=== PATIENT | male | born 1955 | race African-American/Black ===

== ENCOUNTER 2020-09-07 07:15 | Inpatient (IN) ==
[2020-09-07] MEDS ORDERED: LORazepam 2 MG/1 ML VIAL ONE (07:32)
[2020-09-07] MEDS ORDERED: LORazepam 2 MG/1 ML VIAL IV STA (08:07)
[2020-09-07 08:17] LABS: Basophils % 0.2 % (0.0-0.8); Eosinophils % 0.2 % (0.00-10.9); Hematocrit 36.9 VOL% (42.0-52.0); Hemoglobin 12.5 GM/DL (14.0-18.0); Immature Granulocytes % 0.4 %; Immature Granulocytes Absolute 0.06 #; Lymphocytes # 0.7 10*3/uL (1.4-4.0); Lymphocytes % 5.1 % (21.2-54.2); Mean Corpuscular HGB Conc 33.9 GM/DL (32-36); Mean Corpuscular Volume 87.4 FL (87-102); Mean Platelet Volume 10.5 FL (9.6-12.0); Monocytes % 2.9 % (1.7-12.7); Neutrophils % 91.2 % (38.7-73.9); Platelet Count 203 T/CUMM (130-400); Red Blood Count 4.22 MC/CUMM (3.8-5.5); Red Cell Distribution Width 12.5 % (9.3-17.3); White Blood Count 14.4 T/CUMM (4-12)
[2020-09-07 08:37] LABS: Alanine Aminotransferase 20 U/L (16-61); Alkaline Phosphatase 103 U/L (45-117); Aspartate Amino Transferase 28 U/L (0-37); Bilirubin,Total < 0.39 MG/DL (0.2-1.0); Blood Urea Nitrogen 30 MG/DL (7-18); Estimated Glom Filtration Rate 78 ML/MIN; Glucose 230 MG/DL (74-106); Osmolality,Calculated 291.4 MOS/KG (273-304); Total Protein 7.9 G/DL (6.4-8.3)
[2020-09-07 08:43] LABS: Band Neutrophils 1 % (0-10); Lymphocytes 8 % (20-55); Segmented Neutrophils 89 % (50-85); Total Cells Counted 100
[2020-09-07 08:44] LABS: Hypochromasia 1+; Microcytosis 1+
[2020-09-07 09:03] LABS: Amorphous Crystals,Urine Occasional /HPF (Few); Bacteria,Urine Occasional /HPF (Few); Bilirubin,Urine Negative (Negative); Blood, Urine Negative (Negative); Glucose,Urine (UA) >=500 mg/dL (Negative); Hyaline Casts,Urine 3 /LPF (0-3); Ketones,Urine Negative (Negative); Mucus,Urine Few /LPF (Occasional); Nitrite,Urine Negative (Negative); Protein,Urine 100 MG/DL; RBC,Urine 6 /HPF (0-4); Squamous Epithelial Cell,Urine Occasional /HPF (0-10); Urine Appearance CLEAR (Clear); Urine Color Yellow (Yellow); Urine Specific Gravity 1.021 (1.001-1.035); Urine Urobilinogen < 2.0 EU/DL (0.2-1.0); WBC,Urine 2 /HPF (0-6)
[2020-09-07] MEDS ORDERED: LORazepam 2 MG/1 ML VIAL IV PRN (10:40)
[2020-09-07] MEDS ORDERED: levETIRAcetam 500 MG/5 ML VIAL IV ONE (10:55)
[2020-09-07] MEDS ORDERED: cefTRIAXone 1,000 MG VIAL ONE (10:56)
[2020-09-07] MEDS ORDERED: hydrALAZINE 20 MG/1 ML VIAL IV PRN (10:57)
[2020-09-07] MEDS ORDERED: DEXTROSE 50% 25 GM/50 ML VIAL IV PRN (10:57)
[2020-09-07] MEDS ORDERED: ONDANSETRON 4 MG/2 ML VIAL IV PRN (10:57)
[2020-09-07] MEDS ORDERED: GLUCAGON 1 MG VIAL IM PRN (10:57)
[2020-09-07] MEDS: cefTRIAXone 2,000 MG in SYRINGE 1 EACH IV SCH (11:30)
[2020-09-07 12:25] LABS: Barbiturates Screen,Urine Negative (Negative); Benzodiazepines Screen,Urine Negative (Negative); Cannabinoid Screen,Urine Negative (Negative); Opiate Screen,Urine Negative (Negative); Phencyclidine Screen,Urine Negative (Negative)
[2020-09-07] MEDS: SODIUM CHLORIDE 0.45% 1,000 ML IV SCH ×2 (13:10→21:51)
[2020-09-07] MEDS: INSULIN LISPRO 100 UNIT/ML SUBCUT SCH ×2 (13:11→18:29)
[2020-09-07 13:28] LABS: Risk Ratio 3.54; Thyroid Stimulating Hormone 1.09 uIU/ml (0.358-3.74); VLDL CHOLESTEROL 10.6 MG/DL
[2020-09-07] MEDS: ENOXAPARIN 40 MG/0.4 ML SYRINGE SUBCUT SCH (21:39)
[2020-09-07] MEDS: INSULIN GLARGINE 100 UNIT/ML SUBCUT SCH (21:39)
[2020-09-08] MEDS: INSULIN LISPRO 100 UNIT/ML SUBCUT SCH ×5 (00:10→23:33)
[2020-09-08] MEDS: SODIUM CHLORIDE 0.45% 1,000 ML IV SCH ×2 (06:23→16:19)
[2020-09-08 06:34] LABS: Basophils % 0.2 % (0.0-0.8); Eosinophils % 0.1 % (0.00-10.9); Hematocrit 36.5 VOL% (42.0-52.0); Immature Granulocytes % 0.3 %; Immature Granulocytes Absolute 0.03 #; Lymphocytes # 1.5 10*3/uL (1.4-4.0); Lymphocytes % 13.7 % (21.2-54.2); Mean Corpuscular HGB Conc 32.9 GM/DL (32-36); Mean Corpuscular Volume 88.2 FL (87-102); Mean Platelet Volume 10.4 FL (9.6-12.0); Monocytes % 4.8 % (1.7-12.7); Neutrophils % 80.9 % (38.7-73.9); Platelet Count 215 T/CUMM (130-400); Red Blood Count 4.14 MC/CUMM (3.8-5.5); Red Cell Distribution Width 12.7 % (9.3-17.3); White Blood Count 10.7 T/CUMM (4-12)
[2020-09-08 07:27] LABS: Calcium 8.9 MG/DL (8.5-10.1); Osmolality,Calculated 284.4 MOS/KG (273-304)
[2020-09-08] MEDS: cefTRIAXone 2,000 MG in SYRINGE 1 EACH IV SCH (16:18)
[2020-09-08] MEDS: levETIRAcetam 500 MG TABLET PO SCH ×2 (16:20→20:34)
[2020-09-08] MEDS: AZITHROMYCIN 250 MG TABLET PO SCH (16:20)
[2020-09-08] MEDS: INSULIN GLARGINE 100 UNIT/ML SUBCUT SCH (20:17)
[2020-09-08] MEDS: ENOXAPARIN 40 MG/0.4 ML SYRINGE SUBCUT SCH (20:34)
[2020-09-08] MEDS: ATORVASTATIN 80 MG TABLET PO SCH (20:34)
[2020-09-08] MEDS ORDERED: ATORVASTATIN 40 MG TABLET PO SCH (21:00)
[2020-09-09] MEDS: SODIUM CHLORIDE 0.45% 1,000 ML IV SCH ×3 (00:48→18:24)
[2020-09-09 05:36] LABS: Basophils % 0.2 % (0.0-0.8); Hematocrit 34.9 VOL% (42.0-52.0); Hemoglobin 11.5 GM/DL (14.0-18.0); Immature Granulocytes % 0.2 %; Immature Granulocytes Absolute 0.02 #; Lymphocytes # 1.2 10*3/uL (1.4-4.0); Lymphocytes % 11.4 % (21.2-54.2); Mean Corpuscular Volume 88.1 FL (87-102); Mean Platelet Volume 10.7 FL (9.6-12.0); Monocytes % 5.9 % (1.7-12.7); Neutrophils % 82.3 % (38.7-73.9); Platelet Count 186 T/CUMM (130-400); Red Blood Count 3.96 MC/CUMM (3.8-5.5); Red Cell Distribution Width 12.7 % (9.3-17.3); White Blood Count 10.4 T/CUMM (4-12)
[2020-09-09 05:52] LABS: Calcium 8.2 MG/DL (8.5-10.1); Osmolality,Calculated 286.7 MOS/KG (273-304)
[2020-09-09] MEDS: INSULIN LISPRO 100 UNIT/ML SUBCUT SCH ×4 (05:57→23:47)
[2020-09-09] MEDS: AZITHROMYCIN 250 MG TABLET PO SCH (10:06)
[2020-09-09] MEDS: DONEPEZIL 10 MG TABLET PO SCH (10:06)
[2020-09-09] MEDS: levETIRAcetam 500 MG TABLET PO SCH ×2 (10:07→20:57)
[2020-09-09] MEDS: PANTOPRAZOLE 40 MG TABLET PO SCH (10:07)
[2020-09-09] MEDS: SERTRALINE 100 MG TABLET PO SCH (10:07)
[2020-09-09] MEDS: amLODIPine 5 MG TABLET PO SCH (10:07)
[2020-09-09] MEDS: ASPIRIN CHEW 81 MG TABLET PO SCH (10:10)
[2020-09-09] MEDS: cefTRIAXone 2,000 MG in SYRINGE 1 EACH IV SCH (10:45)
[2020-09-09] MEDS: ACETAMINOPHEN 325 MG TABLET PO PRN (11:40)
[2020-09-09 18:20] LABS: Bilirubin,Urine Negative (Negative); Blood, Urine Negative (Negative); Glucose,Urine (UA) Negative (Negative); Ketones,Urine 5 mg/dL (Negative); Mucus,Urine Occasional /LPF (Occasional); Nitrite,Urine Negative (Negative); Protein,Urine 100 MG/DL; RBC,Urine 4 /HPF (0-4); Urine Appearance Slightly Hazy (Clear); Urine Color Amber (Yellow); Urine Specific Gravity 1.029 (1.001-1.035); Urine Urobilinogen < 2.0 EU/DL (0.2-1.0); WBC,Urine 2 /HPF (0-6)
[2020-09-09 19:08] LABS: Ferritin 677.4 ng/ml (26-388)
[2020-09-09] MEDS: ENOXAPARIN 40 MG/0.4 ML SYRINGE SUBCUT SCH (20:57)
[2020-09-09] MEDS: ATORVASTATIN 80 MG TABLET PO SCH (20:57)
[2020-09-09] MEDS: INSULIN GLARGINE 100 UNIT/ML SUBCUT SCH (23:45)
[2020-09-10] MEDS: SODIUM CHLORIDE 0.45% 1,000 ML IV SCH ×3 (02:58→10:23)
[2020-09-10] MEDS: INSULIN LISPRO 100 UNIT/ML SUBCUT SCH ×3 (05:12→17:58)
[2020-09-10 06:03] LABS: Basophils % 0.2 % (0.0-0.8); Eosinophils % 0.1 % (0.00-10.9); Hematocrit 32.5 VOL% (42.0-52.0); Hemoglobin 10.9 GM/DL (14.0-18.0); Immature Granulocytes % 0.4 %; Immature Granulocytes Absolute 0.04 #; Lymphocytes # 1.2 10*3/uL (1.4-4.0); Lymphocytes % 12.5 % (21.2-54.2); Mean Corpuscular HGB Conc 33.5 GM/DL (32-36); Mean Corpuscular Volume 87.8 FL (87-102); Mean Platelet Volume 10.8 FL (9.6-12.0); Monocytes % 8.9 % (1.7-12.7); Neutrophils % 77.9 % (38.7-73.9); Platelet Count 166 T/CUMM (130-400); Red Cell Distribution Width 12.6 % (9.3-17.3); White Blood Count 9.3 T/CUMM (4-12)
[2020-09-10 06:30] LABS: Calcium 8.1 MG/DL (8.5-10.1); Osmolality,Calculated 286.7 MOS/KG (273-304)
[2020-09-10] MEDS: SERTRALINE 100 MG TABLET PO SCH (09:49)
[2020-09-10] MEDS: ASPIRIN CHEW 81 MG TABLET PO SCH (09:49)
[2020-09-10] MEDS: DONEPEZIL 10 MG TABLET PO SCH (09:50)
[2020-09-10] MEDS: PANTOPRAZOLE 40 MG TABLET PO SCH (09:50)
[2020-09-10] MEDS: levETIRAcetam 500 MG TABLET PO SCH ×2 (09:50→20:24)
[2020-09-10] MEDS: ACETAMINOPHEN 325 MG TABLET PO PRN (09:50)
[2020-09-10] MEDS: AZITHROMYCIN 250 MG TABLET PO SCH (09:50)
[2020-09-10] MEDS: amLODIPine 5 MG TABLET PO SCH (09:50)
[2020-09-10] MEDS: cefTRIAXone 2,000 MG in SYRINGE 1 EACH IV SCH (10:23)
[2020-09-10] MEDS: POLYETHYLENE GLYCOL POWDER 17 GM PACK PO SCH (16:08)
[2020-09-10 18:00] LABS: Amorphous Crystals,Urine Occasional /HPF (Few); Bacteria,Urine Few /HPF (Few); Bilirubin,Urine Negative (Negative); Blood, Urine Negative (Negative); Glucose,Urine (UA) 50 mg/dL (Negative); Ketones,Urine 20 mg/dL (Negative); Nitrite,Urine Negative (Negative); Protein,Urine 30 MG/DL; Squamous Epithelial Cell,Urine Occasional /HPF (0-10); Urine Appearance Slightly Hazy (Clear); Urine Color Yellow (Yellow); Urine Specific Gravity 1.024 (1.001-1.035); Urine Urobilinogen < 2.0 EU/DL (0.2-1.0)
[2020-09-10] MEDS: ENOXAPARIN 40 MG/0.4 ML SYRINGE SUBCUT SCH (20:24)
[2020-09-10] MEDS: ATORVASTATIN 80 MG TABLET PO SCH (20:24)
[2020-09-10] MEDS: INSULIN GLARGINE 100 UNIT/ML SUBCUT SCH (20:25)
[2020-09-11] MEDS: INSULIN LISPRO 100 UNIT/ML SUBCUT SCH ×4 (00:48→17:38)
[2020-09-11] MEDS: SODIUM CHLORIDE 0.45% 1,000 ML IV SCH ×4 (04:25→22:39)
[2020-09-11 06:06] LABS: Basophils % 0.2 % (0.0-0.8); Eosinophils # 0.1 10*3/uL (0.0-0.87); Eosinophils % 0.7 % (0.00-10.9); Hematocrit 31.9 VOL% (42.0-52.0); Hemoglobin 10.7 GM/DL (14.0-18.0); Immature Granulocytes % 0.5 %; Immature Granulocytes Absolute 0.05 #; Lymphocytes # 0.8 10*3/uL (1.4-4.0); Lymphocytes % 7.9 % (21.2-54.2); Mean Corpuscular HGB Conc 33.5 GM/DL (32-36); Mean Corpuscular Volume 86.7 FL (87-102); Mean Platelet Volume 10.5 FL (9.6-12.0); Monocytes % 8.5 % (1.7-12.7); Neutrophils % 82.2 % (38.7-73.9); Platelet Count 168 T/CUMM (130-400); Red Blood Count 3.68 MC/CUMM (3.8-5.5); Red Cell Distribution Width 12.5 % (9.3-17.3); White Blood Count 10.2 T/CUMM (4-12)
[2020-09-11 06:23] LABS: Calcium 8.5 MG/DL (8.5-10.1); Osmolality,Calculated 284.8 MOS/KG (273-304)
[2020-09-11] MEDS: levETIRAcetam 500 MG TABLET PO SCH ×2 (09:09→20:40)
[2020-09-11] MEDS: POLYETHYLENE GLYCOL POWDER 17 GM PACK PO SCH (09:09)
[2020-09-11] MEDS: PANTOPRAZOLE 40 MG TABLET PO SCH (09:10)
[2020-09-11] MEDS: AZITHROMYCIN 250 MG TABLET PO SCH (09:10)
[2020-09-11] MEDS: SERTRALINE 100 MG TABLET PO SCH (09:10)
[2020-09-11] MEDS: DONEPEZIL 10 MG TABLET PO SCH (09:10)
[2020-09-11] MEDS: amLODIPine 5 MG TABLET PO SCH (09:10)
[2020-09-11] MEDS: ASPIRIN CHEW 81 MG TABLET PO SCH (09:10)
[2020-09-11] MEDS: cefTRIAXone 2,000 MG in SYRINGE 1 EACH IV SCH (11:50)
[2020-09-11 12:35] LABS: Calcium 8.7 MG/DL (8.5-10.1); Osmolality,Calculated 290.5 MOS/KG (273-304)
[2020-09-11 12:41] LABS: ABG Base Excess -2.4 MMOL/L (-2.5-2.5); ABG HCO3 22.4 MMOL/L (20-26); ABG Oxygen Saturation 97.5 % (95-100); ABG PCO2 35.7 MM HG (35-48); ABG PH 7.396 (7.35-7.45); ABG PO2 96.1 MM HG (80-95); ABG TCO2 19.3 MMOL/L (23-27)
[2020-09-11] MEDS: ACETAMINOPHEN 325 MG TABLET PO PRN (15:38)
[2020-09-11] MEDS: ENOXAPARIN 40 MG/0.4 ML SYRINGE SUBCUT SCH (20:40)
[2020-09-11] MEDS: ATORVASTATIN 80 MG TABLET PO SCH (20:40)
[2020-09-11] MEDS: INSULIN GLARGINE 100 UNIT/ML SUBCUT SCH (20:52)
[2020-09-12] MEDS: INSULIN LISPRO 100 UNIT/ML SUBCUT SCH ×4 (00:40→18:02)
[2020-09-12] MEDS: SODIUM CHLORIDE 0.45% 1,000 ML IV SCH ×3 (03:48→17:36)
[2020-09-12 05:53] LABS: Basophils % 0.2 % (0.0-0.8); Eosinophils % 0.3 % (0.00-10.9); Hematocrit 29.6 VOL% (42.0-52.0); Hemoglobin 9.7 GM/DL (14.0-18.0); Immature Granulocytes % 0.4 %; Immature Granulocytes Absolute 0.06 #; Lymphocytes # 0.9 10*3/uL (1.4-4.0); Lymphocytes % 6.3 % (21.2-54.2); Mean Corpuscular HGB Conc 32.8 GM/DL (32-36); Mean Corpuscular Volume 88.1 FL (87-102); Mean Platelet Volume 11.2 FL (9.6-12.0); Monocytes % 6.7 % (1.7-12.7); Neutrophils % 86.1 % (38.7-73.9); Platelet Count 199 T/CUMM (130-400); Red Blood Count 3.36 MC/CUMM (3.8-5.5); Red Cell Distribution Width 12.4 % (9.3-17.3); White Blood Count 14.6 T/CUMM (4-12)
[2020-09-12 06:09] LABS: Calcium 8.6 MG/DL (8.5-10.1); Osmolality,Calculated 283.8 MOS/KG (273-304)
[2020-09-12 06:21] LABS: Band Neutrophils 5 % (0-10); Lymphocytes 3 % (20-55); Nucleated Red Blood Cells 1 (0-5); Platelet Estimate Adequate; Segmented Neutrophils 88 % (50-85); Total Cells Counted 100
[2020-09-12 06:22] LABS: Hypochromasia 1+; Microcytosis 1+
[2020-09-12] MEDS: ASPIRIN CHEW 81 MG TABLET PO SCH (08:51)
[2020-09-12] MEDS: amLODIPine 5 MG TABLET PO SCH (08:51)
[2020-09-12] MEDS: PANTOPRAZOLE 40 MG TABLET PO SCH (08:51)
[2020-09-12] MEDS: DONEPEZIL 10 MG TABLET PO SCH (08:51)
[2020-09-12] MEDS: SERTRALINE 100 MG TABLET PO SCH (08:51)
[2020-09-12] MEDS: AZITHROMYCIN 250 MG TABLET PO SCH (08:51)
[2020-09-12] MEDS: levETIRAcetam 500 MG TABLET PO SCH (08:51)
[2020-09-12] MEDS: POLYETHYLENE GLYCOL POWDER 17 GM PACK PO SCH (10:50)
[2020-09-12] MEDS ORDERED: PHENYTOIN INJ 1,000 MG in SODIUM CHLORIDE 0.9% 100 ML IV ONE (11:25)
[2020-09-12] MEDS: CEFEPIME 1,000 MG in SODIUM CHLORIDE 0.9% 100 ML IV SCH ×2 (11:57→18:19)
[2020-09-12] MEDS: CLINDAMYCIN INJ 600 MG in PREMIX 1 EACH IV SCH ×2 (13:54→21:18)
[2020-09-12] MEDS: ATORVASTATIN 80 MG TABLET PO SCH (21:13)
[2020-09-12] MEDS: ENOXAPARIN 40 MG/0.4 ML SYRINGE SUBCUT SCH (21:14)
[2020-09-12] MEDS: PHENYTOIN 100 MG/2 ML VIAL IV SCH (21:18)
[2020-09-12] MEDS: INSULIN GLARGINE 100 UNIT/ML SUBCUT SCH (21:18)
[2020-09-13] MEDS: INSULIN LISPRO 100 UNIT/ML SUBCUT SCH ×4 (00:35→17:24)
[2020-09-13] MEDS: CEFEPIME 1,000 MG in SODIUM CHLORIDE 0.9% 100 ML IV SCH ×5 (00:38→23:11)
[2020-09-13] MEDS: CLINDAMYCIN INJ 600 MG in PREMIX 1 EACH IV SCH ×3 (04:48→20:38)
[2020-09-13] MEDS: PHENYTOIN 100 MG/2 ML VIAL IV SCH ×3 (04:48→20:37)
[2020-09-13] MEDS: SODIUM CHLORIDE 0.45% 1,000 ML IV SCH ×2 (06:20→15:57)
[2020-09-13 06:24] LABS: Basophils % 0.2 % (0.0-0.8); Eosinophils # 0.2 10*3/uL (0.0-0.87); Eosinophils % 1.4 % (0.00-10.9); Hematocrit 30.2 VOL% (42.0-52.0); Hemoglobin 10.1 GM/DL (14.0-18.0); Immature Granulocytes % 1.1 %; Immature Granulocytes Absolute 0.17 #; Lymphocytes # 1.1 10*3/uL (1.4-4.0); Mean Corpuscular HGB Conc 33.4 GM/DL (32-36); Mean Corpuscular Volume 87.3 FL (87-102); Mean Platelet Volume 10.7 FL (9.6-12.0); Neutrophils % 83.3 % (38.7-73.9); Platelet Count 204 T/CUMM (130-400); Red Blood Count 3.46 MC/CUMM (3.8-5.5); Red Cell Distribution Width 12.8 % (9.3-17.3); White Blood Count 15.4 T/CUMM (4-12)
[2020-09-13 06:48] LABS: Calcium 8.3 MG/DL (8.5-10.1); Osmolality,Calculated 284.5 MOS/KG (273-304)
[2020-09-13] MEDS: ASPIRIN CHEW 81 MG TABLET PO SCH (09:29)
[2020-09-13] MEDS: amLODIPine 5 MG TABLET PO SCH (09:29)
[2020-09-13] MEDS: PANTOPRAZOLE 40 MG TABLET PO SCH (09:29)
[2020-09-13] MEDS: DONEPEZIL 10 MG TABLET PO SCH (09:29)
[2020-09-13] MEDS: SERTRALINE 100 MG TABLET PO SCH (09:31)
[2020-09-13] MEDS: POLYETHYLENE GLYCOL POWDER 17 GM PACK PO SCH (09:42)
[2020-09-13] MEDS: ATORVASTATIN 80 MG TABLET PO SCH (20:37)
[2020-09-13] MEDS: ENOXAPARIN 40 MG/0.4 ML SYRINGE SUBCUT SCH (20:37)
[2020-09-13] MEDS: INSULIN GLARGINE 100 UNIT/ML SUBCUT SCH (20:39)
[2020-09-14] MEDS: INSULIN LISPRO 100 UNIT/ML SUBCUT SCH ×5 (00:23→23:26)
[2020-09-14] MEDS: SODIUM CHLORIDE 0.45% 1,000 ML IV SCH ×3 (00:53→16:38)
[2020-09-14] MEDS: PHENYTOIN 100 MG/2 ML VIAL IV SCH ×3 (03:06→19:35)
[2020-09-14] MEDS: CLINDAMYCIN INJ 600 MG in PREMIX 1 EACH IV SCH ×3 (04:09→20:07)
[2020-09-14] MEDS: CEFEPIME 1,000 MG in SODIUM CHLORIDE 0.9% 100 ML IV SCH ×4 (05:24→23:08)
[2020-09-14 06:44] LABS: Basophils % 0.3 % (0.0-0.8); Eosinophils # 0.2 10*3/uL (0.0-0.87); Eosinophils % 1.2 % (0.00-10.9); Hematocrit 28.6 VOL% (42.0-52.0); Hemoglobin 9.4 GM/DL (14.0-18.0); Immature Granulocytes % 1.5 %; Immature Granulocytes Absolute 0.22 #; Lymphocytes # 1.2 10*3/uL (1.4-4.0); Lymphocytes % 8.4 % (21.2-54.2); Mean Corpuscular HGB Conc 32.9 GM/DL (32-36); Mean Corpuscular Volume 87.5 FL (87-102); Mean Platelet Volume 10.3 FL (9.6-12.0); Monocytes % 5.8 % (1.7-12.7); Neutrophils % 82.8 % (38.7-73.9); Platelet Count 244 T/CUMM (130-400); Red Blood Count 3.27 MC/CUMM (3.8-5.5); Red Cell Distribution Width 12.8 % (9.3-17.3); White Blood Count 14.7 T/CUMM (4-12)
[2020-09-14 06:47] LABS: Calcium 8.2 MG/DL (8.5-10.1); Osmolality,Calculated 285.3 MOS/KG (273-304)
[2020-09-14] MEDS: ASPIRIN CHEW 81 MG TABLET PO SCH (08:58)
[2020-09-14] MEDS: DONEPEZIL 10 MG TABLET PO SCH (08:58)
[2020-09-14] MEDS: SERTRALINE 100 MG TABLET PO SCH (08:58)
[2020-09-14] MEDS: amLODIPine 5 MG TABLET PO SCH (08:59)
[2020-09-14] MEDS: PANTOPRAZOLE 40 MG TABLET PO SCH (08:59)
[2020-09-14] MEDS: POLYETHYLENE GLYCOL POWDER 17 GM PACK PO SCH (10:10)
[2020-09-14] MEDS: ATORVASTATIN 80 MG TABLET PO SCH (20:08)
[2020-09-14] MEDS: INSULIN GLARGINE 100 UNIT/ML SUBCUT SCH (20:08)
[2020-09-14] MEDS: ENOXAPARIN 40 MG/0.4 ML SYRINGE SUBCUT SCH (20:08)
[2020-09-15] MEDS: PHENYTOIN 100 MG/2 ML VIAL IV SCH ×3 (03:32→20:30)
[2020-09-15] MEDS: CLINDAMYCIN INJ 600 MG in PREMIX 1 EACH IV SCH ×3 (04:11→20:32)
[2020-09-15] MEDS: CEFEPIME 1,000 MG in SODIUM CHLORIDE 0.9% 100 ML IV SCH ×4 (05:02→23:29)
[2020-09-15 05:55] LABS: Basophils % 0.3 % (0.0-0.8); Eosinophils # 0.2 10*3/uL (0.0-0.87); Eosinophils % 1.2 % (0.00-10.9); Hematocrit 30.7 VOL% (42.0-52.0); Hemoglobin 10.4 GM/DL (14.0-18.0); Immature Granulocytes % 3.9 %; Immature Granulocytes Absolute 0.51 #; Lymphocytes # 1.4 10*3/uL (1.4-4.0); Lymphocytes % 10.6 % (21.2-54.2); Mean Corpuscular HGB Conc 33.9 GM/DL (32-36); Mean Corpuscular Volume 87.2 FL (87-102); Mean Platelet Volume 10.1 FL (9.6-12.0); Monocytes % 6.6 % (1.7-12.7); Neutrophils % 77.4 % (38.7-73.9); Platelet Count 273 T/CUMM (130-400); Red Blood Count 3.52 MC/CUMM (3.8-5.5); Red Cell Distribution Width 12.9 % (9.3-17.3)
[2020-09-15 05:57] LABS: Calcium 8.4 MG/DL (8.5-10.1); Osmolality,Calculated 283.3 MOS/KG (273-304)
[2020-09-15] MEDS: INSULIN LISPRO 100 UNIT/ML SUBCUT SCH ×3 (06:01→17:55)
[2020-09-15] MEDS: SODIUM CHLORIDE 0.45% 1,000 ML IV SCH ×3 (06:32→19:43)
[2020-09-15 08:17] LABS: Band Neutrophils 5 % (0-10); Eosinophils 1 % (0-10); Lymphocytes 15 % (20-55); Platelet Estimate Normal; Segmented Neutrophils 73 % (50-85); Total Cells Counted 100
[2020-09-15 08:18] LABS: Anisocytosis 1+
[2020-09-15] MEDS: SERTRALINE 100 MG TABLET PO SCH (10:03)
[2020-09-15] MEDS: DONEPEZIL 10 MG TABLET PO SCH (10:03)
[2020-09-15] MEDS: ASPIRIN CHEW 81 MG TABLET PO SCH (10:03)
[2020-09-15] MEDS: amLODIPine 5 MG TABLET PO SCH (10:03)
[2020-09-15] MEDS: PANTOPRAZOLE 40 MG TABLET PO SCH (10:03)
[2020-09-15] MEDS: POLYETHYLENE GLYCOL POWDER 17 GM PACK PO SCH (10:04)
[2020-09-15] MEDS: ENOXAPARIN 40 MG/0.4 ML SYRINGE SUBCUT SCH (20:31)
[2020-09-15] MEDS: INSULIN GLARGINE 100 UNIT/ML SUBCUT SCH (20:32)
[2020-09-15] MEDS: ATORVASTATIN 80 MG TABLET PO SCH (20:32)
[2020-09-16] MEDS: INSULIN LISPRO 100 UNIT/ML SUBCUT SCH ×4 (00:03→17:45)
[2020-09-16] MEDS: SODIUM CHLORIDE 0.45% 1,000 ML IV SCH ×3 (01:28→16:34)
[2020-09-16] MEDS: PHENYTOIN 100 MG/2 ML VIAL IV SCH ×3 (03:15→20:54)
[2020-09-16] MEDS: CLINDAMYCIN INJ 600 MG in PREMIX 1 EACH IV SCH ×3 (04:19→21:22)
[2020-09-16] MEDS: CEFEPIME 1,000 MG in SODIUM CHLORIDE 0.9% 100 ML IV SCH ×4 (05:15→23:51)
[2020-09-16 06:26] LABS: Basophils % 0.3 % (0.0-0.8); Eosinophils # 0.1 10*3/uL (0.0-0.87); Eosinophils % 0.7 % (0.00-10.9); Hematocrit 30.9 VOL% (42.0-52.0); Hemoglobin 10.3 GM/DL (14.0-18.0); Immature Granulocytes % 3.7 %; Lymphocytes # 1.1 10*3/uL (1.4-4.0); Lymphocytes % 8.3 % (21.2-54.2); Mean Corpuscular HGB Conc 33.3 GM/DL (32-36); Mean Corpuscular Volume 88.3 FL (87-102); Mean Platelet Volume 10.3 FL (9.6-12.0); Monocytes % 6.8 % (1.7-12.7); Neutrophils % 80.2 % (38.7-73.9); Platelet Count 276 T/CUMM (130-400); Red Cell Distribution Width 12.6 % (9.3-17.3); White Blood Count 13.5 T/CUMM (4-12)
[2020-09-16 06:40] LABS: Calcium 8.4 MG/DL (8.5-10.1); Osmolality,Calculated 284.5 MOS/KG (273-304)
[2020-09-16] MEDS: ASPIRIN CHEW 81 MG TABLET PO SCH (09:41)
[2020-09-16] MEDS: amLODIPine 5 MG TABLET PO SCH (09:41)
[2020-09-16] MEDS: POLYETHYLENE GLYCOL POWDER 17 GM PACK PO SCH (09:41)
[2020-09-16] MEDS: DONEPEZIL 10 MG TABLET PO SCH (09:41)
[2020-09-16] MEDS: PANTOPRAZOLE 40 MG TABLET PO SCH (09:41)
[2020-09-16] MEDS: SERTRALINE 100 MG TABLET PO SCH (09:42)
[2020-09-16] MEDS: ENOXAPARIN 40 MG/0.4 ML SYRINGE SUBCUT SCH (21:59)
[2020-09-16] MEDS: INSULIN GLARGINE 100 UNIT/ML SUBCUT SCH (21:59)
[2020-09-16] MEDS: ATORVASTATIN 80 MG TABLET PO SCH (21:59)
[2020-09-17] MEDS: INSULIN LISPRO 100 UNIT/ML SUBCUT SCH ×4 (00:45→18:34)
[2020-09-17] MEDS: SODIUM CHLORIDE 0.45% 1,000 ML IV SCH ×3 (01:00→20:32)
[2020-09-17] MEDS: PHENYTOIN 100 MG/2 ML VIAL IV SCH ×3 (03:54→17:20)
[2020-09-17] MEDS ORDERED: ALBUTEROL/IPRATROPIUM 3 ML NEB RESP TX PRN (04:01)
[2020-09-17] MEDS ORDERED: methylPREDNISolone SOD SUC 40 MG/1 ML VIAL IV ONE (04:30)
[2020-09-17] MEDS: CLINDAMYCIN INJ 600 MG in PREMIX 1 EACH IV SCH ×3 (05:20→21:25)
[2020-09-17 06:55] LABS: Basophils % 0.2 % (0.0-0.8); Eosinophils # 0.1 10*3/uL (0.0-0.87); Eosinophils % 0.4 % (0.00-10.9); Hematocrit 32.9 VOL% (42.0-52.0); Hemoglobin 10.9 GM/DL (14.0-18.0); Immature Granulocytes % 1.9 %; Immature Granulocytes Absolute 0.32 #; Lymphocytes # 1.2 10*3/uL (1.4-4.0); Lymphocytes % 6.8 % (21.2-54.2); Mean Corpuscular HGB Conc 33.1 GM/DL (32-36); Mean Corpuscular Volume 88.7 FL (87-102); Mean Platelet Volume 10.6 FL (9.6-12.0); Monocytes % 5.2 % (1.7-12.7); Neutrophils % 85.5 % (38.7-73.9); Platelet Count 235 T/CUMM (130-400); Red Blood Count 3.71 MC/CUMM (3.8-5.5); Red Cell Distribution Width 12.9 % (9.3-17.3)
[2020-09-17] MEDS ORDERED: ALBUTEROL/IPRATROPIUM 3 ML NEB RESP TX SCH (07:00)
[2020-09-17] MEDS: CEFEPIME 1,000 MG in SODIUM CHLORIDE 0.9% 100 ML IV SCH ×3 (07:00→18:34)
[2020-09-17] MEDS: ALBUTEROL/IPRATROPIUM 3 ML NEB RESP TX SCH ×4 (07:19→23:40)
[2020-09-17 07:34] LABS: Calcium 8.1 MG/DL (8.5-10.1); Osmolality,Calculated 272.1 MOS/KG (273-304)
[2020-09-17] MEDS ORDERED: ACETAMINOPHEN 650 MG SUPP RECTAL PRN (07:50)
[2020-09-17] MEDS: amLODIPine 5 MG TABLET PO SCH (09:00)
[2020-09-17] MEDS: SERTRALINE 100 MG TABLET PO SCH (09:00)
[2020-09-17] MEDS: PANTOPRAZOLE 40 MG TABLET PO SCH (09:00)
[2020-09-17] MEDS: POLYETHYLENE GLYCOL POWDER 17 GM PACK PO SCH (09:00)
[2020-09-17] MEDS: ASPIRIN CHEW 81 MG TABLET PO SCH (09:00)
[2020-09-17] MEDS: DONEPEZIL 10 MG TABLET PO SCH (09:00)
[2020-09-17] MEDS: INSULIN GLARGINE 100 UNIT/ML SUBCUT SCH (20:32)
[2020-09-17] MEDS: ATORVASTATIN 80 MG TABLET PO SCH (20:32)
[2020-09-17] MEDS: ENOXAPARIN 40 MG/0.4 ML SYRINGE SUBCUT SCH (21:25)
[2020-09-18] MEDS: CEFEPIME 1,000 MG in SODIUM CHLORIDE 0.9% 100 ML IV SCH ×4 (00:25→18:19)
[2020-09-18] MEDS: INSULIN LISPRO 100 UNIT/ML SUBCUT SCH ×4 (00:25→18:44)
[2020-09-18] MEDS: PHENYTOIN 100 MG/2 ML VIAL IV SCH ×4 (00:25→18:20)
[2020-09-18] MEDS: ALBUTEROL/IPRATROPIUM 3 ML NEB RESP TX SCH ×7 (03:49→23:38)
[2020-09-18] MEDS: CLINDAMYCIN INJ 600 MG in PREMIX 1 EACH IV SCH ×3 (05:26→22:04)
[2020-09-18 06:14] LABS: Basophils % 0.3 % (0.0-0.8); Eosinophils # 0.1 10*3/uL (0.0-0.87); Eosinophils % 0.8 % (0.00-10.9); Hematocrit 27.6 VOL% (42.0-52.0); Hemoglobin 9.1 GM/DL (14.0-18.0); Immature Granulocytes % 1.7 %; Immature Granulocytes Absolute 0.25 #; Lymphocytes # 1.5 10*3/uL (1.4-4.0); Lymphocytes % 9.8 % (21.2-54.2); Mean Platelet Volume 9.6 FL (9.6-12.0); Monocytes % 5.6 % (1.7-12.7); Neutrophils % 81.8 % (38.7-73.9); Platelet Count 263 T/CUMM (130-400); Red Cell Distribution Width 13.2 % (9.3-17.3); White Blood Count 15.1 T/CUMM (4-12)
[2020-09-18 06:30] LABS: Calcium 8.1 MG/DL (8.5-10.1)
[2020-09-18] MEDS: DONEPEZIL 10 MG TABLET PO SCH (10:58)
[2020-09-18] MEDS: ASPIRIN CHEW 81 MG TABLET PO SCH (10:58)
[2020-09-18] MEDS: amLODIPine 5 MG TABLET PO SCH (10:59)
[2020-09-18] MEDS: SERTRALINE 100 MG TABLET PO SCH (10:59)
[2020-09-18] MEDS: POLYETHYLENE GLYCOL POWDER 17 GM PACK PO SCH (10:59)
[2020-09-18] MEDS: PANTOPRAZOLE 40 MG TABLET PO SCH (11:01)
[2020-09-18] MEDS: SODIUM CHLORIDE 0.45% 1,000 ML IV SCH (12:04)
[2020-09-18] MEDS: POTASSIUM CHLORIDE RIDER 10 MEQ in PREMIX 1 EACH IV PRN ×3 (15:20→17:23)
[2020-09-18] MEDS: ENOXAPARIN 40 MG/0.4 ML SYRINGE SUBCUT SCH (22:14)
[2020-09-18] MEDS: ATORVASTATIN 80 MG TABLET PO SCH (22:17)
[2020-09-18] MEDS: INSULIN GLARGINE 100 UNIT/ML SUBCUT SCH (23:46)
[2020-09-19] MEDS: CEFEPIME 1,000 MG in SODIUM CHLORIDE 0.9% 100 ML IV SCH ×4 (00:39→23:15)
[2020-09-19] MEDS: INSULIN LISPRO 100 UNIT/ML SUBCUT SCH ×4 (00:45→18:30)
[2020-09-19] MEDS: PHENYTOIN 100 MG/2 ML VIAL IV SCH ×4 (00:50→18:23)
[2020-09-19] MEDS: POTASSIUM CHLORIDE RIDER 10 MEQ in PREMIX 1 EACH IV PRN (02:35)
[2020-09-19] MEDS: ALBUTEROL/IPRATROPIUM 3 ML NEB RESP TX SCH ×6 (04:35→23:56)
[2020-09-19 06:12] LABS: Basophils % 0.2 % (0.0-0.8); Eosinophils # 0.1 10*3/uL (0.0-0.87); Hemoglobin 9.8 GM/DL (14.0-18.0); Immature Granulocytes Absolute 0.26 #; Lymphocytes # 1.7 10*3/uL (1.4-4.0); Lymphocytes % 13.3 % (21.2-54.2); Mean Corpuscular HGB Conc 32.7 GM/DL (32-36); Mean Platelet Volume 9.4 FL (9.6-12.0); Monocytes % 7.3 % (1.7-12.7); Neutrophils % 76.2 % (38.7-73.9); Platelet Count 317 T/CUMM (130-400); Red Blood Count 3.37 MC/CUMM (3.8-5.5); White Blood Count 12.8 T/CUMM (4-12)
[2020-09-19] MEDS: CLINDAMYCIN INJ 600 MG in PREMIX 1 EACH IV SCH ×2 (07:00→16:28)
[2020-09-19 08:49] LABS: Calcium 8.6 MG/DL (8.5-10.1); Osmolality,Calculated 282.4 MOS/KG (273-304)
[2020-09-19] MEDS: ASPIRIN CHEW 81 MG TABLET PO SCH (12:04)
[2020-09-19] MEDS: PANTOPRAZOLE 40 MG TABLET PO SCH (12:04)
[2020-09-19] MEDS: POLYETHYLENE GLYCOL POWDER 17 GM PACK PO SCH (12:04)
[2020-09-19] MEDS: amLODIPine 5 MG TABLET PO SCH (12:04)
[2020-09-19] MEDS: DONEPEZIL 10 MG TABLET PO SCH (12:04)
[2020-09-19] MEDS: SERTRALINE 100 MG TABLET PO SCH (12:05)
[2020-09-19] MEDS: SODIUM CHLORIDE 0.45% 1,000 ML IV SCH (12:10)
[2020-09-19] MEDS: ENOXAPARIN 40 MG/0.4 ML SYRINGE SUBCUT SCH (21:31)
[2020-09-19] MEDS: INSULIN GLARGINE 100 UNIT/ML SUBCUT SCH (21:38)
[2020-09-19] MEDS: ATORVASTATIN 80 MG TABLET PO SCH (21:39)
[2020-09-20] MEDS: CLINDAMYCIN INJ 600 MG in PREMIX 1 EACH IV SCH (00:10)
[2020-09-20] MEDS: PHENYTOIN 100 MG/2 ML VIAL IV SCH ×4 (01:02→17:22)
[2020-09-20] MEDS: INSULIN LISPRO 100 UNIT/ML SUBCUT SCH ×4 (01:31→18:34)
[2020-09-20] MEDS: ALBUTEROL/IPRATROPIUM 3 ML NEB RESP TX SCH ×6 (03:15→23:01)
[2020-09-20 05:41] LABS: Basophils % 0.2 % (0.0-0.8); Eosinophils # 0.1 10*3/uL (0.0-0.87); Hematocrit 30.2 VOL% (42.0-52.0); Hemoglobin 9.9 GM/DL (14.0-18.0); Immature Granulocytes % 1.4 %; Immature Granulocytes Absolute 0.14 #; Lymphocytes # 1.2 10*3/uL (1.4-4.0); Lymphocytes % 11.7 % (21.2-54.2); Mean Corpuscular HGB Conc 32.8 GM/DL (32-36); Mean Corpuscular Volume 89.1 FL (87-102); Mean Platelet Volume 9.3 FL (9.6-12.0); Monocytes % 6.6 % (1.7-12.7); Neutrophils % 79.1 % (38.7-73.9); Platelet Count 322 T/CUMM (130-400); Red Blood Count 3.39 MC/CUMM (3.8-5.5); Red Cell Distribution Width 13.1 % (9.3-17.3); White Blood Count 10.1 T/CUMM (4-12)
[2020-09-20 05:55] LABS: Calcium 8.6 MG/DL (8.5-10.1); Osmolality,Calculated 278.5 MOS/KG (273-304)
[2020-09-20] MEDS: SERTRALINE 100 MG TABLET PO SCH (09:40)
[2020-09-20] MEDS: PANTOPRAZOLE 40 MG TABLET PO SCH (09:40)
[2020-09-20] MEDS: ASPIRIN CHEW 81 MG TABLET PO SCH (09:40)
[2020-09-20] MEDS: POLYETHYLENE GLYCOL POWDER 17 GM PACK PO SCH (09:40)
[2020-09-20] MEDS: DONEPEZIL 10 MG TABLET PO SCH (09:40)
[2020-09-20] MEDS: amLODIPine 5 MG TABLET PO SCH (09:40)
[2020-09-20] MEDS: SODIUM CHLORIDE 0.45% 1,000 ML IV SCH (15:04)
[2020-09-20] MEDS: ATORVASTATIN 80 MG TABLET PO SCH (21:38)
[2020-09-20] MEDS: ENOXAPARIN 40 MG/0.4 ML SYRINGE SUBCUT SCH (21:38)
[2020-09-20] MEDS: INSULIN GLARGINE 100 UNIT/ML SUBCUT SCH (21:43)
[2020-09-21] MEDS: PHENYTOIN 100 MG/2 ML VIAL IV SCH ×4 (00:14→20:02)
[2020-09-21] MEDS: INSULIN LISPRO 100 UNIT/ML SUBCUT SCH ×4 (00:15→18:34)
[2020-09-21] MEDS: ALBUTEROL/IPRATROPIUM 3 ML NEB RESP TX SCH ×6 (03:55→23:58)
[2020-09-21 06:18] LABS: Basophils % 0.3 % (0.0-0.8); Eosinophils # 0.1 10*3/uL (0.0-0.87); Hematocrit 32.3 VOL% (42.0-52.0); Hemoglobin 10.5 GM/DL (14.0-18.0); Immature Granulocytes Absolute 0.11 #; Lymphocytes # 1.6 10*3/uL (1.4-4.0); Mean Corpuscular HGB Conc 32.5 GM/DL (32-36); Mean Corpuscular Volume 89.5 FL (87-102); Mean Platelet Volume 9.6 FL (9.6-12.0); Monocytes % 5.6 % (1.7-12.7); Neutrophils % 78.1 % (38.7-73.9); Platelet Count 332 T/CUMM (130-400); Red Blood Count 3.61 MC/CUMM (3.8-5.5); Red Cell Distribution Width 12.7 % (9.3-17.3); White Blood Count 11.2 T/CUMM (4-12)
[2020-09-21 06:39] LABS: Calcium 8.8 MG/DL (8.5-10.1); Osmolality,Calculated 278.4 MOS/KG (273-304)
[2020-09-21 06:41] LABS: Hypochromasia 1+; Microcytosis 1+; Platelet Estimate Adequate
[2020-09-21] MEDS: DONEPEZIL 10 MG TABLET PO SCH (09:30)
[2020-09-21] MEDS: ASPIRIN CHEW 81 MG TABLET PO SCH (09:30)
[2020-09-21] MEDS: PANTOPRAZOLE 40 MG TABLET PO SCH (09:31)
[2020-09-21] MEDS: amLODIPine 5 MG TABLET PO SCH (09:31)
[2020-09-21] MEDS: POLYETHYLENE GLYCOL POWDER 17 GM PACK PO SCH (09:31)
[2020-09-21] MEDS: SERTRALINE 100 MG TABLET PO SCH (09:31)
[2020-09-21] MEDS: POTASSIUM CHLORIDE RIDER 10 MEQ in PREMIX 1 EACH IV PRN ×4 (09:32→14:00)
[2020-09-21] MEDS: PANTOPRAZOLE 40 MG VIAL IV SCH (16:53)
[2020-09-21] MEDS: INSULIN GLARGINE 100 UNIT/ML SUBCUT SCH (21:51)
[2020-09-21] MEDS: ENOXAPARIN 40 MG/0.4 ML SYRINGE SUBCUT SCH (21:52)
[2020-09-21] MEDS: ATORVASTATIN 80 MG TABLET PO SCH (21:52)
[2020-09-22] MEDS: PHENYTOIN 100 MG/2 ML VIAL IV SCH ×4 (00:58→18:21)
[2020-09-22] MEDS: INSULIN LISPRO 100 UNIT/ML SUBCUT SCH ×4 (00:59→17:47)
[2020-09-22] MEDS: SODIUM CHLORIDE 0.45% 1,000 ML IV SCH ×2 (03:21→21:19)
[2020-09-22] MEDS: ALBUTEROL/IPRATROPIUM 3 ML NEB RESP TX SCH ×6 (03:28→23:53)
[2020-09-22 06:35] LABS: Basophils % 0.3 % (0.0-0.8); Eosinophils # 0.1 10*3/uL (0.0-0.87); Eosinophils % 0.7 % (0.00-10.9); Hematocrit 29.3 VOL% (42.0-52.0); Hemoglobin 9.6 GM/DL (14.0-18.0); Immature Granulocytes Absolute 0.12 #; Lymphocytes # 1.6 10*3/uL (1.4-4.0); Lymphocytes % 13.1 % (21.2-54.2); Mean Corpuscular HGB Conc 32.8 GM/DL (32-36); Mean Corpuscular Volume 89.9 FL (87-102); Mean Platelet Volume 9.7 FL (9.6-12.0); Monocytes % 5.1 % (1.7-12.7); Neutrophils % 79.8 % (38.7-73.9); Platelet Count 329 T/CUMM (130-400); Red Blood Count 3.26 MC/CUMM (3.8-5.5); Red Cell Distribution Width 12.6 % (9.3-17.3); White Blood Count 12.1 T/CUMM (4-12)
[2020-09-22 06:47] LABS: INR 1.1; PT Patient Result 11.3 SECS (9.8-11.9)
[2020-09-22 06:55] LABS: Albumin 2.2 G/DL (3.4-5.0); Bilirubin,Total 0.7 MG/DL (0.2-1.0); Calcium 8.6 MG/DL (8.5-10.1); Osmolality,Calculated 275.5 MOS/KG (273-304); Osmolality,Calculated 277.4 MOS/KG (273-304); Total Protein 7.7 G/DL (6.4-8.3)
[2020-09-22 07:02] LABS: Lymphocytes 10 % (20-55); Platelet Estimate Adequate; Segmented Neutrophils 87 % (50-85); Total Cells Counted 100
[2020-09-22 07:03] LABS: Hypochromasia 1+; Microcytosis 1+; Ovalocytes Slight
[2020-09-22] MEDS: ASPIRIN CHEW 81 MG TABLET PO SCH (09:35)
[2020-09-22] MEDS: amLODIPine 5 MG TABLET PO SCH (09:35)
[2020-09-22] MEDS: POLYETHYLENE GLYCOL POWDER 17 GM PACK PO SCH (09:35)
[2020-09-22] MEDS: DONEPEZIL 10 MG TABLET PO SCH (09:35)
[2020-09-22] MEDS: SERTRALINE 100 MG TABLET PO SCH (09:36)
[2020-09-22] MEDS: PANTOPRAZOLE 40 MG VIAL IV SCH (09:42)
[2020-09-22] MEDS: ATORVASTATIN 80 MG TABLET PO SCH (21:23)
[2020-09-22] MEDS: INSULIN GLARGINE 100 UNIT/ML SUBCUT SCH (21:23)
[2020-09-22] MEDS: ENOXAPARIN 40 MG/0.4 ML SYRINGE SUBCUT SCH (21:24)
[2020-09-23] MEDS: PHENYTOIN 100 MG/2 ML VIAL IV SCH ×4 (01:02→18:59)
[2020-09-23] MEDS: INSULIN LISPRO 100 UNIT/ML SUBCUT SCH ×4 (03:56→18:00)
[2020-09-23] MEDS: ALBUTEROL/IPRATROPIUM 3 ML NEB RESP TX SCH ×6 (03:57→23:33)
[2020-09-23] MEDS: SODIUM CHLORIDE 0.45% 1,000 ML IV SCH ×5 (06:15→22:45)
[2020-09-23 06:41] LABS: Basophils % 0.3 % (0.0-0.8); Eosinophils # 0.1 10*3/uL (0.0-0.87); Eosinophils % 1.2 % (0.00-10.9); Hematocrit 31.8 VOL% (42.0-52.0); Hemoglobin 10.3 GM/DL (14.0-18.0); Immature Granulocytes % 0.9 %; Immature Granulocytes Absolute 0.08 #; Lymphocytes # 1.4 10*3/uL (1.4-4.0); Mean Corpuscular HGB Conc 32.4 GM/DL (32-36); Mean Corpuscular Volume 89.8 FL (87-102); Mean Platelet Volume 9.6 FL (9.6-12.0); Neutrophils % 76.6 % (38.7-73.9); Platelet Count 290 T/CUMM (130-400); Red Blood Count 3.54 MC/CUMM (3.8-5.5); Red Cell Distribution Width 12.6 % (9.3-17.3); White Blood Count 9.4 T/CUMM (4-12)
[2020-09-23 06:58] LABS: Calcium 8.7 MG/DL (8.5-10.1); Osmolality,Calculated 274.5 MOS/KG (273-304)
[2020-09-23 07:06] LABS: Hypochromasia 1+
[2020-09-23 07:07] LABS: Microcytosis 1+; Platelet Estimate Normal
[2020-09-23] MEDS: ASPIRIN CHEW 81 MG TABLET PO SCH (08:10)
[2020-09-23] MEDS: amLODIPine 5 MG TABLET PO SCH (08:10)
[2020-09-23] MEDS: POLYETHYLENE GLYCOL POWDER 17 GM PACK PO SCH (08:10)
[2020-09-23] MEDS: DONEPEZIL 10 MG TABLET PO SCH (08:10)
[2020-09-23] MEDS: SERTRALINE 100 MG TABLET PO SCH (08:10)
[2020-09-23] MEDS: PANTOPRAZOLE 40 MG VIAL IV SCH (10:40)
[2020-09-23] MEDS: ATORVASTATIN 80 MG TABLET PO SCH (20:52)
[2020-09-23] MEDS: INSULIN GLARGINE 100 UNIT/ML SUBCUT SCH (20:52)
[2020-09-24] MEDS: PHENYTOIN 100 MG/2 ML VIAL IV SCH ×3 (00:52→14:07)
[2020-09-24] MEDS: INSULIN LISPRO 100 UNIT/ML SUBCUT SCH ×4 (00:54→19:20)
[2020-09-24] MEDS: ALBUTEROL/IPRATROPIUM 3 ML NEB RESP TX SCH ×6 (03:27→23:20)
[2020-09-24] MEDS ORDERED: ceFAZolin 1,000 MG in SYRINGE 1 EACH IV ONE (08:19)
[2020-09-24 09:21] LABS: INR 1.1; PT Patient Result 11.4 SECS (9.8-11.9)
[2020-09-24] MEDS: LACTATED RINGERS 1,000 ML IV SCH (10:11)
[2020-09-24] MEDS ORDERED: propofoL 200 MG/20 ML VIAL IV ONE ×2 (12:15→12:39)
[2020-09-24] MEDS ORDERED: LIDOCAINE 2% 5 ML VIAL ONE (12:15)
[2020-09-24] MEDS: PANTOPRAZOLE 40 MG VIAL IV SCH (14:07)
[2020-09-24] MEDS: SODIUM CHLORIDE 0.45% 1,000 ML IV SCH ×3 (14:14→23:40)
[2020-09-24] MEDS: DONEPEZIL 10 MG TABLET PO SCH (16:46)
[2020-09-24] MEDS: amLODIPine 5 MG TABLET PO SCH (16:46)
[2020-09-24] MEDS: ASPIRIN CHEW 81 MG TABLET PO SCH (16:46)
[2020-09-24] MEDS: POLYETHYLENE GLYCOL POWDER 17 GM PACK PO SCH (16:46)
[2020-09-24] MEDS: SERTRALINE 100 MG TABLET PO SCH (16:47)
[2020-09-24] MEDS: PHENYTOIN ER 100 MG CAPSULE PO SCH (20:54)
[2020-09-24] MEDS: ATORVASTATIN 80 MG TABLET PO SCH (20:54)
[2020-09-24] MEDS: INSULIN GLARGINE 100 UNIT/ML SUBCUT SCH (20:54)
[2020-09-24] MEDS: levETIRAcetam 500 MG TABLET PO SCH (20:54)
[2020-09-25] MEDS: INSULIN LISPRO 100 UNIT/ML SUBCUT SCH ×4 (00:31→19:05)
[2020-09-25] MEDS: ALBUTEROL/IPRATROPIUM 3 ML NEB RESP TX SCH ×5 (03:00→19:26)
[2020-09-25 05:50] LABS: Basophils % 0.2 % (0.0-0.8); Eosinophils # 0.1 10*3/uL (0.0-0.87); Eosinophils % 0.5 % (0.00-10.9); Hematocrit 28.7 VOL% (42.0-52.0); Hemoglobin 9.3 GM/DL (14.0-18.0); Immature Granulocytes % 0.3 %; Immature Granulocytes Absolute 0.04 #; Lymphocytes # 1.4 10*3/uL (1.4-4.0); Lymphocytes % 11.4 % (21.2-54.2); Mean Corpuscular HGB Conc 32.4 GM/DL (32-36); Mean Corpuscular Volume 89.4 FL (87-102); Mean Platelet Volume 9.2 FL (9.6-12.0); Monocytes % 4.2 % (1.7-12.7); Neutrophils % 83.4 % (38.7-73.9); Platelet Count 288 T/CUMM (130-400); Red Blood Count 3.21 MC/CUMM (3.8-5.5); Red Cell Distribution Width 12.7 % (9.3-17.3); White Blood Count 11.9 T/CUMM (4-12)
[2020-09-25 06:10] LABS: Hypochromasia 1+; Microcytosis 1+; Platelet Estimate Adequate
[2020-09-25 06:26] LABS: Calcium 8.4 MG/DL (8.5-10.1); Osmolality,Calculated 278.3 MOS/KG (273-304)
[2020-09-25] MEDS: PANTOPRAZOLE 40 MG VIAL IV SCH (09:28)
[2020-09-25] MEDS: POTASSIUM CHLORIDE RIDER 10 MEQ in PREMIX 1 EACH IV PRN ×3 (09:28→12:55)
[2020-09-25] MEDS: amLODIPine 5 MG TABLET PO SCH (09:29)
[2020-09-25] MEDS: POLYETHYLENE GLYCOL POWDER 17 GM PACK PO SCH (09:30)
[2020-09-25] MEDS: SERTRALINE 100 MG TABLET PO SCH (09:30)
[2020-09-25] MEDS: levETIRAcetam 500 MG TABLET PO SCH ×2 (09:30→22:36)
[2020-09-25] MEDS: DONEPEZIL 10 MG TABLET PO SCH (09:30)
[2020-09-25] MEDS: PHENYTOIN ER 100 MG CAPSULE PO SCH ×2 (09:30→22:36)
[2020-09-25] MEDS: ASPIRIN CHEW 81 MG TABLET PO SCH (09:50)
[2020-09-25] MEDS: SODIUM CHLORIDE 0.45% 1,000 ML IV SCH (11:01)
[2020-09-25] MEDS: LACTATED RINGERS 1,000 ML IV SCH (15:31)
[2020-09-25] MEDS: INSULIN GLARGINE 100 UNIT/ML SUBCUT SCH (22:34)
[2020-09-25] MEDS: ATORVASTATIN 80 MG TABLET PO SCH (22:36)
[2020-09-26] MEDS: ALBUTEROL/IPRATROPIUM 3 ML NEB RESP TX SCH ×4 (00:05→10:57)
[2020-09-26] MEDS: INSULIN LISPRO 100 UNIT/ML SUBCUT SCH ×2 (00:44→05:58)
[2020-09-26 06:23] LABS: Basophils % 0.3 % (0.0-0.8); Eosinophils # 0.1 10*3/uL (0.0-0.87); Eosinophils % 0.5 % (0.00-10.9); Hematocrit 30.9 VOL% (42.0-52.0); Hemoglobin 10.1 GM/DL (14.0-18.0); Immature Granulocytes % 0.5 %; Immature Granulocytes Absolute 0.05 #; Lymphocytes # 1.3 10*3/uL (1.4-4.0); Mean Corpuscular HGB Conc 32.7 GM/DL (32-36); Mean Corpuscular Volume 89.6 FL (87-102); Mean Platelet Volume 9.5 FL (9.6-12.0); Monocytes % 6.4 % (1.7-12.7); Neutrophils % 80.3 % (38.7-73.9); Platelet Count 295 T/CUMM (130-400); Red Blood Count 3.45 MC/CUMM (3.8-5.5); Red Cell Distribution Width 12.9 % (9.3-17.3); White Blood Count 10.9 T/CUMM (4-12)
[2020-09-26 06:47] LABS: Calcium 8.5 MG/DL (8.5-10.1); Osmolality,Calculated 277.5 MOS/KG (273-304)
[2020-09-26] MEDS: ASPIRIN CHEW 81 MG TABLET PO SCH (09:38)
[2020-09-26] MEDS: POLYETHYLENE GLYCOL POWDER 17 GM PACK PO SCH (09:38)
[2020-09-26] MEDS: PHENYTOIN ER 100 MG CAPSULE PO SCH (09:38)
[2020-09-26] MEDS: amLODIPine 5 MG TABLET PO SCH (09:39)
[2020-09-26] MEDS: levETIRAcetam 500 MG TABLET PO SCH (09:39)
[2020-09-26] MEDS: SERTRALINE 100 MG TABLET PO SCH (09:40)
[2020-09-26] MEDS: DONEPEZIL 10 MG TABLET PO SCH (09:54)
[2020-09-26] MEDS: PANTOPRAZOLE 40 MG VIAL IV SCH (09:55)
[2020-09-26 11:28] VITALS: BP 132/70
[2020-09-26] MEDS: ENOXAPARIN 40 MG/0.4 ML SYRINGE SUBCUT SCH (12:10)
[2020-09-26] MEDS: LACTATED RINGERS 1,000 ML IV SCH (12:11)
== END 2020-09-26 16:32 | DRG 100 ==
LOC: EDBD → EDUNIT# → N.EDINP 07:15 → N.ED 07:15 → SUATTDRO 10:39 → N.3E 12:03 → SUATTDRO 09-09 10:19
PROVIDERS: ADMIT Emergency Medicine; ATTEND Internal Medicine
PROC: EGDWPEG (ICD-10-PCS; 2020-09-24 11:35)

== ENCOUNTER 2020-12-26 09:10 | Inpatient (IN) ==
[2020-12-26 10:44] LABS: Basophils % 0.1 % (0.0-0.8); Hematocrit 38.1 VOL% (42.0-52.0); Hemoglobin 12.5 GM/DL (14.0-18.0); Immature Granulocytes % 0.3 %; Immature Granulocytes Absolute 0.05 #; Lymphocytes % 6.3 % (21.2-54.2); Mean Corpuscular HGB Conc 32.8 GM/DL (32-36); Mean Platelet Volume 10.4 FL (9.6-12.0); Monocytes % 3.6 % (1.7-12.7); Neutrophils % 89.7 % (38.7-73.9); Platelet Count 199 T/CUMM (130-400); Red Blood Count 4.28 MC/CUMM (3.8-5.5); Red Cell Distribution Width 13.1 % (9.3-17.3); White Blood Count 15.2 T/CUMM (4-12)
[2020-12-26 11:05] LABS: Alanine Aminotransferase 26 U/L (16-61); Albumin 3.2 G/DL (3.4-5.0); Alkaline Phosphatase 163 U/L (45-117); Aspartate Amino Transferase 22 U/L (0-37); Bilirubin,Total < 0.39 MG/DL (0.2-1.0); Blood Urea Nitrogen 14 MG/DL (7-18); Calcium 8.8 MG/DL (8.5-10.1); Carbon Dioxide 29 MMOL/L (21-32); Estimated Glom Filtration Rate 129 ML/MIN; Glucose 92 MG/DL (74-106); Osmolality,Calculated 281.3 MOS/KG (273-304); Potassium 3.6 MMOL/L (3.5-5.1); Sodium 141 MMOL/L (136-145); Total Protein 8.6 G/DL (5.0-7.5)
[2020-12-26 11:15] LABS: Bacteria,Urine Occasional /HPF (Few); Bilirubin,Urine Negative (Negative); Blood, Urine Small mg/dL (Negative); Glucose,Urine (UA) Negative (Negative); Ketones,Urine Negative (Negative); Mucus,Urine Few /LPF (Occasional); Nitrite,Urine Negative (Negative); Protein,Urine 100 MG/DL; RBC,Urine 8 /HPF (0-4); Squamous Epithelial Cell,Urine Occasional /HPF (0-10); Urine Appearance CLEAR (Clear); Urine Color Yellow (Yellow); Urine Urobilinogen < 2.0 EU/DL (0.2-1.0); WBC,Urine <1 /HPF (0-6)
[2020-12-26] MEDS ORDERED: cefTRIAXone 1,000 MG in SODIUM CHLORIDE 0.9% 100 ML IV STA (11:21)
[2020-12-26] MEDS ORDERED: AZITHROMYCIN INJ 500 MG in SODIUM CHLORIDE 0.9% 250 ML IV STA (11:21)
[2020-12-26] MEDS ORDERED: DEXTROSE 50% 25 GM/50 ML VIAL IV PRN ×2 (12:22→13:40)
[2020-12-26] MEDS ORDERED: GLUCAGON 1 MG VIAL IM PRN ×2 (12:22→13:40)
[2020-12-26] MEDS ORDERED: ONDANSETRON 4 MG/2 ML VIAL IV PRN (13:40)
[2020-12-26] MEDS ORDERED: ENOXAPARIN 30 MG/0.3 ML SYRINGE SUBCUT SCH (14:00)
[2020-12-26] MEDS: CEFEPIME 1,000 MG in SODIUM CHLORIDE 0.9% 100 ML IV SCH ×2 (17:39→21:46)
[2020-12-26] MEDS: INSULIN LISPRO 100 UNIT/ML SUBCUT SCH (17:40)
[2020-12-26] MEDS ORDERED: hydrALAZINE 20 MG/1 ML VIAL IV PRN (17:45)
[2020-12-26] MEDS: ALBUTEROL/IPRATROPIUM 3 ML NEB RESP TX SCH (19:23)
[2020-12-26] MEDS: PHENYTOIN ER 100 MG CAPSULE PO SCH (21:45)
[2020-12-26] MEDS: ACETAMINOPHEN 325 MG TABLET PEG PRN (21:45)
[2020-12-26] MEDS: ATORVASTATIN 80 MG TABLET PEG SCH (21:45)
[2020-12-26] MEDS: levETIRAcetam 500 MG TABLET PO SCH (21:45)
[2020-12-27] MEDS: INSULIN LISPRO 100 UNIT/ML SUBCUT SCH ×4 (00:15→17:22)
[2020-12-27] MEDS: ALBUTEROL/IPRATROPIUM 3 ML NEB RESP TX SCH ×4 (00:22→19:02)
[2020-12-27] MEDS: ACETAMINOPHEN 325 MG TABLET PEG PRN (01:46)
[2020-12-27] MEDS: CEFEPIME 1,000 MG in SODIUM CHLORIDE 0.9% 100 ML IV SCH ×4 (04:18→21:33)
[2020-12-27 05:30] LABS: Basophils % 0.2 % (0.0-0.8); Hematocrit 33.8 VOL% (42.0-52.0); Hemoglobin 11.1 GM/DL (14.0-18.0); Immature Granulocytes % 0.4 %; Immature Granulocytes Absolute 0.05 #; Lymphocytes # 1.7 10*3/uL (1.4-4.0); Lymphocytes % 13.2 % (21.2-54.2); Mean Corpuscular HGB Conc 32.8 GM/DL (32-36); Mean Corpuscular Volume 88.5 FL (87-102); Mean Platelet Volume 10.6 FL (9.6-12.0); Monocytes % 6.1 % (1.7-12.7); Neutrophils % 80.1 % (38.7-73.9); Platelet Count 169 T/CUMM (130-400); Red Blood Count 3.82 MC/CUMM (3.8-5.5); Red Cell Distribution Width 13.5 % (9.3-17.3)
[2020-12-27 05:45] LABS: Calcium 8.6 MG/DL (8.5-10.1); Osmolality,Calculated 279.5 MOS/KG (273-304); Potassium 3.9 MMOL/L (3.5-5.1)
[2020-12-27] MEDS: POLYETHYLENE GLYCOL POWDER 17 GM PACK PEG SCH (08:30)
[2020-12-27] MEDS: DONEPEZIL 10 MG TABLET PEG SCH (08:30)
[2020-12-27] MEDS: PHENYTOIN ER 100 MG CAPSULE PO SCH ×2 (08:30→21:34)
[2020-12-27] MEDS: MULTIVITAMIN (CENTRUM) TABLET PEG SCH (08:30)
[2020-12-27] MEDS: amLODIPine 5 MG TABLET PEG SCH (08:30)
[2020-12-27] MEDS: levETIRAcetam 500 MG TABLET PO SCH ×2 (08:30→21:34)
[2020-12-27] MEDS: ASPIRIN CHEW 81 MG TABLET PO SCH (08:31)
[2020-12-27] MEDS: SERTRALINE 100 MG TABLET PEG SCH (08:31)
[2020-12-27] MEDS: PANTOPRAZOLE 40 MG TABLET PO SCH (08:36)
[2020-12-27] MEDS: ATORVASTATIN 80 MG TABLET PEG SCH (21:34)
[2020-12-27] MEDS: ENOXAPARIN 40 MG/0.4 ML SYRINGE SUBCUT SCH (21:34)
[2020-12-28] MEDS: ALBUTEROL/IPRATROPIUM 3 ML NEB RESP TX SCH ×4 (00:47→19:17)
[2020-12-28] MEDS: INSULIN LISPRO 100 UNIT/ML SUBCUT SCH ×4 (00:57→18:06)
[2020-12-28] MEDS: CEFEPIME 1,000 MG in SODIUM CHLORIDE 0.9% 100 ML IV SCH ×5 (04:09→21:34)
[2020-12-28 06:00] LABS: Basophils % 0.2 % (0.0-0.8); Eosinophils % 0.2 % (0.00-10.9); Hematocrit 32.3 VOL% (42.0-52.0); Hemoglobin 10.3 GM/DL (14.0-18.0); Immature Granulocytes % 0.5 %; Immature Granulocytes Absolute 0.05 #; Lymphocytes # 1.2 10*3/uL (1.4-4.0); Lymphocytes % 11.4 % (21.2-54.2); Mean Corpuscular HGB Conc 31.9 GM/DL (32-36); Mean Corpuscular Volume 91.5 FL (87-102); Monocytes % 6.7 % (1.7-12.7); Platelet Count 162 T/CUMM (130-400); Red Blood Count 3.53 MC/CUMM (3.8-5.5); Red Cell Distribution Width 13.3 % (9.3-17.3); White Blood Count 10.2 T/CUMM (4-12)
[2020-12-28 06:22] LABS: Calcium 8.6 MG/DL (8.5-10.1); Osmolality,Calculated 286.5 MOS/KG (273-304); Potassium 4.1 MMOL/L (3.5-5.1)
[2020-12-28] MEDS: levETIRAcetam 500 MG TABLET PO SCH ×2 (08:32→21:39)
[2020-12-28] MEDS: SERTRALINE 100 MG TABLET PEG SCH (08:32)
[2020-12-28] MEDS: PANTOPRAZOLE 40 MG TABLET PO SCH (08:32)
[2020-12-28] MEDS: ASPIRIN CHEW 81 MG TABLET PO SCH (08:32)
[2020-12-28] MEDS: POLYETHYLENE GLYCOL POWDER 17 GM PACK PEG SCH (08:32)
[2020-12-28] MEDS: amLODIPine 5 MG TABLET PEG SCH (08:32)
[2020-12-28] MEDS: PHENYTOIN ER 100 MG CAPSULE PO SCH ×2 (08:32→21:38)
[2020-12-28] MEDS: MULTIVITAMIN (CENTRUM) TABLET PEG SCH (08:32)
[2020-12-28] MEDS: DONEPEZIL 10 MG TABLET PEG SCH (08:32)
[2020-12-28] MEDS: ENOXAPARIN 40 MG/0.4 ML SYRINGE SUBCUT SCH (21:39)
[2020-12-28] MEDS: ATORVASTATIN 80 MG TABLET PEG SCH (21:39)
[2020-12-29] MEDS: ALBUTEROL/IPRATROPIUM 3 ML NEB RESP TX SCH ×4 (00:10→19:19)
[2020-12-29] MEDS: INSULIN LISPRO 100 UNIT/ML SUBCUT SCH ×4 (00:15→17:39)
[2020-12-29] MEDS: CEFEPIME 1,000 MG in SODIUM CHLORIDE 0.9% 100 ML IV SCH ×4 (03:46→21:46)
[2020-12-29 05:34] LABS: Basophils % 0.2 % (0.0-0.8); Eosinophils # 0.1 10*3/uL (0.0-0.87); Hematocrit 32.4 VOL% (42.0-52.0); Hemoglobin 10.2 GM/DL (14.0-18.0); Immature Granulocytes % 0.3 %; Immature Granulocytes Absolute 0.03 #; Lymphocytes # 1.1 10*3/uL (1.4-4.0); Lymphocytes % 12.4 % (21.2-54.2); Mean Corpuscular HGB Conc 31.5 GM/DL (32-36); Mean Corpuscular Volume 91.8 FL (87-102); Mean Platelet Volume 10.7 FL (9.6-12.0); Monocytes % 6.1 % (1.7-12.7); Platelet Count 154 T/CUMM (130-400); Red Blood Count 3.53 MC/CUMM (3.8-5.5); Red Cell Distribution Width 13.2 % (9.3-17.3); White Blood Count 8.6 T/CUMM (4-12)
[2020-12-29 06:07] LABS: Calcium 8.5 MG/DL (8.5-10.1); Osmolality,Calculated 292.1 MOS/KG (273-304); Potassium 4.2 MMOL/L (3.5-5.1)
[2020-12-29] MEDS: ASPIRIN CHEW 81 MG TABLET PO SCH (09:06)
[2020-12-29] MEDS: POLYETHYLENE GLYCOL POWDER 17 GM PACK PEG SCH (09:06)
[2020-12-29] MEDS: MULTIVITAMIN (CENTRUM) TABLET PEG SCH (09:06)
[2020-12-29] MEDS: levETIRAcetam 500 MG TABLET PO SCH ×2 (09:06→21:49)
[2020-12-29] MEDS: amLODIPine 5 MG TABLET PEG SCH (09:07)
[2020-12-29] MEDS: PHENYTOIN ER 100 MG CAPSULE PO SCH ×2 (09:07→21:49)
[2020-12-29] MEDS: PANTOPRAZOLE 40 MG TABLET PO SCH (09:07)
[2020-12-29] MEDS: DONEPEZIL 10 MG TABLET PEG SCH (09:08)
[2020-12-29] MEDS: SERTRALINE 100 MG TABLET PEG SCH (09:08)
[2020-12-29] MEDS: ATORVASTATIN 80 MG TABLET PEG SCH (21:49)
[2020-12-29] MEDS: ENOXAPARIN 40 MG/0.4 ML SYRINGE SUBCUT SCH (21:50)
[2020-12-30] MEDS: INSULIN LISPRO 100 UNIT/ML SUBCUT SCH ×3 (01:23→15:41)
[2020-12-30] MEDS: ALBUTEROL/IPRATROPIUM 3 ML NEB RESP TX SCH ×3 (01:36→13:00)
[2020-12-30] MEDS: CEFEPIME 1,000 MG in SODIUM CHLORIDE 0.9% 100 ML IV SCH ×3 (02:53→15:47)
[2020-12-30 06:34] LABS: Basophils % 0.3 % (0.0-0.8); Eosinophils # 0.1 10*3/uL (0.0-0.87); Eosinophils % 1.7 % (0.00-10.9); Hematocrit 32.3 VOL% (42.0-52.0); Hemoglobin 10.4 GM/DL (14.0-18.0); Immature Granulocytes % 0.5 %; Immature Granulocytes Absolute 0.03 #; Lymphocytes % 14.4 % (21.2-54.2); Mean Corpuscular HGB Conc 32.2 GM/DL (32-36); Mean Platelet Volume 11.1 FL (9.6-12.0); Monocytes % 5.9 % (1.7-12.7); Neutrophils % 77.2 % (38.7-73.9); Platelet Count 164 T/CUMM (130-400); Red Blood Count 3.55 MC/CUMM (3.8-5.5); Red Cell Distribution Width 13.1 % (9.3-17.3); White Blood Count 6.7 T/CUMM (4-12)
[2020-12-30 06:50] LABS: Calcium 8.4 MG/DL (8.5-10.1); Osmolality,Calculated 288.4 MOS/KG (273-304); Potassium 4.5 MMOL/L (3.5-5.1)
[2020-12-30] MEDS: PHENYTOIN ER 100 MG CAPSULE PO SCH (09:07)
[2020-12-30] MEDS: ASPIRIN CHEW 81 MG TABLET PO SCH (09:07)
[2020-12-30] MEDS: levETIRAcetam 500 MG TABLET PO SCH (09:07)
[2020-12-30] MEDS: MULTIVITAMIN (CENTRUM) TABLET PEG SCH (09:07)
[2020-12-30] MEDS: DONEPEZIL 10 MG TABLET PEG SCH (09:08)
[2020-12-30] MEDS: PANTOPRAZOLE 40 MG TABLET PO SCH (09:08)
[2020-12-30] MEDS: POLYETHYLENE GLYCOL POWDER 17 GM PACK PEG SCH (09:08)
[2020-12-30] MEDS: amLODIPine 5 MG TABLET PEG SCH (09:08)
[2020-12-30] MEDS: SERTRALINE 100 MG TABLET PEG SCH (09:08)
[2020-12-30 15:27] VITALS: BP 147/91
== END 2020-12-30 16:31 | DRG 177 ==
LOC: EDBD → EDUNIT# → N.ED 09:10 → N.EDINP 09:10 → SUATTDRO 13:40 → N.5E 14:53
PROVIDERS: ADMIT Emergency Medicine; ATTEND Internal Medicine

== ENCOUNTER 2021-09-28 16:21 | Inpatient (IN) ==
[2021-09-28 17:38] LABS: Basophils # 0.1 10*3/uL (0.0-0.2); Basophils % 0.3 % (0.0-0.8); Eosinophils % 0.2 % (0.00-10.9); Hematocrit 41.9 VOL% (42.0-52.0); Hemoglobin 13.1 GM/DL (14.0-18.0); Immature Granulocytes % 0.5 %; Lymphocytes # 1.7 10*3/uL (1.4-4.0); Lymphocytes % 8.9 % (21.2-54.2); Mean Corpuscular HGB Conc 31.3 GM/DL (32-36); Mean Corpuscular Volume 95.4 FL (87-102); Mean Platelet Volume 11.4 FL (9.6-12.0); Monocytes % 6.2 % (1.7-12.7); NRBC # 0.02 10*3/uL; Neutrophils % 83.9 % (38.7-73.9); Platelet Count 216 T/CUMM (130-400); Red Blood Count 4.39 MC/CUMM (3.8-5.5); Red Cell Distribution Width 13.2 % (9.3-17.3); White Blood Count 19.3 T/CUMM (4-12)
[2021-09-28] MEDS ORDERED: PIPERACILLIN/TAZOBACTAM 3,375 MG in SODIUM CHLORIDE 0.9% 100 ML IV STA (17:48)
[2021-09-28 17:50] LABS: Alanine Aminotransferase 103 U/L (16-61); Albumin 3.2 G/DL (3.4-5.0); Alkaline Phosphatase 278 U/L (45-117); Aspartate Amino Transferase 79 U/L (0-37); Bilirubin,Total < 0.39 MG/DL (0.20-1.00); Blood Urea Nitrogen 29 MG/DL (7-18); Calcium 9.8 MG/DL (8.5-10.1); Carbon Dioxide 27 MMOL/L (21-32); Estimated Glom Filtration Rate 112 ML/MIN; Glucose 194 MG/DL (74-106); Osmolality,Calculated 289.4 MOS/KG (273-304); Potassium 4.2 MMOL/L (3.5-5.1); Sodium 140 MMOL/L (136-145); Total Protein 9.6 G/DL (6.4-8.2)
[2021-09-28 17:58] LABS: Allen Test Positive; Pt O2 Delivery Device BIPAP
[2021-09-28 18:12] LABS: ABG Base Excess 2.9 MMOL/L (-2.5-2.5); ABG HCO3 26.1 MMOL/L (20-26); ABG Oxygen Saturation 99.3 % (95-100); ABG PCO2 35.3 MM HG (35-48); ABG PH 7.486 (7.35-7.45); ABG PO2 265.7 MM HG (80-95); ABG TCO2 27.1 MMOL/L (23-27)
[2021-09-28] MEDS ORDERED: SODIUM CHLORIDE 0.9% 2,200 ML IV STA (18:13)
[2021-09-28] MEDS ORDERED: VANCOMYCIN INJ 1,000 MG in SODIUM CHLORIDE 0.9% 250 ML IV STA ×2 (18:31→18:32)
[2021-09-28] MEDS ORDERED: DEXTROSE 50% 25 GM/50 ML SYRINGE IV PRN (19:12)
[2021-09-28] MEDS ORDERED: ONDANSETRON 4 MG/2 ML VIAL IV PRN (19:12)
[2021-09-28] MEDS ORDERED: ACETAMINOPHEN 325 MG TABLET PO PRN (19:12)
[2021-09-28] MEDS ORDERED: GLUCAGON 1 MG VIAL IM PRN (19:12)
[2021-09-28] MEDS ORDERED: ALBUTEROL 2.5 MG/3 ML NEB RESP TX PRN (19:16)
[2021-09-28] MEDS ORDERED: ALBUTEROL/IPRATROPIUM 3 ML NEB RESP TX PRN (19:16)
[2021-09-28 19:45] LABS: ABG Base Excess 2.3 MMOL/L (-2.5-2.5); ABG HCO3 28.4 MMOL/L (20-26); ABG Oxygen Saturation 71.2 % (95-100); ABG PCO2 50.2 MM HG (35-48); ABG TCO2 29.9 MMOL/L (23-27)
[2021-09-28 19:50] LABS: ABG PO2 39.3 MM HG (80-95)
[2021-09-28] MEDS ORDERED: ROCURONIUM 100 MG/10 ML VIAL IV ONE (20:26)
[2021-09-28] MEDS ORDERED: ETOMIDATE 20 MG/10 ML VIAL IV ONE (20:26)
[2021-09-28] MEDS ORDERED: INSULIN REGULAR 100 UNIT/ML SUBCUT SCH (21:00)
[2021-09-28 21:50] LABS: ABG Base Excess 1.2 MMOL/L (-2.5-2.5); ABG HCO3 25.1 MMOL/L (20-26); ABG Oxygen Saturation 81.2 % (95-100); ABG PCO2 57.8 MM HG (35-48); ABG PH 7.306 (7.35-7.45); ABG TCO2 26.1 MMOL/L (23-27)
[2021-09-28 22:07] LABS: ABG Base Excess 3.2 MMOL/L (-2.5-2.5); ABG HCO3 27.3 MMOL/L (20-26); ABG Oxygen Saturation 99.9 % (95-100); ABG PCO2 45.6 MM HG (35-48); ABG PH 7.404 (7.35-7.45); ABG TCO2 25.3 MMOL/L (23-27)
[2021-09-28 23:19] LABS: PT Patient Result 11.1 SECS (10.5-12.0)
[2021-09-28] MEDS ORDERED: LACTATED RINGERS 1,000 ML IV ONE (23:21)
[2021-09-28] MEDS: SODIUM CHLORIDE 0.9% 1,000 ML IV SCH (23:22)
[2021-09-28] MEDS: guaiFENesin/DM ER 600-30 MG TABLET PO SCH (23:23)
[2021-09-28] MEDS: ENOXAPARIN 40 MG/0.4 ML SYRINGE SUBCUT SCH (23:40)
[2021-09-29] MEDS: PHENYTOIN ER 100 MG CAPSULE PO SCH ×2 (00:01→09:45)
[2021-09-29] MEDS: ATORVASTATIN 80 MG TABLET PEG SCH ×2 (00:11→20:50)
[2021-09-29] MEDS: levETIRAcetam 500 MG TABLET PO SCH ×2 (00:11→09:45)
[2021-09-29] MEDS: LACTATED RINGERS 1,000 ML IV SCH ×2 (00:12→10:30)
[2021-09-29] MEDS: ALBUTEROL 2.5 MG/3 ML NEB RESP TX SCH ×4 (00:36→19:53)
[2021-09-29] MEDS ORDERED: MIDAZOLAM 10 MG/2 ML VIAL ONE (01:40)
[2021-09-29 04:28] LABS: ABG Base Excess 3.3 MMOL/L (-2.5-2.5); ABG HCO3 27.4 MMOL/L (20-26); ABG PCO2 39.9 MM HG (35-48); ABG PH 7.447 (7.35-7.45); ABG TCO2 24.5 MMOL/L (23-27)
[2021-09-29 05:40] LABS: Basophils % 0.2 % (0.0-0.8); Hematocrit 31.8 VOL% (42.0-52.0); Hemoglobin 10.2 GM/DL (14.0-18.0); Immature Granulocytes % 0.4 %; Immature Granulocytes Absolute 0.05 #; Lymphocytes # 1.3 10*3/uL (1.4-4.0); Lymphocytes % 9.7 % (21.2-54.2); Mean Corpuscular HGB Conc 32.1 GM/DL (32-36); Mean Corpuscular Volume 93.8 FL (87-102); Mean Platelet Volume 10.6 FL (9.6-12.0); Monocytes % 8.4 % (1.7-12.7); NRBC # 0.02 10*3/uL; Neutrophils % 81.3 % (38.7-73.9); Platelet Count 182 T/CUMM (130-400); Red Blood Count 3.39 MC/CUMM (3.8-5.5); Red Cell Distribution Width 13.5 % (9.3-17.3); White Blood Count 13.1 T/CUMM (4-12)
[2021-09-29 05:59] LABS: Band Neutrophils 5 % (0-10); Hypochromasia 1+; Lymphocytes 10 % (20-55); Microcytosis 1+; Platelet Estimate Adequate; Segmented Neutrophils 79 % (50-85); Total Cells Counted 100
[2021-09-29 06:21] LABS: Albumin 2.3 G/DL (3.4-5.0); Bilirubin,Total 0.4 MG/DL (0.20-1.00); Calcium 8.8 MG/DL (8.5-10.1); Osmolality,Calculated 290.3 MOS/KG (273-304); Potassium 4.2 MMOL/L (3.5-5.1); Risk Ratio 2.38; Total Protein 7.2 G/DL (6.4-8.2); VLDL Cholesterol 12.2 MG/DL
[2021-09-29] MEDS: SODIUM CHLORIDE 0.9% 1,000 ML IV SCH ×3 (07:09→20:09)
[2021-09-29] MEDS: PIPERACILLIN/TAZOBACTAM 3,375 MG in SODIUM CHLORIDE 0.9% 100 ML IV SCH ×2 (07:09→15:26)
[2021-09-29] MEDS: INSULIN REGULAR 100 UNIT/ML SUBCUT SCH ×3 (07:55→17:36)
[2021-09-29] MEDS: guaiFENesin/DM ER 600-30 MG TABLET PO SCH ×2 (09:45→20:50)
[2021-09-29] MEDS: PANTOPRAZOLE 40 MG VIAL IV SCH (09:46)
[2021-09-29] MEDS: methylPREDNISolone SOD SUC 40 MG/1 ML VIAL IV SCH ×2 (09:47→18:10)
[2021-09-29] MEDS ORDERED: MIDAZOLAM 100 MG in SODIUM CHLORIDE 0.9% 80 ML IV PRN (11:25)
[2021-09-29 12:37] LABS: Bilirubin,Urine Negative (Negative); Blood, Urine Large mg/dL (Negative); Glucose,Urine (UA) Negative (Negative); Ketones,Urine Negative (Negative); Nitrite,Urine Negative (Negative); Protein,Urine 100 MG/DL; RBC,Urine 240 /HPF (0-4); Squamous Epithelial Cell,Urine Occasional /HPF (0-10); Urine Appearance CLOUDY (Clear); Urine Color Amber (Yellow); Urine Specific Gravity 1.055 (1.001-1.035)
[2021-09-29] MEDS: VANCOMYCIN INJ 1,000 MG in SODIUM CHLORIDE 0.9% 250 ML IV SCH (13:22)
[2021-09-29] MEDS ORDERED: PHENYTOIN INJ 500 MG in SODIUM CHLORIDE 0.9% 100 ML IV ONE (17:01)
[2021-09-29] MEDS: PHENYTOIN 100 MG/2 ML VIAL IV SCH (20:50)
[2021-09-29] MEDS: ENOXAPARIN 40 MG/0.4 ML SYRINGE SUBCUT SCH (20:50)
[2021-09-30] MEDS: PIPERACILLIN/TAZOBACTAM 3,375 MG in SODIUM CHLORIDE 0.9% 100 ML IV SCH ×4 (00:21→23:06)
[2021-09-30] MEDS: SODIUM CHLORIDE 0.9% 1,000 ML IV SCH ×6 (00:26→20:56)
[2021-09-30] MEDS: INSULIN REGULAR 100 UNIT/ML SUBCUT SCH ×5 (00:36→23:17)
[2021-09-30] MEDS: ALBUTEROL 2.5 MG/3 ML NEB RESP TX SCH ×4 (01:00→19:00)
[2021-09-30] MEDS: VANCOMYCIN INJ 1,000 MG in SODIUM CHLORIDE 0.9% 250 ML IV SCH ×2 (02:31→14:55)
[2021-09-30] MEDS: methylPREDNISolone SOD SUC 40 MG/1 ML VIAL IV SCH ×3 (02:34→16:36)
[2021-09-30 03:01] LABS: ABG Base Excess 0.9 MMOL/L (-2.5-2.5); ABG HCO3 25.2 MMOL/L (20-26); ABG Oxygen Saturation 99.5 % (95-100); ABG PCO2 33.9 MM HG (35-48); ABG PH 7.463 (7.35-7.45); ABG TCO2 22.1 MMOL/L (23-27)
[2021-09-30 05:19] LABS: Basophils % 0.1 % (0.0-0.8); Hematocrit 29.3 VOL% (42.0-52.0); Hemoglobin 9.4 GM/DL (14.0-18.0); Immature Granulocytes % 0.6 %; Immature Granulocytes Absolute 0.11 #; Lymphocytes % 5.5 % (21.2-54.2); Mean Corpuscular HGB Conc 32.1 GM/DL (32-36); Mean Corpuscular Volume 93.3 FL (87-102); Mean Platelet Volume 11.2 FL (9.6-12.0); Monocytes % 4.3 % (1.7-12.7); Neutrophils % 89.5 % (38.7-73.9); Platelet Count 167 T/CUMM (130-400); Red Blood Count 3.14 MC/CUMM (3.8-5.5); Red Cell Distribution Width 13.4 % (9.3-17.3); White Blood Count 17.3 T/CUMM (4-12)
[2021-09-30 05:32] LABS: Calcium 8.3 MG/DL (8.5-10.1); Osmolality,Calculated 303.7 MOS/KG (273-304); Potassium 3.8 MMOL/L (3.5-5.1)
[2021-09-30 06:04] LABS: Band Neutrophils 4 % (0-10); Lymphocytes 6 % (20-55); Platelet Estimate Adequate; Segmented Neutrophils 86 % (50-85); Total Cells Counted 100
[2021-09-30 06:05] LABS: Hypochromasia 1+; Microcytosis 1+
[2021-09-30] MEDS: SERTRALINE 100 MG TABLET PEG SCH (09:56)
[2021-09-30] MEDS: ASPIRIN CHEW 81 MG TABLET PO SCH (09:56)
[2021-09-30] MEDS: MULTIVITAMIN (CENTRUM) TABLET PEG SCH (09:56)
[2021-09-30] MEDS: PANTOPRAZOLE 40 MG VIAL IV SCH (09:56)
[2021-09-30] MEDS: guaiFENesin/DM ER 600-30 MG TABLET PO SCH ×2 (09:57→20:14)
[2021-09-30] MEDS: DONEPEZIL 10 MG TABLET PEG SCH (09:57)
[2021-09-30] MEDS: POLYETHYLENE GLYCOL POWDER 17 GM PACK PEG SCH (10:03)
[2021-09-30] MEDS: PHENYTOIN 100 MG/2 ML VIAL IV SCH ×2 (10:05→20:15)
[2021-09-30] MEDS: MENTHOL/ZINC OXIDE OINT 71 GM JAR TOP SCH ×2 (11:33→20:15)
[2021-09-30] MEDS: ENOXAPARIN 40 MG/0.4 ML SYRINGE SUBCUT SCH (20:14)
[2021-09-30] MEDS: ATORVASTATIN 80 MG TABLET PEG SCH (20:14)
[2021-10-01] MEDS: ALBUTEROL 2.5 MG/3 ML NEB RESP TX SCH ×4 (01:00→19:50)
[2021-10-01] MEDS: methylPREDNISolone SOD SUC 40 MG/1 ML VIAL IV SCH ×3 (02:39→17:54)
[2021-10-01] MEDS: SODIUM CHLORIDE 0.9% 1,000 ML IV SCH ×3 (03:00→23:33)
[2021-10-01] MEDS: VANCOMYCIN INJ 1,000 MG in SODIUM CHLORIDE 0.9% 250 ML IV SCH ×2 (03:04→15:51)
[2021-10-01 03:22] LABS: ABG Base Excess 0.5 MMOL/L (-2.5-2.5); ABG HCO3 24.9 MMOL/L (20-26); ABG PCO2 36.6 MM HG (35-48); ABG PH 7.434 (7.35-7.45); ABG TCO2 22.2 MMOL/L (23-27)
[2021-10-01 04:53] LABS: Basophils % 0.1 % (0.0-0.8); Hematocrit 28.3 VOL% (42.0-52.0); Hemoglobin 9.1 GM/DL (14.0-18.0); Immature Granulocytes % 0.8 %; Immature Granulocytes Absolute 0.15 #; Lymphocytes # 0.7 10*3/uL (1.4-4.0); Lymphocytes % 3.3 % (21.2-54.2); Mean Corpuscular HGB Conc 32.2 GM/DL (32-36); Mean Platelet Volume 10.9 FL (9.6-12.0); Monocytes % 5.2 % (1.7-12.7); Neutrophils % 90.6 % (38.7-73.9); Platelet Count 171 T/CUMM (130-400); Red Blood Count 3.01 MC/CUMM (3.8-5.5); Red Cell Distribution Width 13.3 % (9.3-17.3); White Blood Count 19.6 T/CUMM (4-12)
[2021-10-01 05:32] LABS: Calcium 8.3 MG/DL (8.5-10.1); Osmolality,Calculated 297.6 MOS/KG (273-304); Potassium 3.1 MMOL/L (3.5-5.1)
[2021-10-01 05:35] LABS: Band Neutrophils 1 % (0-10); Hypochromasia 1+; Lymphocytes 2 % (20-55); Platelet Estimate Adequate; Segmented Neutrophils 95 % (50-85); Total Cells Counted 100
[2021-10-01 05:36] LABS: Microcytosis 1+
[2021-10-01] MEDS: INSULIN REGULAR 100 UNIT/ML SUBCUT SCH ×3 (05:44→17:54)
[2021-10-01] MEDS ORDERED: POTASSIUM BICARB EFFERVESCENT 20 MEQ TAB.EFF PO PRN (05:46)
[2021-10-01] MEDS: POTASSIUM BICARB EFFERVESCENT 20 MEQ TAB.EFF PO PRN ×4 (06:09→14:29)
[2021-10-01] MEDS: PIPERACILLIN/TAZOBACTAM 3,375 MG in SODIUM CHLORIDE 0.9% 100 ML IV SCH ×3 (06:09→22:33)
[2021-10-01] MEDS: guaiFENesin/DM ER 600-30 MG TABLET PO SCH ×2 (08:50→21:32)
[2021-10-01] MEDS: PANTOPRAZOLE 40 MG VIAL IV SCH (08:50)
[2021-10-01] MEDS: ASPIRIN CHEW 81 MG TABLET PO SCH (08:51)
[2021-10-01] MEDS: MULTIVITAMIN (CENTRUM) TABLET PEG SCH (08:51)
[2021-10-01] MEDS: PHENYTOIN 100 MG/2 ML VIAL IV SCH ×2 (08:51→21:31)
[2021-10-01] MEDS: SERTRALINE 100 MG TABLET PEG SCH (08:51)
[2021-10-01] MEDS: MENTHOL/ZINC OXIDE OINT 71 GM JAR TOP SCH ×2 (08:52→21:31)
[2021-10-01] MEDS: DONEPEZIL 10 MG TABLET PEG SCH (08:53)
[2021-10-01] MEDS: POLYETHYLENE GLYCOL POWDER 17 GM PACK PEG SCH (09:06)
[2021-10-01] MEDS ORDERED: PHENYTOIN INJ 500 MG in SODIUM CHLORIDE 0.9% 100 ML IV ONE (10:23)
[2021-10-01] MEDS: ATORVASTATIN 80 MG TABLET PEG SCH (21:31)
[2021-10-01] MEDS: ENOXAPARIN 40 MG/0.4 ML SYRINGE SUBCUT SCH (21:32)
[2021-10-02] MEDS: ALBUTEROL 2.5 MG/3 ML NEB RESP TX SCH ×4 (00:25→19:00)
[2021-10-02] MEDS: methylPREDNISolone SOD SUC 40 MG/1 ML VIAL IV SCH ×3 (01:58→21:00)
[2021-10-02] MEDS: VANCOMYCIN INJ 1,000 MG in SODIUM CHLORIDE 0.9% 250 ML IV SCH (02:02)
[2021-10-02] MEDS: INSULIN REGULAR 100 UNIT/ML SUBCUT SCH ×4 (02:06→20:59)
[2021-10-02 04:14] LABS: ABG Base Excess -2.6 MMOL/L (-2.5-2.5); ABG HCO3 21.3 MMOL/L (20-26); ABG Oxygen Saturation 96.3 % (95-100); ABG PCO2 33.7 MM HG (35-48); ABG PH 7.418 (7.35-7.45); ABG PO2 82.7 MM HG (80-95); ABG TCO2 22.3 MMOL/L (23-27); Allen Test Positive
[2021-10-02 04:48] LABS: Basophils % 0.1 % (0.0-0.8); Hematocrit 36.1 VOL% (42.0-52.0); Hemoglobin 11.3 GM/DL (14.0-18.0); Immature Granulocytes Absolute 0.25 #; Lymphocytes # 0.5 10*3/uL (1.4-4.0); Lymphocytes % 2.1 % (21.2-54.2); Mean Corpuscular HGB Conc 31.3 GM/DL (32-36); Monocytes % 3.4 % (1.7-12.7); Neutrophils % 93.4 % (38.7-73.9); Platelet Count 220 T/CUMM (130-400); Red Cell Distribution Width 13.4 % (9.3-17.3); White Blood Count 25.2 T/CUMM (4-12)
[2021-10-02 04:59] LABS: Calcium 7.7 MG/DL (8.5-10.1); Osmolality,Calculated 307.4 MOS/KG (273-304); Potassium 3.8 MMOL/L (3.5-5.1)
[2021-10-02 05:10] LABS: Band Neutrophils 1 % (0-10); Hypochromasia Slight; Lymphocytes 2 % (20-55); Microcytosis Slight; Nucleated Red Blood Cells 1 (0-5); Platelet Estimate Adequate; Segmented Neutrophils 94 % (50-85); Total Cells Counted 100
[2021-10-02] MEDS: SODIUM CHLORIDE 0.9% 1,000 ML IV SCH ×2 (05:31→19:51)
[2021-10-02] MEDS: PIPERACILLIN/TAZOBACTAM 3,375 MG in SODIUM CHLORIDE 0.9% 100 ML IV SCH ×2 (06:29→16:30)
[2021-10-02] MEDS: SERTRALINE 100 MG TABLET PEG SCH (08:14)
[2021-10-02] MEDS: MULTIVITAMIN (CENTRUM) TABLET PEG SCH (08:14)
[2021-10-02] MEDS: ASPIRIN CHEW 81 MG TABLET PO SCH (08:14)
[2021-10-02] MEDS: guaiFENesin/DM ER 600-30 MG TABLET PO SCH ×2 (08:14→21:00)
[2021-10-02] MEDS: DONEPEZIL 10 MG TABLET PEG SCH (08:14)
[2021-10-02] MEDS: PHENYTOIN 100 MG/2 ML VIAL IV SCH ×2 (08:15→20:59)
[2021-10-02] MEDS: PANTOPRAZOLE 40 MG VIAL IV SCH (08:17)
[2021-10-02] MEDS: MENTHOL/ZINC OXIDE OINT 71 GM JAR TOP SCH ×2 (08:17→21:02)
[2021-10-02] MEDS: POLYETHYLENE GLYCOL POWDER 17 GM PACK PEG SCH (08:18)
[2021-10-02] MEDS: VANCOMYCIN 50 MG/ML 60 ML/BOTTLE PO SCH ×2 (13:00→18:00)
[2021-10-02] MEDS ORDERED: SODIUM CHLORIDE 23.4% CONC INJ 38.5 MEQ in STERILE WATER INJ 1,000 ML IV SCH (16:00)
[2021-10-02] MEDS: ATORVASTATIN 80 MG TABLET PEG SCH (21:00)
[2021-10-02] MEDS: ENOXAPARIN 40 MG/0.4 ML SYRINGE SUBCUT SCH (21:00)
[2021-10-03] MEDS: PIPERACILLIN/TAZOBACTAM 3,375 MG in SODIUM CHLORIDE 0.9% 100 ML IV SCH ×4 (00:30→23:33)
[2021-10-03] MEDS: INSULIN REGULAR 100 UNIT/ML SUBCUT SCH ×5 (00:30→23:33)
[2021-10-03] MEDS: VANCOMYCIN 50 MG/ML 60 ML/BOTTLE PO SCH ×5 (00:31→23:35)
[2021-10-03] MEDS: ALBUTEROL 2.5 MG/3 ML NEB RESP TX SCH ×4 (00:36→19:00)
[2021-10-03] MEDS: methylPREDNISolone SOD SUC 40 MG/1 ML VIAL IV SCH ×3 (04:32→20:35)
[2021-10-03 04:43] LABS: Basophils % 0.1 % (0.0-0.8); Hematocrit 33.5 VOL% (42.0-52.0); Hemoglobin 10.7 GM/DL (14.0-18.0); Immature Granulocytes % 1.6 %; Immature Granulocytes Absolute 0.34 #; Lymphocytes # 1.1 10*3/uL (1.4-4.0); Lymphocytes % 5.2 % (21.2-54.2); Mean Corpuscular HGB Conc 31.9 GM/DL (32-36); Mean Corpuscular Volume 94.9 FL (87-102); Mean Platelet Volume 10.9 FL (9.6-12.0); Monocytes % 2.9 % (1.7-12.7); Neutrophils % 90.2 % (38.7-73.9); Platelet Count 200 T/CUMM (130-400); Red Blood Count 3.53 MC/CUMM (3.8-5.5); Red Cell Distribution Width 13.4 % (9.3-17.3); White Blood Count 21.2 T/CUMM (4-12)
[2021-10-03 05:03] LABS: Calcium 8.2 MG/DL (8.5-10.1); Osmolality,Calculated 294.8 MOS/KG (273-304); Potassium 3.6 MMOL/L (3.5-5.1)
[2021-10-03 05:26] LABS: Band Neutrophils 2 % (0-10); Lymphocytes 6 % (20-55); Platelet Estimate Normal; Segmented Neutrophils 89 % (50-85); Total Cells Counted 100
[2021-10-03] MEDS: PANTOPRAZOLE 40 MG VIAL IV SCH (10:24)
[2021-10-03] MEDS: SERTRALINE 100 MG TABLET PEG SCH (10:25)
[2021-10-03] MEDS: MULTIVITAMIN (CENTRUM) TABLET PEG SCH (10:25)
[2021-10-03] MEDS: ASPIRIN CHEW 81 MG TABLET PO SCH (10:25)
[2021-10-03] MEDS: PHENYTOIN 100 MG/2 ML VIAL IV SCH ×2 (10:25→20:54)
[2021-10-03] MEDS: guaiFENesin/DM ER 600-30 MG TABLET PO SCH ×2 (10:25→20:54)
[2021-10-03] MEDS: DONEPEZIL 10 MG TABLET PEG SCH (10:25)
[2021-10-03] MEDS: MENTHOL/ZINC OXIDE OINT 71 GM JAR TOP SCH ×2 (10:26→20:53)
[2021-10-03] MEDS: POLYETHYLENE GLYCOL POWDER 17 GM PACK PEG SCH (10:27)
[2021-10-03] MEDS ORDERED: DEXTROSE 50% 25 GM/50 ML VIAL IV PRN (14:34)
[2021-10-03] MEDS: FUROSEMIDE 40 MG/4 ML VIAL IV SCH ×2 (14:45→23:34)
[2021-10-03] MEDS: ATORVASTATIN 80 MG TABLET PEG SCH (20:54)
[2021-10-04] MEDS: ALBUTEROL 2.5 MG/3 ML NEB RESP TX SCH ×4 (01:00→19:00)
[2021-10-04] MEDS: methylPREDNISolone SOD SUC 40 MG/1 ML VIAL IV SCH ×2 (03:47→21:35)
[2021-10-04 04:04] LABS: Basophils % 0.1 % (0.0-0.8); Hematocrit 31.8 VOL% (42.0-52.0); Immature Granulocytes % 2.5 %; Immature Granulocytes Absolute 0.46 #; Lymphocytes # 1.4 10*3/uL (1.4-4.0); Lymphocytes % 7.8 % (21.2-54.2); Mean Corpuscular HGB Conc 31.4 GM/DL (32-36); Mean Corpuscular Volume 94.6 FL (87-102); Mean Platelet Volume 10.5 FL (9.6-12.0); Monocytes % 3.4 % (1.7-12.7); NRBC # 0.02 10*3/uL; Neutrophils % 86.2 % (38.7-73.9); Platelet Count 173 T/CUMM (130-400); Red Blood Count 3.36 MC/CUMM (3.8-5.5); Red Cell Distribution Width 13.3 % (9.3-17.3); White Blood Count 18.3 T/CUMM (4-12)
[2021-10-04 04:23] LABS: Potassium 3.8 MMOL/L (3.5-5.1)
[2021-10-04] MEDS: VANCOMYCIN 50 MG/ML 60 ML/BOTTLE PO SCH ×3 (06:22→17:33)
[2021-10-04] MEDS: INSULIN REGULAR 100 UNIT/ML SUBCUT SCH ×3 (06:22→17:33)
[2021-10-04] MEDS: PIPERACILLIN/TAZOBACTAM 3,375 MG in SODIUM CHLORIDE 0.9% 100 ML IV SCH ×3 (06:22→22:04)
[2021-10-04] MEDS: MENTHOL/ZINC OXIDE OINT 71 GM JAR TOP SCH ×2 (08:43→20:48)
[2021-10-04] MEDS: guaiFENesin/DM ER 600-30 MG TABLET PO SCH ×3 (08:43→21:29)
[2021-10-04] MEDS: ASPIRIN CHEW 81 MG TABLET PO SCH (08:43)
[2021-10-04] MEDS: DONEPEZIL 10 MG TABLET PEG SCH (08:43)
[2021-10-04] MEDS: SERTRALINE 100 MG TABLET PEG SCH (08:43)
[2021-10-04] MEDS: MULTIVITAMIN (CENTRUM) TABLET PEG SCH (08:43)
[2021-10-04] MEDS: PHENYTOIN 100 MG/2 ML VIAL IV SCH ×2 (08:44→20:49)
[2021-10-04] MEDS: PANTOPRAZOLE 40 MG VIAL IV SCH (08:45)
[2021-10-04] MEDS: POLYETHYLENE GLYCOL POWDER 17 GM PACK PEG SCH (08:47)
[2021-10-04] MEDS: FUROSEMIDE 40 MG/4 ML VIAL IV SCH (12:00)
[2021-10-04 16:20] VITALS: BP 140/95
[2021-10-04] MEDS: predniSONE 20 MG TABLET PO SCH ×2 (20:49→21:29)
[2021-10-04] MEDS: ATORVASTATIN 80 MG TABLET PEG SCH ×2 (20:49→21:28)
[2021-10-05] MEDS: VANCOMYCIN 50 MG/ML 60 ML/BOTTLE PO SCH ×4 (00:47→20:50)
[2021-10-05] MEDS: ALBUTEROL 2.5 MG/3 ML NEB RESP TX SCH ×4 (01:00→19:00)
[2021-10-05] MEDS: INSULIN REGULAR 100 UNIT/ML SUBCUT SCH ×4 (02:24→17:50)
[2021-10-05 05:11] LABS: Basophils % 0.1 % (0.0-0.8); Eosinophils % 0.1 % (0.00-10.9); Hematocrit 33.2 VOL% (42.0-52.0); Hemoglobin 10.4 GM/DL (14.0-18.0); Immature Granulocytes Absolute 0.79 #; Lymphocytes # 1.7 10*3/uL (1.4-4.0); Lymphocytes % 10.6 % (21.2-54.2); Mean Corpuscular HGB Conc 31.3 GM/DL (32-36); Mean Corpuscular Volume 93.5 FL (87-102); Mean Platelet Volume 10.8 FL (9.6-12.0); Monocytes % 3.8 % (1.7-12.7); NRBC # 0.05 10*3/uL; Neutrophils % 80.4 % (38.7-73.9); Platelet Count 200 T/CUMM (130-400); Red Blood Count 3.55 MC/CUMM (3.8-5.5); Red Cell Distribution Width 13.2 % (9.3-17.3); White Blood Count 15.8 T/CUMM (4-12)
[2021-10-05 05:32] LABS: Calcium 8.3 MG/DL (8.5-10.1); Hypochromasia 1+; Lymphocytes 10 % (20-55); Microcytosis 1+; Osmolality,Calculated 289.4 MOS/KG (273-304); Platelet Estimate Adequate; Potassium 3.8 MMOL/L (3.5-5.1); Segmented Neutrophils 88 % (50-85); Total Cells Counted 100
[2021-10-05] MEDS: PIPERACILLIN/TAZOBACTAM 3,375 MG in SODIUM CHLORIDE 0.9% 100 ML IV SCH ×2 (06:53→15:14)
[2021-10-05] MEDS: MENTHOL/ZINC OXIDE OINT 71 GM JAR TOP SCH ×2 (08:48→20:50)
[2021-10-05] MEDS: PANTOPRAZOLE 40 MG VIAL IV SCH (09:04)
[2021-10-05] MEDS: methylPREDNISolone SOD SUC 40 MG/1 ML VIAL IV SCH ×2 (09:09→20:50)
[2021-10-05] MEDS: PHENYTOIN 100 MG/2 ML VIAL IV SCH ×2 (09:11→20:53)
[2021-10-05] MEDS: POLYETHYLENE GLYCOL POWDER 17 GM PACK PEG SCH (09:12)
[2021-10-05] MEDS: predniSONE 20 MG TABLET PO SCH (15:18)
[2021-10-05] MEDS: SERTRALINE 100 MG TABLET PEG SCH (15:19)
[2021-10-05] MEDS: DONEPEZIL 10 MG TABLET PEG SCH (15:19)
[2021-10-05] MEDS: guaiFENesin/DM ER 600-30 MG TABLET PO SCH ×2 (15:19→20:50)
[2021-10-05] MEDS: ASPIRIN CHEW 81 MG TABLET PO SCH (15:19)
[2021-10-05] MEDS: MULTIVITAMIN (CENTRUM) TABLET PEG SCH (15:19)
[2021-10-05] MEDS: ATORVASTATIN 80 MG TABLET PEG SCH (20:50)
[2021-10-06] MEDS: PIPERACILLIN/TAZOBACTAM 3,375 MG in SODIUM CHLORIDE 0.9% 100 ML IV SCH ×2 (00:45→06:31)
[2021-10-06] MEDS: VANCOMYCIN 50 MG/ML 60 ML/BOTTLE PO SCH ×4 (00:45→18:23)
[2021-10-06] MEDS: INSULIN REGULAR 100 UNIT/ML SUBCUT SCH ×4 (00:45→18:23)
[2021-10-06] MEDS: ALBUTEROL 2.5 MG/3 ML NEB RESP TX SCH ×4 (01:00→19:26)
[2021-10-06 05:12] LABS: Basophils % 0.1 % (0.0-0.8); Hemoglobin 10.9 GM/DL (14.0-18.0); Immature Granulocytes Absolute 0.63 #; Lymphocytes # 1.8 10*3/uL (1.4-4.0); Lymphocytes % 11.1 % (21.2-54.2); Mean Corpuscular HGB Conc 32.1 GM/DL (32-36); Mean Corpuscular Volume 93.9 FL (87-102); Mean Platelet Volume 10.9 FL (9.6-12.0); Monocytes % 5.7 % (1.7-12.7); NRBC # 0.06 10*3/uL; Neutrophils % 79.1 % (38.7-73.9); Platelet Count 232 T/CUMM (130-400); Red Blood Count 3.62 MC/CUMM (3.8-5.5); Red Cell Distribution Width 13.3 % (9.3-17.3); White Blood Count 15.8 T/CUMM (4-12)
[2021-10-06 05:29] LABS: Calcium 8.5 MG/DL (8.5-10.1); Osmolality,Calculated 289.7 MOS/KG (273-304); Potassium 3.8 MMOL/L (3.5-5.1)
[2021-10-06 05:35] LABS: Hypochromasia 1+; Lymphocytes 10 % (20-55); Myelocytes 2 %; Segmented Neutrophils 83 % (50-85); Total Cells Counted 100
[2021-10-06 05:36] LABS: Microcytosis 1+; Platelet Estimate Normal
[2021-10-06] MEDS: DONEPEZIL 10 MG TABLET PEG SCH (10:01)
[2021-10-06] MEDS: ASPIRIN CHEW 81 MG TABLET PO SCH (10:01)
[2021-10-06] MEDS: MULTIVITAMIN (CENTRUM) TABLET PEG SCH (10:01)
[2021-10-06] MEDS: MENTHOL/ZINC OXIDE OINT 71 GM JAR TOP SCH ×2 (10:01→20:00)
[2021-10-06] MEDS: PHENYTOIN 100 MG/2 ML VIAL IV SCH ×2 (10:01→20:03)
[2021-10-06] MEDS: PANTOPRAZOLE 40 MG VIAL IV SCH (10:02)
[2021-10-06] MEDS: POLYETHYLENE GLYCOL POWDER 17 GM PACK PEG SCH (10:02)
[2021-10-06] MEDS: guaiFENesin/DM ER 600-30 MG TABLET PO SCH ×2 (10:02→20:00)
[2021-10-06] MEDS: predniSONE 20 MG TABLET PO SCH (10:02)
[2021-10-06] MEDS: methylPREDNISolone SOD SUC 40 MG/1 ML VIAL IV SCH ×2 (10:02→20:00)
[2021-10-06] MEDS: SERTRALINE 100 MG TABLET PEG SCH (10:03)
[2021-10-06] MEDS: ATORVASTATIN 80 MG TABLET PEG SCH (20:00)
[2021-10-07] MEDS: ALBUTEROL 2.5 MG/3 ML NEB RESP TX SCH ×2 (00:10→07:08)
[2021-10-07] MEDS: INSULIN REGULAR 100 UNIT/ML SUBCUT SCH ×3 (00:23→06:24)
[2021-10-07] MEDS: VANCOMYCIN 50 MG/ML 60 ML/BOTTLE PO SCH ×2 (00:23→06:24)
[2021-10-07 05:28] LABS: Basophils % 0.1 % (0.0-0.8); Eosinophils % 0.1 % (0.00-10.9); Hematocrit 31.2 VOL% (42.0-52.0); Hemoglobin 9.9 GM/DL (14.0-18.0); Immature Granulocytes % 3.5 %; Immature Granulocytes Absolute 0.46 #; Lymphocytes # 1.8 10*3/uL (1.4-4.0); Lymphocytes % 13.9 % (21.2-54.2); Mean Corpuscular HGB Conc 31.7 GM/DL (32-36); Mean Corpuscular Volume 94.3 FL (87-102); Mean Platelet Volume 10.9 FL (9.6-12.0); NRBC # 0.04 10*3/uL; Neutrophils % 75.4 % (38.7-73.9); Platelet Count 232 T/CUMM (130-400); Red Blood Count 3.31 MC/CUMM (3.8-5.5); Red Cell Distribution Width 13.4 % (9.3-17.3); White Blood Count 13.2 T/CUMM (4-12)
[2021-10-07 05:44] LABS: Calcium 8.2 MG/DL (8.5-10.1); Osmolality,Calculated 294.3 MOS/KG (273-304)
[2021-10-07] MEDS: MENTHOL/ZINC OXIDE OINT 71 GM JAR TOP SCH (09:46)
[2021-10-07] MEDS: MULTIVITAMIN (CENTRUM) TABLET PEG SCH (09:46)
[2021-10-07] MEDS: PHENYTOIN 100 MG/2 ML VIAL IV SCH (09:46)
[2021-10-07] MEDS: ASPIRIN CHEW 81 MG TABLET PO SCH (09:46)
[2021-10-07] MEDS: DONEPEZIL 10 MG TABLET PEG SCH (09:46)
[2021-10-07] MEDS: POLYETHYLENE GLYCOL POWDER 17 GM PACK PEG SCH (09:47)
[2021-10-07] MEDS: PANTOPRAZOLE 40 MG VIAL IV SCH (09:47)
[2021-10-07] MEDS: predniSONE 20 MG TABLET PO SCH (09:47)
[2021-10-07] MEDS: guaiFENesin/DM ER 600-30 MG TABLET PO SCH (09:47)
[2021-10-07] MEDS: methylPREDNISolone SOD SUC 40 MG/1 ML VIAL IV SCH (09:50)
[2021-10-07] MEDS: SERTRALINE 100 MG TABLET PEG SCH (09:50)
== END 2021-10-07 12:03 | DRG 208 ==
LOC: EDBD → EDUNIT# → N.ED 16:21 → N.EDINP 19:09 → SUATTDRO 19:09 → N.CC 09-29 13:55 → N.3E 10-07 05:55 → N.CC 10-07 05:57
PROVIDERS: ADMIT Internal Medicine; ATTEND Internal Medicine

== ENCOUNTER 2021-11-08 17:08 | Inpatient (IN) ==
[2021-11-08] MEDS ORDERED: ALBUTEROL 2.5 MG/3 ML NEB RESP TX STA (17:29)
[2021-11-08] MEDS ORDERED: SODIUM CHLORIDE 0.9% 1,000 ML IV STA (17:29)
[2021-11-08 17:55] LABS: Basophils % 0.2 % (0.0-0.8); Eosinophils # 0.1 10*3/uL (0.0-0.87); Hemoglobin 12.4 GM/DL (14.0-18.0); Immature Granulocytes % 0.4 %; Immature Granulocytes Absolute 0.03 #; Lymphocytes # 1.3 10*3/uL (1.4-4.0); Mean Corpuscular Volume 95.9 FL (87-102); Mean Platelet Volume 10.8 FL (9.6-12.0); Neutrophils % 74.4 % (38.7-73.9); Platelet Count 233 T/CUMM (130-400); Red Blood Count 4.17 MC/CUMM (3.8-5.5); Red Cell Distribution Width 13.9 % (9.3-17.3); White Blood Count 8.2 T/CUMM (4-12)
[2021-11-08 18:06] LABS: ABG Base Excess 4.1 MMOL/L (-2.5-2.5); ABG HCO3 28.3 MMOL/L (20-26); ABG Oxygen Saturation 91.3 % (95-100); ABG PCO2 41.1 MM HG (35-48); ABG PH 7.456 (7.35-7.45); ABG PO2 60.7 MM HG (80-95); ABG TCO2 29.6 MMOL/L (23-27)
[2021-11-08 18:12] LABS: Alanine Aminotransferase 141 U/L (16-61); Albumin 3.3 G/DL (3.4-5.0); Alkaline Phosphatase 228 U/L (45-117); Aspartate Amino Transferase 137 U/L (0-37); Bilirubin,Total < 0.39 MG/DL (0.20-1.00); Blood Urea Nitrogen 30 MG/DL (7-18); Calcium 9.1 MG/DL (8.5-10.1); Carbon Dioxide 31 MMOL/L (21-32); Estimated Glom Filtration Rate 124 ML/MIN; Glucose 155 MG/DL (74-106); Osmolality,Calculated 291.1 MOS/KG (273-304); Potassium 4.5 MMOL/L (3.5-5.1); Sodium 142 MMOL/L (136-145); Total Protein 8.9 G/DL (6.4-8.2)
[2021-11-08] MEDS ORDERED: PIPERACILLIN/TAZOBACTAM 3,375 MG in SODIUM CHLORIDE 0.9% 100 ML IV STA (18:49)
[2021-11-08] MEDS ORDERED: GLUCAGON 1 MG VIAL IM PRN (19:13)
[2021-11-08] MEDS ORDERED: ALBUTEROL 2.5 MG/3 ML NEB RESP TX PRN (19:15)
[2021-11-08] MEDS ORDERED: ONDANSETRON 4 MG/2 ML VIAL IV PRN (19:15)
[2021-11-08] MEDS ORDERED: ALBUTEROL/IPRATROPIUM 3 ML NEB RESP TX SCH (19:30)
[2021-11-08] MEDS ORDERED: ACETAMINOPHEN 325 MG TABLET PEG PRN (19:33)
[2021-11-08] MEDS ORDERED: DEXTROSE 50% 25 GM/50 ML SYRINGE IV PRN (19:49)
[2021-11-08] MEDS: SODIUM CHLORIDE 0.9% 1,000 ML IV SCH (19:52)
[2021-11-08 20:25] LABS: Thyroid Stimulating Hormone 2.35 uIU/ml (0.358-3.74)
[2021-11-08] MEDS ORDERED: SODIUM CHLORIDE 0.9% 500 ML IV ONE (20:59)
[2021-11-08] MEDS ORDERED: PHENYTOIN ER 100 MG CAPSULE PO SCH (21:00)
[2021-11-08] MEDS ORDERED: ATORVASTATIN 80 MG TABLET PEG SCH (21:00)
[2021-11-08] MEDS: INSULIN REGULAR 100 UNIT/ML SUBCUT SCH (22:57)
[2021-11-08] MEDS: ENOXAPARIN 40 MG/0.4 ML SYRINGE SUBCUT SCH (23:21)
[2021-11-08] MEDS ORDERED: ALBUTEROL/IPRATROPIUM 3 ML NEB RESP TX ONE (23:56)
[2021-11-09] MEDS: ALBUTEROL/IPRATROPIUM 3 ML NEB RESP TX SCH ×4 (00:05→20:55)
[2021-11-09] MEDS: IBUPROFEN 400 MG TABLET PEG PRN ×2 (02:34→18:16)
[2021-11-09] MEDS: SODIUM CHLORIDE 0.9% 1,000 ML IV SCH ×3 (06:42→22:46)
[2021-11-09] MEDS: PIPERACILLIN/TAZOBACTAM 3,375 MG in SODIUM CHLORIDE 0.9% 100 ML IV SCH ×3 (07:06→21:05)
[2021-11-09 07:30] LABS: Basophils % 0.3 % (0.0-0.8); Hematocrit 32.1 VOL% (42.0-52.0); Hemoglobin 10.1 GM/DL (14.0-18.0); Immature Granulocytes % 0.6 %; Immature Granulocytes Absolute 0.04 #; Lymphocytes # 0.6 10*3/uL (1.4-4.0); Mean Corpuscular HGB Conc 31.5 GM/DL (32-36); Mean Corpuscular Volume 96.7 FL (87-102); Monocytes % 8.6 % (1.7-12.7); Neutrophils % 82.5 % (38.7-73.9); Platelet Count 211 T/CUMM (130-400); Red Blood Count 3.32 MC/CUMM (3.8-5.5); White Blood Count 7.1 T/CUMM (4-12)
[2021-11-09 08:10] LABS: Alanine Aminotransferase 91 U/L (16-61); Albumin 2.6 G/DL (3.4-5.0); Alkaline Phosphatase 165 U/L (45-117); Aspartate Amino Transferase 71 U/L (0-37); Bilirubin,Total < 0.39 MG/DL (0.20-1.00); Blood Urea Nitrogen 24 MG/DL (7-18); Calcium 8.9 MG/DL (8.5-10.1); Carbon Dioxide 28 MMOL/L (21-32); Estimated Glom Filtration Rate 120 ML/MIN; Glucose 155 MG/DL (74-106); HDL Cholesterol 49 MG/DL (40-60); Osmolality,Calculated 292.8 MOS/KG (273-304); Potassium 3.4 MMOL/L (3.5-5.1); Risk Ratio 2.86; Sodium 144 MMOL/L (136-145); Triglycerides 80 MG/DL (2-150)
[2021-11-09] MEDS: INSULIN REGULAR 100 UNIT/ML SUBCUT SCH ×4 (08:21→21:05)
[2021-11-09] MEDS: PHENYTOIN 100 MG/4 ML UDCUP PEG SCH ×2 (10:14→21:03)
[2021-11-09] MEDS: levETIRAcetam LIQUID 100 MG/ML 30 ML/BOTTLE PEG SCH ×2 (10:15→21:03)
[2021-11-09] MEDS: PANTOPRAZOLE 40 MG TABLET PO SCH (10:16)
[2021-11-09] MEDS: ASPIRIN CHEW 81 MG TABLET PO SCH (10:16)
[2021-11-09] MEDS: DONEPEZIL 10 MG TABLET PEG SCH (10:16)
[2021-11-09] MEDS ORDERED: POTASSIUM PHOS/SOD PHOS POWDER 250 MG PACK PEG ONE (11:34)
[2021-11-09] MEDS ORDERED: VANCOMYCIN INJ 1,000 MG in SODIUM CHLORIDE 0.9% 250 ML IV ONE (13:24)
[2021-11-09 18:09] LABS: Bacteria,Urine Occasional /HPF (Few); Bilirubin,Urine Negative (Negative); Blood, Urine Moderate mg/dL (Negative); Glucose,Urine (UA) Negative (Negative); Ketones,Urine Negative (Negative); Mucus,Urine Occasional /LPF (Occasional); Nitrite,Urine Negative (Negative); Protein,Urine 100 MG/DL; RBC,Urine 10 /HPF (0-4); Squamous Epithelial Cell,Urine Occasional /HPF (0-10); Urine Appearance CLOUDY (Clear); Urine Color Yellow (Yellow); Urine Specific Gravity 1.023 (1.001-1.035); Urine Urobilinogen < 2.0 EU/DL (<2.0)
[2021-11-09] MEDS: ENOXAPARIN 40 MG/0.4 ML SYRINGE SUBCUT SCH (21:05)
[2021-11-10] MEDS: ALBUTEROL/IPRATROPIUM 3 ML NEB RESP TX SCH ×4 (02:26→19:11)
[2021-11-10] MEDS ORDERED: DEXTROSE 10% 250 ML BAG IV PRN (02:32)
[2021-11-10] MEDS: PIPERACILLIN/TAZOBACTAM 3,375 MG in SODIUM CHLORIDE 0.9% 100 ML IV SCH ×3 (04:54→20:32)
[2021-11-10] MEDS: SODIUM CHLORIDE 0.9% 1,000 ML IV SCH ×3 (04:54→19:03)
[2021-11-10 05:03] LABS: Basophils % 0.3 % (0.0-0.8); Eosinophils % 0.3 % (0.00-10.9); Hemoglobin 9.2 GM/DL (14.0-18.0); Immature Granulocytes % 0.6 %; Immature Granulocytes Absolute 0.04 #; Lymphocytes % 13.5 % (21.2-54.2); Mean Corpuscular HGB Conc 30.7 GM/DL (32-36); Mean Corpuscular Volume 98.7 FL (87-102); Mean Platelet Volume 10.5 FL (9.6-12.0); Monocytes % 11.4 % (1.7-12.7); Neutrophils % 73.9 % (38.7-73.9); Platelet Count 204 T/CUMM (130-400); Red Blood Count 3.04 MC/CUMM (3.8-5.5); Red Cell Distribution Width 14.1 % (9.3-17.3); White Blood Count 7.1 T/CUMM (4-12)
[2021-11-10 05:29] LABS: Alanine Aminotransferase 68 U/L (16-61); Albumin 2.4 G/DL (3.4-5.0); Alkaline Phosphatase 141 U/L (45-117); Aspartate Amino Transferase 51 U/L (0-37); Bilirubin,Total < 0.39 MG/DL (0.20-1.00); Blood Urea Nitrogen 18 MG/DL (7-18); Calcium 8.8 MG/DL (8.5-10.1); Carbon Dioxide 29 MMOL/L (21-32); Estimated Glom Filtration Rate 126 ML/MIN; Glucose 117 MG/DL (74-106); Osmolality,Calculated 296.3 MOS/KG (273-304); Potassium 3.1 MMOL/L (3.5-5.1); Sodium 148 MMOL/L (136-145); Total Protein 7.6 G/DL (6.4-8.2)
[2021-11-10] MEDS: ASPIRIN CHEW 81 MG TABLET PO SCH (10:08)
[2021-11-10] MEDS: PHENYTOIN 100 MG/4 ML UDCUP PEG SCH ×2 (10:08→20:31)
[2021-11-10] MEDS: levETIRAcetam LIQUID 100 MG/ML 30 ML/BOTTLE PEG SCH ×2 (10:09→20:31)
[2021-11-10] MEDS: DONEPEZIL 10 MG TABLET PEG SCH (10:09)
[2021-11-10] MEDS: PANTOPRAZOLE 40 MG TABLET PO SCH (10:09)
[2021-11-10] MEDS: INSULIN REGULAR 100 UNIT/ML SUBCUT SCH ×4 (10:23→21:49)
[2021-11-10] MEDS: ENOXAPARIN 40 MG/0.4 ML SYRINGE SUBCUT SCH (20:32)
[2021-11-11] MEDS: ALBUTEROL/IPRATROPIUM 3 ML NEB RESP TX SCH ×4 (02:00→20:09)
[2021-11-11] MEDS: PIPERACILLIN/TAZOBACTAM 3,375 MG in SODIUM CHLORIDE 0.9% 100 ML IV SCH ×3 (04:30→22:52)
[2021-11-11] MEDS: SODIUM CHLORIDE 0.9% 1,000 ML IV SCH (04:30)
[2021-11-11 05:30] LABS: Basophils % 0.2 % (0.0-0.8); Eosinophils # 0.1 10*3/uL (0.0-0.87); Eosinophils % 1.4 % (0.00-10.9); Hematocrit 28.9 VOL% (42.0-52.0); Immature Granulocytes % 0.3 %; Immature Granulocytes Absolute 0.02 #; Lymphocytes # 1.1 10*3/uL (1.4-4.0); Lymphocytes % 16.6 % (21.2-54.2); Mean Corpuscular HGB Conc 31.1 GM/DL (32-36); Mean Corpuscular Volume 96.7 FL (87-102); Mean Platelet Volume 10.8 FL (9.6-12.0); Monocytes % 10.4 % (1.7-12.7); Neutrophils % 71.1 % (38.7-73.9); Platelet Count 214 T/CUMM (130-400); Red Blood Count 2.99 MC/CUMM (3.8-5.5); Red Cell Distribution Width 13.9 % (9.3-17.3); White Blood Count 6.6 T/CUMM (4-12)
[2021-11-11 05:49] LABS: Calcium 8.1 MG/DL (8.5-10.1); Osmolality,Calculated 294.4 MOS/KG (273-304)
[2021-11-11 05:52] LABS: Alanine Aminotransferase 61 U/L (16-61); Albumin 2.3 G/DL (3.4-5.0); Alkaline Phosphatase 137 U/L (45-117); Aspartate Amino Transferase 45 U/L (0-37); Bilirubin,Total < 0.39 MG/DL (0.20-1.00); Blood Urea Nitrogen 12 MG/DL (7-18); Calcium 8.1 MG/DL (8.5-10.1); Carbon Dioxide 29 MMOL/L (21-32); Estimated Glom Filtration Rate 135 ML/MIN; Glucose 151 MG/DL (74-106); Osmolality,Calculated 294.4 MOS/KG (273-304); Potassium 2.9 MMOL/L (3.5-5.1); Sodium 147 MMOL/L (136-145); Total Protein 7.4 G/DL (6.4-8.2)
[2021-11-11] MEDS: PHENYTOIN 100 MG/4 ML UDCUP PEG SCH ×2 (08:47→22:00)
[2021-11-11] MEDS: ASPIRIN CHEW 81 MG TABLET PO SCH (08:48)
[2021-11-11] MEDS: DONEPEZIL 10 MG TABLET PEG SCH (08:48)
[2021-11-11] MEDS: PANTOPRAZOLE 40 MG TABLET PO SCH (08:48)
[2021-11-11] MEDS: DEXT 5% NACL 0.45% KCL 40 MEQ 40 MEQ/1,000 ML BAG IV SCH (09:44)
[2021-11-11] MEDS: levETIRAcetam LIQUID 100 MG/ML 30 ML/BOTTLE PEG SCH ×2 (09:57→22:00)
[2021-11-11] MEDS: INSULIN REGULAR 100 UNIT/ML SUBCUT SCH ×4 (09:59→23:39)
[2021-11-11] MEDS: ENOXAPARIN 40 MG/0.4 ML SYRINGE SUBCUT SCH (22:00)
[2021-11-12] MEDS: ALBUTEROL/IPRATROPIUM 3 ML NEB RESP TX SCH ×2 (01:30→07:20)
[2021-11-12 04:43] LABS: Basophils % 0.2 % (0.0-0.8); Eosinophils # 0.1 10*3/uL (0.0-0.87); Eosinophils % 1.7 % (0.00-10.9); Hematocrit 27.5 VOL% (42.0-52.0); Hemoglobin 8.8 GM/DL (14.0-18.0); Immature Granulocytes % 0.5 %; Immature Granulocytes Absolute 0.03 #; Lymphocytes # 1.4 10*3/uL (1.4-4.0); Mean Corpuscular Volume 94.8 FL (87-102); Mean Platelet Volume 10.4 FL (9.6-12.0); Neutrophils % 68.6 % (38.7-73.9); Platelet Count 184 T/CUMM (130-400); Red Cell Distribution Width 13.7 % (9.3-17.3); White Blood Count 6.5 T/CUMM (4-12)
[2021-11-12 05:00] LABS: Albumin 2.1 G/DL (3.4-5.0); Bilirubin,Total 0.8 MG/DL (0.20-1.00); Calcium 7.9 MG/DL (8.5-10.1); Osmolality,Calculated 294.7 MOS/KG (273-304); Potassium 3.3 MMOL/L (3.5-5.1); Total Protein 6.8 G/DL (6.4-8.2)
[2021-11-12] MEDS: PIPERACILLIN/TAZOBACTAM 3,375 MG in SODIUM CHLORIDE 0.9% 100 ML IV SCH (06:00)
[2021-11-12] MEDS: DEXT 5% NACL 0.45% KCL 40 MEQ 40 MEQ/1,000 ML BAG IV SCH (06:00)
[2021-11-12 08:18] VITALS: BP 122/72
[2021-11-12] MEDS ORDERED: POTASSIUM PHOS/SOD PHOS POWDER 250 MG PACK PO ONE (08:32)
[2021-11-12] MEDS: INSULIN REGULAR 100 UNIT/ML SUBCUT SCH ×2 (09:41→11:53)
[2021-11-12] MEDS: levETIRAcetam LIQUID 100 MG/ML 30 ML/BOTTLE PEG SCH (09:42)
[2021-11-12] MEDS: DONEPEZIL 10 MG TABLET PEG SCH (09:42)
[2021-11-12] MEDS: PANTOPRAZOLE 40 MG TABLET PO SCH (09:42)
[2021-11-12] MEDS: ASPIRIN CHEW 81 MG TABLET PO SCH (09:42)
[2021-11-12] MEDS: PHENYTOIN 100 MG/4 ML UDCUP PEG SCH (09:42)
== END 2021-11-12 12:35 | disposition swing bed (61) | DRG 177 ==
LOC: EDBD → EDUNIT# → N.ED 17:08 → N.EDINP 18:59 → N.TELEN 22:56
PROVIDERS: ADMIT Internal Medicine; ATTEND Internal Medicine

== ENCOUNTER 2021-12-25 02:40 | Inpatient (IN) ==
[2021-12-25] MEDS ORDERED: ONDANSETRON 4 MG/2 ML VIAL IV STA (02:42)
[2021-12-25] MEDS ORDERED: PIPERACILLIN/TAZOBACTAM 3,375 MG in SODIUM CHLORIDE 0.9% 100 ML IV STA (02:42)
[2021-12-25] MEDS ORDERED: methylPREDNISolone SOD SUC 125 MG/2 ML VIAL IV STA (02:42)
[2021-12-25] MEDS ORDERED: CLINDAMYCIN INJ 600 MG/50 ML PREMIX IV STA (02:42)
[2021-12-25] MEDS ORDERED: ALBUTEROL/IPRATROPIUM 3 ML NEB RESP TX STA ×2 (02:42→07:05)
[2021-12-25 03:20] LABS: Basophils # 0.1 10*3/uL (0.0-0.2); Basophils % 0.7 % (0.0-0.8); Eosinophils # 0.2 10*3/uL (0.0-0.87); Eosinophils % 2.2 % (0.00-10.9); Hematocrit 39.5 VOL% (42.0-52.0); Hemoglobin 12.1 GM/DL (14.0-18.0); Immature Granulocytes % 0.3 %; Immature Granulocytes Absolute 0.02 #; Lymphocytes # 1.3 10*3/uL (1.4-4.0); Lymphocytes % 18.6 % (21.2-54.2); Mean Corpuscular HGB Conc 30.6 GM/DL (32-36); Mean Corpuscular Volume 97.3 FL (87-102); Mean Platelet Volume 10.5 FL (9.6-12.0); Neutrophils % 72.2 % (38.7-73.9); Platelet Count 262 T/CUMM (130-400); Red Blood Count 4.06 MC/CUMM (3.8-5.5); Red Cell Distribution Width 14.6 % (9.3-17.3); White Blood Count 6.8 T/CUMM (4-12)
[2021-12-25 03:36] LABS: Alanine Aminotransferase 75 U/L (16-61); Albumin 2.7 G/DL (3.4-5.0); Alkaline Phosphatase 205 U/L (45-117); Aspartate Amino Transferase 98 U/L (0-37); Bilirubin,Total < 0.39 MG/DL (0.20-1.00); Blood Urea Nitrogen 25 MG/DL (7-18); Calcium 8.6 MG/DL (8.5-10.1); Carbon Dioxide 31 MMOL/L (21-32); Estimated Glom Filtration Rate 163 ML/MIN; Glucose 221 MG/DL (74-106); Osmolality,Calculated 298.7 MOS/KG (273-304); Potassium 4.1 MMOL/L (3.5-5.1); Sodium 145 MMOL/L (136-145); Total Protein 8.1 G/DL (6.4-8.2)
[2021-12-25 03:45] LABS: INR 1.1; PT Patient Result 12.1 SECS (10.5-12.0)
[2021-12-25] MEDS ORDERED: DEXTROSE 10% 250 ML BAG IV PRN (04:36)
[2021-12-25] MEDS ORDERED: GLUCAGON 1 MG VIAL IM PRN (04:36)
[2021-12-25] MEDS ORDERED: ACETAMINOPHEN 325 MG TABLET PO PRN (04:48)
[2021-12-25] MEDS ORDERED: ONDANSETRON 4 MG/2 ML VIAL IV PRN (04:48)
[2021-12-25] MEDS: INSULIN LISPRO 100 UNIT/ML SUBCUT SCH ×3 (06:27→19:16)
[2021-12-25] MEDS: ALBUTEROL/IPRATROPIUM 3 ML NEB RESP TX SCH ×3 (07:00→19:36)
[2021-12-25] MEDS ORDERED: INFLUENZA VIRUS VACCINE 0.5 ML SYRINGE IM ONE (08:47)
[2021-12-25] MEDS ORDERED: PANTOPRAZOLE 40 MG TABLET PO SCH (09:00)
[2021-12-25] MEDS: PIPERACILLIN/TAZOBACTAM 3,375 MG in SODIUM CHLORIDE 0.9% 100 ML IV SCH ×2 (10:28→17:36)
[2021-12-25] MEDS: ENOXAPARIN 40 MG/0.4 ML SYRINGE SUBCUT SCH (22:01)
[2021-12-26] MEDS: ALBUTEROL/IPRATROPIUM 3 ML NEB RESP TX SCH ×4 (00:25→19:59)
[2021-12-26] MEDS: PIPERACILLIN/TAZOBACTAM 3,375 MG in SODIUM CHLORIDE 0.9% 100 ML IV SCH ×3 (03:26→17:27)
[2021-12-26] MEDS: INSULIN LISPRO 100 UNIT/ML SUBCUT SCH ×4 (03:27→17:26)
[2021-12-26 05:47] LABS: Basophils % 0.5 % (0.0-0.8); Eosinophils # 0.1 10*3/uL (0.0-0.87); Eosinophils % 1.1 % (0.00-10.9); Hematocrit 31.7 VOL% (42.0-52.0); Hemoglobin 9.6 GM/DL (14.0-18.0); Immature Granulocytes % 0.5 %; Immature Granulocytes Absolute 0.04 #; Lymphocytes # 1.6 10*3/uL (1.4-4.0); Lymphocytes % 19.1 % (21.2-54.2); Mean Corpuscular HGB Conc 30.3 GM/DL (32-36); Mean Corpuscular Volume 98.4 FL (87-102); Mean Platelet Volume 11.2 FL (9.6-12.0); Monocytes % 7.4 % (1.7-12.7); Neutrophils % 71.4 % (38.7-73.9); Platelet Count 216 T/CUMM (130-400); Red Blood Count 3.22 MC/CUMM (3.8-5.5); Red Cell Distribution Width 14.6 % (9.3-17.3); White Blood Count 8.2 T/CUMM (4-12)
[2021-12-26 06:18] LABS: Albumin 2.2 G/DL (3.4-5.0); Bilirubin,Total 1.1 MG/DL (0.20-1.00); Calcium 8.7 MG/DL (8.5-10.1); Osmolality,Calculated 299.6 MOS/KG (273-304); Potassium 4.3 MMOL/L (3.5-5.1); Total Protein 7.5 G/DL (6.4-8.2)
[2021-12-26 06:23] LABS: Hypochromia 1+; Platelet Estimate Adequate
[2021-12-26] MEDS: OMEPRAZOLE ODT 20 MG TABLET PEG SCH (10:37)
[2021-12-26] MEDS ORDERED: ALBUTEROL 2.5 MG/3 ML NEB RESP TX PRN (12:00)
[2021-12-26] MEDS ORDERED: ACETAMINOPHEN 325 MG TABLET PEG PRN (12:00)
[2021-12-26] MEDS: levETIRAcetam LIQUID 100 MG/ML 30 ML/BOTTLE PO SCH ×2 (12:55→21:58)
[2021-12-26] MEDS: MENTHOL/ZINC OXIDE OINT 71 GM JAR TOP SCH ×2 (12:55→21:58)
[2021-12-26] MEDS: DEXTROSE 5% 1,000 ML IV SCH (15:47)
[2021-12-26] MEDS ORDERED: INSULIN GLARGINE 100 UNIT/ML SUBCUT SCH (21:00)
[2021-12-26] MEDS: metFORMIN 500 MG TABLET PEG SCH (21:57)
[2021-12-26] MEDS: PHENYTOIN 100 MG/4 ML UDCUP PEG SCH (21:58)
[2021-12-26] MEDS: ENOXAPARIN 40 MG/0.4 ML SYRINGE SUBCUT SCH (21:58)
[2021-12-27] MEDS: INSULIN LISPRO 100 UNIT/ML SUBCUT SCH ×3 (00:42→12:33)
[2021-12-27] MEDS: PIPERACILLIN/TAZOBACTAM 3,375 MG in SODIUM CHLORIDE 0.9% 100 ML IV SCH ×2 (02:28→11:06)
[2021-12-27 06:08] LABS: Basophils % 0.5 % (0.0-0.8); Eosinophils # 0.1 10*3/uL (0.0-0.87); Eosinophils % 1.6 % (0.00-10.9); Hematocrit 32.5 VOL% (42.0-52.0); Hemoglobin 9.8 GM/DL (14.0-18.0); Immature Granulocytes % 0.5 %; Immature Granulocytes Absolute 0.04 #; Lymphocytes # 1.3 10*3/uL (1.4-4.0); Lymphocytes % 15.2 % (21.2-54.2); Mean Corpuscular HGB Conc 30.2 GM/DL (32-36); Mean Corpuscular Volume 98.2 FL (87-102); Mean Platelet Volume 11.3 FL (9.6-12.0); Monocytes % 7.9 % (1.7-12.7); Neutrophils % 74.3 % (38.7-73.9); Platelet Count 217 T/CUMM (130-400); Red Blood Count 3.31 MC/CUMM (3.8-5.5); Red Cell Distribution Width 14.7 % (9.3-17.3); White Blood Count 8.3 T/CUMM (4-12)
[2021-12-27 06:25] LABS: Osmolality,Calculated 298.7 MOS/KG (273-304)
[2021-12-27 06:30] LABS: Platelet Estimate Normal
[2021-12-27 06:31] LABS: Hypochromia Slight
[2021-12-27] MEDS: ALBUTEROL/IPRATROPIUM 3 ML NEB RESP TX SCH ×2 (06:57→14:45)
[2021-12-27] MEDS ORDERED: POLYETHYLENE GLYCOL POWDER 17 GM PACK PEG SCH (09:00)
[2021-12-27] MEDS ORDERED: DONEPEZIL 10 MG TABLET PEG SCH (09:00)
[2021-12-27] MEDS ORDERED: SERTRALINE 100 MG TABLET PEG SCH (09:00)
[2021-12-27] MEDS ORDERED: MULTIVITAMIN LIQUID (CENTRUM) 60 ML BOTTLE PEG SCH (09:00)
[2021-12-27] MEDS: metFORMIN 500 MG TABLET PEG SCH (09:18)
[2021-12-27] MEDS: OMEPRAZOLE ODT 20 MG TABLET PEG SCH (09:18)
[2021-12-27] MEDS: PHENYTOIN 100 MG/4 ML UDCUP PEG SCH (09:20)
[2021-12-27] MEDS: levETIRAcetam LIQUID 100 MG/ML 30 ML/BOTTLE PO SCH (09:21)
[2021-12-27] MEDS: MENTHOL/ZINC OXIDE OINT 71 GM JAR TOP SCH (09:22)
[2021-12-27 11:37] VITALS: BP 136/82
[2021-12-27] MEDS: DEXTROSE 5% 1,000 ML IV SCH (14:08)
== END 2021-12-27 16:20 | DRG 177 ==
LOC: EDUNIT# → SUATTDRO → N.ED 02:40 → N.EDINP 04:36 → N.3E 08:31
PROVIDERS: ADMIT Internal Medicine Geriatric Medicine; ATTEND Internal Medicine Geriatric Medicine

== ENCOUNTER 2021-12-28 14:19 | Inpatient (IN) ==
[2021-12-28] MEDS ORDERED: methylPREDNISolone SOD SUC 125 MG/2 ML VIAL IV STA (14:36)
[2021-12-28] MEDS ORDERED: ALBUTEROL NEB SOLN 5 MG/ML 20 ML/BOTTLE CONT NEB SCH (15:00)
[2021-12-28 15:07] LABS: ABG Base Excess 1.3 MMOL/L (-2.5-2.5); ABG HCO3 26.9 MMOL/L (20-26); ABG Oxygen Saturation 88.8 % (95-100); ABG PCO2 46.9 MM HG (35-48); ABG PH 7.377 (7.35-7.45); ABG PO2 59.1 MM HG (80-95); ABG TCO2 28.4 MMOL/L (23-27)
[2021-12-28] MEDS ORDERED: PIPERACILLIN/TAZOBACTAM 3,375 MG in SODIUM CHLORIDE 0.9% 100 ML IV STA (15:53)
[2021-12-28 16:59] LABS: Basophils % 0.2 % (0.0-0.8); Eosinophils % 0.1 % (0.00-10.9); Hematocrit 41.1 VOL% (42.0-52.0); Hemoglobin 12.6 GM/DL (14.0-18.0); Immature Granulocytes % 0.5 %; Immature Granulocytes Absolute 0.08 #; Lymphocytes # 0.9 10*3/uL (1.4-4.0); Lymphocytes % 6.3 % (21.2-54.2); Mean Corpuscular HGB Conc 30.7 GM/DL (32-36); Mean Corpuscular Volume 97.2 FL (87-102); Mean Platelet Volume 11.2 FL (9.6-12.0); Monocytes % 2.6 % (1.7-12.7); Neutrophils % 90.3 % (38.7-73.9); Platelet Count 274 T/CUMM (130-400); Red Blood Count 4.23 MC/CUMM (3.8-5.5); Red Cell Distribution Width 14.5 % (9.3-17.3); White Blood Count 14.9 T/CUMM (4-12)
[2021-12-28 17:13] LABS: Alanine Aminotransferase 56 U/L (16-61); Albumin 2.5 G/DL (3.4-5.0); Alkaline Phosphatase 156 U/L (45-117); Aspartate Amino Transferase 50 U/L (0-37); Bilirubin,Total < 0.39 MG/DL (0.20-1.00); Blood Urea Nitrogen 24 MG/DL (7-18); Carbon Dioxide 29 MMOL/L (21-32); Estimated Glom Filtration Rate 100 ML/MIN; Glucose 243 MG/DL (74-106); Osmolality,Calculated 290.4 MOS/KG (273-304); Potassium 3.7 MMOL/L (3.5-5.1); Sodium 140 MMOL/L (136-145); Total Protein 8.3 G/DL (6.4-8.2)
[2021-12-28 17:25] LABS: Band Neutrophils 12 % (0-10); Lymphocytes 6 % (20-55); Metamyelocytes 2 %; Segmented Neutrophils 79 % (50-85); Total Cells Counted 100
[2021-12-28 17:26] LABS: Anisocytosis Slight; Hypochromia Slight; Platelet Estimate Adequate
[2021-12-28] MEDS ORDERED: SODIUM CHLORIDE 0.9% 1,000 ML IV STA (17:35)
[2021-12-28] MEDS ORDERED: SODIUM CHLORIDE 0.9% 2,000 ML IV STA (17:35)
[2021-12-28] MEDS ORDERED: GLUCAGON 1 MG VIAL IM PRN (17:53)
[2021-12-28] MEDS ORDERED: DEXTROSE 10% 250 ML BAG IV PRN (18:04)
[2021-12-28] MEDS: INSULIN LISPRO 100 UNIT/ML SUBCUT SCH (19:47)
[2021-12-28] MEDS: INSULIN GLARGINE 100 UNIT/ML SUBCUT SCH (22:25)
[2021-12-28] MEDS: MENTHOL/ZINC OXIDE OINT 71 GM JAR TOP SCH (22:25)
[2021-12-28] MEDS: levETIRAcetam LIQUID 100 MG/ML 30 ML/BOTTLE PO SCH (22:26)
[2021-12-28] MEDS: PHENYTOIN 100 MG/4 ML UDCUP PER TUBE SCH (22:27)
[2021-12-29] MEDS: ALBUTEROL/IPRATROPIUM 3 ML NEB RESP TX SCH ×5 (00:14→20:00)
[2021-12-29] MEDS: INSULIN LISPRO 100 UNIT/ML SUBCUT SCH ×4 (00:42→18:22)
[2021-12-29] MEDS: ALBUTEROL 2.5 MG/3 ML NEB RESP TX SCH ×2 (00:42→02:24)
[2021-12-29] MEDS: SODIUM CHLORIDE 0.9% 1,000 ML IV SCH ×2 (00:43→17:54)
[2021-12-29 01:24] LABS: Basophils % 0.1 % (0.0-0.8); Hematocrit 34.5 VOL% (42.0-52.0); Hemoglobin 10.9 GM/DL (14.0-18.0); Immature Granulocytes % 0.5 %; Immature Granulocytes Absolute 0.08 #; Lymphocytes # 0.6 10*3/uL (1.4-4.0); Lymphocytes % 3.2 % (21.2-54.2); Mean Corpuscular HGB Conc 31.6 GM/DL (32-36); Mean Corpuscular Volume 94.8 FL (87-102); Mean Platelet Volume 11.4 FL (9.6-12.0); Monocytes % 5.7 % (1.7-12.7); Neutrophils % 90.5 % (38.7-73.9); Red Blood Count 3.64 MC/CUMM (3.8-5.5); Red Cell Distribution Width 14.7 % (9.3-17.3); White Blood Count 17.6 T/CUMM (4-12)
[2021-12-29 01:26] LABS: Bilirubin,Total 0.4 MG/DL (0.20-1.00); Calcium 7.9 MG/DL (8.5-10.1); Potassium 3.6 MMOL/L (3.5-5.1); Total Protein 8.2 G/DL (6.4-8.2)
[2021-12-29 01:39] LABS: Platelet Count 154 T/CUMM (130-400)
[2021-12-29] MEDS: PIPERACILLIN/TAZOBACTAM 3,375 MG in SODIUM CHLORIDE 0.9% 100 ML IV SCH ×3 (01:43→17:20)
[2021-12-29 02:44] LABS: Band Neutrophils 19 % (0-10); Lymphocytes 3 % (20-55); Metamyelocytes 4 %; Myelocytes 3 %; Segmented Neutrophils 64 % (50-85); Total Cells Counted 100
[2021-12-29 02:45] LABS: Hypochromia 1+; Platelet Estimate Normal
[2021-12-29] MEDS ORDERED: PANTOPRAZOLE 40 MG TABLET PO SCH (09:00)
[2021-12-29] MEDS ORDERED: MULTIVITAMIN (CENTRUM) TABLET PEG SCH (09:00)
[2021-12-29] MEDS: ASPIRIN CHEW 81 MG TABLET PO SCH (09:40)
[2021-12-29] MEDS: DONEPEZIL 10 MG TABLET PEG SCH (09:40)
[2021-12-29] MEDS: SERTRALINE 100 MG TABLET PEG SCH (09:40)
[2021-12-29] MEDS: POLYETHYLENE GLYCOL POWDER 17 GM PACK PEG SCH (09:41)
[2021-12-29] MEDS: MENTHOL/ZINC OXIDE OINT 71 GM JAR TOP SCH ×2 (09:41→21:46)
[2021-12-29] MEDS: PHENYTOIN 100 MG/4 ML UDCUP PER TUBE SCH ×2 (09:51→21:45)
[2021-12-29] MEDS: levETIRAcetam LIQUID 100 MG/ML 30 ML/BOTTLE PO SCH ×2 (09:51→21:46)
[2021-12-29] MEDS: INSULIN GLARGINE 100 UNIT/ML SUBCUT SCH (21:50)
[2021-12-30] MEDS: ALBUTEROL/IPRATROPIUM 3 ML NEB RESP TX SCH ×4 (00:20→20:00)
[2021-12-30] MEDS ORDERED: ETOMIDATE 20 MG/10 ML VIAL IV ONE ×2 (00:30→00:49)
[2021-12-30] MEDS ORDERED: VECURONIUM 10 MG VIAL IV ONE ×2 (00:31→00:50)
[2021-12-30] MEDS: PIPERACILLIN/TAZOBACTAM 3,375 MG in SODIUM CHLORIDE 0.9% 100 ML IV SCH ×3 (01:25→18:32)
[2021-12-30] MEDS: INSULIN LISPRO 100 UNIT/ML SUBCUT SCH ×4 (01:25→18:33)
[2021-12-30 02:05] LABS: Basophils % 0.1 % (0.0-0.8); Hematocrit 34.4 VOL% (42.0-52.0); Hemoglobin 10.6 GM/DL (14.0-18.0); Immature Granulocytes % 0.5 %; Immature Granulocytes Absolute 0.08 #; Lymphocytes # 0.7 10*3/uL (1.4-4.0); Lymphocytes % 4.4 % (21.2-54.2); Mean Corpuscular HGB Conc 30.8 GM/DL (32-36); Mean Corpuscular Volume 97.5 FL (87-102); Mean Platelet Volume 11.8 FL (9.6-12.0); Monocytes % 3.9 % (1.7-12.7); Neutrophils % 91.1 % (38.7-73.9); Platelet Count 188 T/CUMM (130-400); Red Blood Count 3.53 MC/CUMM (3.8-5.5); Red Cell Distribution Width 14.9 % (9.3-17.3); White Blood Count 16.9 T/CUMM (4-12)
[2021-12-30 02:06] LABS: Bacteria,Urine Occasional /HPF (Few); Mucus,Urine Occasional /LPF (Occasional); RBC,Urine 13 /HPF (0-4); Squamous Epithelial Cell,Urine Occasional /HPF (0-10)
[2021-12-30 02:12] LABS: Protein,Urine 100 MG/DL; Urine Appearance Clear (Clear); Urine Color Yellow (Yellow); Urine Specific Gravity 1.025 (1.001-1.035); Urine pH 5.5 (4.5-8.0)
[2021-12-30 02:13] LABS: Bilirubin,Urine Negative (Negative); Blood, Urine Moderate mg/dL (Negative); Glucose,Urine (UA) Negative (Negative); Ketones,Urine Negative (Negative); Nitrite,Urine Negative (Negative); Urine Urobilinogen 0.2 EU/DL (<2.0)
[2021-12-30 02:18] LABS: Calcium 8.2 MG/DL (8.5-10.1); Osmolality,Calculated 292.1 MOS/KG (273-304); Potassium 3.6 MMOL/L (3.5-5.1)
[2021-12-30 02:24] LABS: ABG Base Excess 2.3 MMOL/L (-2.5-2.5); ABG HCO3 26.4 MMOL/L (20-26); ABG Oxygen Saturation 96.3 % (95-100); ABG PCO2 45.4 MM HG (35-48); ABG PH 7.393 (7.35-7.45); ABG PO2 87.2 MM HG (80-95); ABG TCO2 24.9 MMOL/L (23-27); Allen Test Positive; Pt O2 Delivery Device Ventilator
[2021-12-30 02:25] LABS: Hypochromia 1+; Microcytosis 1+; Platelet Estimate Adequate
[2021-12-30 04:34] LABS: ABG Base Excess 0.6 MMOL/L (-2.5-2.5); ABG HCO3 26.3 MMOL/L (20-26); ABG Oxygen Saturation 96.8 % (95-100); ABG PCO2 46.7 MM HG (35-48); ABG PH 7.368 (7.35-7.45); ABG PO2 94.9 MM HG (80-95); ABG TCO2 27.7 MMOL/L (23-27)
[2021-12-30] MEDS: ACETAMINOPHEN 325 MG TABLET PO PRN ×2 (04:40→14:32)
[2021-12-30] MEDS ORDERED: SODIUM CHLORIDE 0.9% 500 ML IV ONE (05:20)
[2021-12-30] MEDS ORDERED: SODIUM CHLORIDE 0.9% 1,000 ML IV SCH (05:30)
[2021-12-30] MEDS ORDERED: LORazepam 2 MG/1 ML VIAL IV ONE (07:42)
[2021-12-30] MEDS ORDERED: MORPHINE 4 MG/1 ML VIAL IV ONE (08:00)
[2021-12-30] MEDS ORDERED: METOPROLOL TARTRATE 5 MG/5 ML VIAL IV ONE (08:19)
[2021-12-30] MEDS ORDERED: NOREPINEPHRINE 4 MG/4 ML VIAL IV ONE (08:58)
[2021-12-30] MEDS: NOREPINEPHRINE 8 MG in SODIUM CHLORIDE 0.9% 242 ML IV PRN ×2 (09:15→16:00)
[2021-12-30] MEDS: PANTOPRAZOLE 40 MG VIAL IV SCH (09:18)
[2021-12-30] MEDS: POLYETHYLENE GLYCOL POWDER 17 GM PACK PEG SCH (09:18)
[2021-12-30] MEDS: PHENYTOIN 100 MG/4 ML UDCUP PER TUBE SCH ×2 (09:19→21:01)
[2021-12-30] MEDS: methylPREDNISolone SOD SUC 40 MG/1 ML VIAL IV SCH ×2 (09:19→18:32)
[2021-12-30] MEDS: ASPIRIN CHEW 81 MG TABLET PO SCH (09:19)
[2021-12-30] MEDS: DONEPEZIL 10 MG TABLET PEG SCH (09:19)
[2021-12-30] MEDS: SERTRALINE 100 MG TABLET PEG SCH (09:20)
[2021-12-30] MEDS: MULTIVITAMIN LIQUID (CENTRUM) 60 ML BOTTLE PEG SCH (09:22)
[2021-12-30] MEDS ORDERED: MIDAZOLAM 100 MG in SODIUM CHLORIDE 0.9% 80 ML IV PRN (09:27)
[2021-12-30] MEDS ORDERED: LACTATED RINGERS 1,000 ML IV ONE ×2 (10:30→18:03)
[2021-12-30 10:48] LABS: Basophils % 0.2 % (0.0-0.8); Hematocrit 33.3 VOL% (42.0-52.0); Immature Granulocytes % 0.3 %; Immature Granulocytes Absolute 0.05 #; Lymphocytes # 0.8 10*3/uL (1.4-4.0); Lymphocytes % 5.4 % (21.2-54.2); Mean Corpuscular Volume 98.5 FL (87-102); Mean Platelet Volume 11.2 FL (9.6-12.0); Monocytes % 4.5 % (1.7-12.7); Neutrophils % 89.6 % (38.7-73.9); Platelet Count 203 T/CUMM (130-400); Red Blood Count 3.38 MC/CUMM (3.8-5.5); White Blood Count 15.7 T/CUMM (4-12)
[2021-12-30 11:07] LABS: Alanine Aminotransferase 37 U/L (16-61); Albumin 1.7 G/DL (3.4-5.0); Alkaline Phosphatase 105 U/L (45-117); Aspartate Amino Transferase 37 U/L (0-37); Bilirubin,Total < 0.39 MG/DL (0.20-1.00); Blood Urea Nitrogen 27 MG/DL (7-18); Calcium 7.9 MG/DL (8.5-10.1); Carbon Dioxide 27 MMOL/L (21-32); Estimated Glom Filtration Rate 78 ML/MIN; Glucose 133 MG/DL (74-106); Osmolality,Calculated 298.4 MOS/KG (273-304); Potassium 3.9 MMOL/L (3.5-5.1); Sodium 147 MMOL/L (136-145); Total Protein 6.8 G/DL (6.4-8.2)
[2021-12-30 11:20] LABS: Band Neutrophils 53 % (0-10); Lymphocytes 6 % (20-55); Metamyelocytes 4 %; Platelet Estimate Normal; Segmented Neutrophils 35 % (50-85); Total Cells Counted 100
[2021-12-30 11:21] LABS: Anisocytosis 1+; Macrocytosis Slight
[2021-12-30] MEDS: ENOXAPARIN 40 MG/0.4 ML SYRINGE SUBCUT SCH (11:40)
[2021-12-30] MEDS: LACTATED RINGERS 1,000 ML IV SCH ×3 (12:05→22:49)
[2021-12-30] MEDS: MENTHOL/ZINC OXIDE OINT 71 GM JAR TOP SCH ×2 (12:38→21:06)
[2021-12-30] MEDS: levETIRAcetam LIQUID 100 MG/ML 30 ML/BOTTLE PO SCH ×2 (14:26→21:01)
[2021-12-30] MEDS: INSULIN GLARGINE 100 UNIT/ML SUBCUT SCH (21:03)
[2021-12-31] MEDS: INSULIN LISPRO 100 UNIT/ML SUBCUT SCH ×5 (00:30→23:22)
[2021-12-31] MEDS: methylPREDNISolone SOD SUC 40 MG/1 ML VIAL IV SCH ×4 (00:31→23:38)
[2021-12-31] MEDS: ALBUTEROL/IPRATROPIUM 3 ML NEB RESP TX SCH ×4 (00:57→18:11)
[2021-12-31] MEDS: PIPERACILLIN/TAZOBACTAM 3,375 MG in SODIUM CHLORIDE 0.9% 100 ML IV SCH ×3 (01:09→17:54)
[2021-12-31 04:26] LABS: Basophils % 0.1 % (0.0-0.8); Hematocrit 30.9 VOL% (42.0-52.0); Hemoglobin 9.2 GM/DL (14.0-18.0); Immature Granulocytes % 0.2 %; Immature Granulocytes Absolute 0.04 #; Lymphocytes # 0.4 10*3/uL (1.4-4.0); Lymphocytes % 2.5 % (21.2-54.2); Mean Corpuscular HGB Conc 29.8 GM/DL (32-36); Mean Platelet Volume 11.4 FL (9.6-12.0); Monocytes % 1.9 % (1.7-12.7); Neutrophils % 95.3 % (38.7-73.9); Platelet Count 167 T/CUMM (130-400); Red Blood Count 3.12 MC/CUMM (3.8-5.5); Red Cell Distribution Width 14.9 % (9.3-17.3); White Blood Count 17.5 T/CUMM (4-12)
[2021-12-31 04:41] LABS: Osmolality,Calculated 310.6 MOS/KG (273-304); Potassium 3.8 MMOL/L (3.5-5.1)
[2021-12-31 04:50] LABS: Arterial Bicarbonate iSTAT 26.5 MMOL/L (20-26); Arterial pH iSTAT 7.39 (7.35-7.45)
[2021-12-31 04:50] LABS: Band Neutrophils 2 % (0-10); Hypochromia Slight; Lymphocytes 3 % (20-55); Microcytosis Slight; Platelet Estimate Adequate; Segmented Neutrophils 94 % (50-85); Total Cells Counted 100
[2021-12-31 04:50] LABS: Arterial Bicarbonate iSTAT 27.4 MMOL/L (20-26); Arterial pH iSTAT 7.403 (7.35-7.45)
[2021-12-31 04:58] LABS: Arterial Bicarbonate iSTAT 27.8 MMOL/L (20-26); Arterial pH iSTAT 7.396 (7.35-7.45)
[2021-12-31] MEDS: LACTATED RINGERS 1,000 ML IV SCH ×3 (07:35→23:37)
[2021-12-31] MEDS: DONEPEZIL 10 MG TABLET PEG SCH (09:36)
[2021-12-31] MEDS: ASPIRIN CHEW 81 MG TABLET PO SCH (09:37)
[2021-12-31] MEDS: PHENYTOIN 100 MG/4 ML UDCUP PER TUBE SCH ×2 (09:37→20:14)
[2021-12-31] MEDS: POLYETHYLENE GLYCOL POWDER 17 GM PACK PEG SCH (09:37)
[2021-12-31] MEDS: levETIRAcetam LIQUID 100 MG/ML 30 ML/BOTTLE PO SCH ×2 (09:37→20:13)
[2021-12-31] MEDS: ENOXAPARIN 40 MG/0.4 ML SYRINGE SUBCUT SCH (09:37)
[2021-12-31] MEDS: MENTHOL/ZINC OXIDE OINT 71 GM JAR TOP SCH ×2 (09:37→20:14)
[2021-12-31] MEDS: MULTIVITAMIN LIQUID (CENTRUM) 60 ML BOTTLE PEG SCH (09:37)
[2021-12-31] MEDS: SERTRALINE 100 MG TABLET PEG SCH (09:37)
[2021-12-31] MEDS: PANTOPRAZOLE 40 MG VIAL IV SCH (09:37)
[2021-12-31] MEDS: NOREPINEPHRINE 8 MG in SODIUM CHLORIDE 0.9% 242 ML IV PRN (10:31)
[2021-12-31] MEDS: INSULIN GLARGINE 100 UNIT/ML SUBCUT SCH (20:15)
[2022-01-01] MEDS: ALBUTEROL/IPRATROPIUM 3 ML NEB RESP TX SCH ×4 (00:28→19:20)
[2022-01-01] MEDS: PIPERACILLIN/TAZOBACTAM 3,375 MG in SODIUM CHLORIDE 0.9% 100 ML IV SCH ×3 (00:31→17:19)
[2022-01-01 04:22] LABS: Basophils % 0.1 % (0.0-0.8); Hematocrit 28.8 VOL% (42.0-52.0); Hemoglobin 8.6 GM/DL (14.0-18.0); Immature Granulocytes % 0.7 %; Immature Granulocytes Absolute 0.15 #; Lymphocytes # 0.8 10*3/uL (1.4-4.0); Lymphocytes % 3.6 % (21.2-54.2); Mean Corpuscular HGB Conc 29.9 GM/DL (32-36); Mean Corpuscular Volume 100.3 FL (87-102); Mean Platelet Volume 11.5 FL (9.6-12.0); Monocytes % 3.4 % (1.7-12.7); Neutrophils % 92.2 % (38.7-73.9); Platelet Count 156 T/CUMM (130-400); Red Blood Count 2.87 MC/CUMM (3.8-5.5); White Blood Count 21.9 T/CUMM (4-12)
[2022-01-01 04:49] LABS: Band Neutrophils 4 % (0-10); Lymphocytes 5 % (20-55); Segmented Neutrophils 87 % (50-85); Total Cells Counted 100
[2022-01-01 04:50] LABS: Calcium 8.3 MG/DL (8.5-10.1); Osmolality,Calculated 307.4 MOS/KG (273-304); Potassium 3.8 MMOL/L (3.5-5.1)
[2022-01-01 04:51] LABS: Hypochromia 1+
[2022-01-01 04:52] LABS: Microcytosis 1+; Platelet Estimate Adequate
[2022-01-01 04:53] LABS: Arterial Base Excess iSTAT 4 MMOL/L (-2.5-2.5); Arterial Bicarbonate iSTAT 29.5 MMOL/L (20-26); Arterial O2 Saturation iSTAT 100 % (95-100); Arterial PCO2 iSTAT 49 MM HG (35-48); Arterial PO2 iSTAT 194 MM HG (80-95); Arterial Total CO2 iSTAT 31 MMO/L (23-27)
[2022-01-01] MEDS: INSULIN LISPRO 100 UNIT/ML SUBCUT SCH ×4 (05:31→23:26)
[2022-01-01] MEDS: LACTATED RINGERS 1,000 ML IV SCH ×3 (07:51→22:25)
[2022-01-01] MEDS: SERTRALINE 100 MG TABLET PEG SCH (08:32)
[2022-01-01] MEDS: methylPREDNISolone SOD SUC 40 MG/1 ML VIAL IV SCH ×3 (08:32→23:30)
[2022-01-01] MEDS: DONEPEZIL 10 MG TABLET PEG SCH (08:33)
[2022-01-01] MEDS: ASPIRIN CHEW 81 MG TABLET PO SCH (08:33)
[2022-01-01] MEDS: PHENYTOIN 100 MG/4 ML UDCUP PER TUBE SCH ×2 (08:33→20:22)
[2022-01-01] MEDS: ENOXAPARIN 40 MG/0.4 ML SYRINGE SUBCUT SCH (08:33)
[2022-01-01] MEDS: POLYETHYLENE GLYCOL POWDER 17 GM PACK PEG SCH (08:33)
[2022-01-01] MEDS: PANTOPRAZOLE 40 MG VIAL IV SCH (08:36)
[2022-01-01] MEDS: levETIRAcetam LIQUID 100 MG/ML 30 ML/BOTTLE PO SCH ×2 (08:38→20:24)
[2022-01-01] MEDS: MULTIVITAMIN LIQUID (CENTRUM) 60 ML BOTTLE PEG SCH (08:38)
[2022-01-01] MEDS: MENTHOL/ZINC OXIDE OINT 71 GM JAR TOP SCH ×2 (08:41→20:22)
[2022-01-01] MEDS: INSULIN GLARGINE 100 UNIT/ML SUBCUT SCH (20:21)
[2022-01-02] MEDS: PIPERACILLIN/TAZOBACTAM 3,375 MG in SODIUM CHLORIDE 0.9% 100 ML IV SCH ×2 (00:18→10:02)
[2022-01-02] MEDS: ALBUTEROL/IPRATROPIUM 3 ML NEB RESP TX SCH ×4 (00:40→19:47)
[2022-01-02 04:32] LABS: Basophils % 0.1 % (0.0-0.8); Hematocrit 26.8 VOL% (42.0-52.0); Hemoglobin 8.1 GM/DL (14.0-18.0); Immature Granulocytes % 1.1 %; Immature Granulocytes Absolute 0.22 #; Lymphocytes # 0.7 10*3/uL (1.4-4.0); Lymphocytes % 3.3 % (21.2-54.2); Mean Corpuscular HGB Conc 30.2 GM/DL (32-36); Mean Corpuscular Volume 99.3 FL (87-102); Mean Platelet Volume 12.1 FL (9.6-12.0); Monocytes % 3.3 % (1.7-12.7); Neutrophils % 92.2 % (38.7-73.9); Platelet Count 133 T/CUMM (130-400); White Blood Count 20.7 T/CUMM (4-12)
[2022-01-02 04:34] LABS: Calcium 7.3 MG/DL (8.5-10.1); Osmolality,Calculated 313.9 MOS/KG (273-304); Potassium 3.8 MMOL/L (3.5-5.1)
[2022-01-02 04:45] LABS: Folate 5.8 NG/ML (5.38-24.0)
[2022-01-02 05:06] LABS: Band Neutrophils 4 % (0-10); Hypochromia 1+; Lymphocytes 5 % (20-55); Microcytosis 1+; Segmented Neutrophils 89 % (50-85); Total Cells Counted 100
[2022-01-02 05:17] LABS: Arterial Base Excess iSTAT 3 MMOL/L (-2.5-2.5); Arterial Bicarbonate iSTAT 29.3 MMOL/L (20-26); Arterial O2 Saturation iSTAT 90 % (95-100); Arterial PCO2 iSTAT 50 MM HG (35-48); Arterial PO2 iSTAT 61 MM HG (80-95); Arterial Total CO2 iSTAT 31 MMO/L (23-27); Arterial pH iSTAT 7.377 (7.35-7.45)
[2022-01-02] MEDS: INSULIN LISPRO 100 UNIT/ML SUBCUT SCH ×3 (05:54→18:16)
[2022-01-02] MEDS: LACTATED RINGERS 1,000 ML IV SCH (06:00)
[2022-01-02] MEDS ORDERED: FUROSEMIDE 40 MG/4 ML VIAL IV ONE (06:02)
[2022-01-02] MEDS: MULTIVITAMIN LIQUID (CENTRUM) 60 ML BOTTLE PEG SCH (08:45)
[2022-01-02] MEDS: ASPIRIN CHEW 81 MG TABLET PO SCH (08:45)
[2022-01-02] MEDS: methylPREDNISolone SOD SUC 40 MG/1 ML VIAL IV SCH ×2 (08:45→16:31)
[2022-01-02] MEDS: MENTHOL/ZINC OXIDE OINT 71 GM JAR TOP SCH ×2 (08:45→20:27)
[2022-01-02] MEDS: PHENYTOIN 100 MG/4 ML UDCUP PER TUBE SCH ×2 (08:45→20:27)
[2022-01-02] MEDS: POLYETHYLENE GLYCOL POWDER 17 GM PACK PEG SCH (08:45)
[2022-01-02] MEDS: DONEPEZIL 10 MG TABLET PEG SCH (08:45)
[2022-01-02] MEDS: SERTRALINE 100 MG TABLET PEG SCH (08:45)
[2022-01-02] MEDS ORDERED: POTASSIUM PHOSPHATE 30 MMOL in SODIUM CHLORIDE 0.9% 250 ML IV ONE (09:00)
[2022-01-02] MEDS: ENOXAPARIN 40 MG/0.4 ML SYRINGE SUBCUT SCH (10:01)
[2022-01-02] MEDS: PANTOPRAZOLE 40 MG VIAL IV SCH (10:02)
[2022-01-02] MEDS: levETIRAcetam LIQUID 100 MG/ML 30 ML/BOTTLE PO SCH ×2 (10:21→20:31)
[2022-01-02] MEDS: CEFEPIME 1,000 MG in SODIUM CHLORIDE 0.9% 100 ML IV SCH ×2 (11:50→18:15)
[2022-01-02] MEDS ORDERED: VANCOMYCIN 125 MG CAPSULE PO SCH (15:00)
[2022-01-02] MEDS: VANCOMYCIN 50 MG/ML 60 ML/BOTTLE PO SCH ×2 (16:45→17:11)
[2022-01-02] MEDS: INSULIN GLARGINE 100 UNIT/ML SUBCUT SCH (20:27)
[2022-01-02 22:08] VITALS: BP 113/73
[2022-01-03] MEDS: CEFEPIME 1,000 MG in SODIUM CHLORIDE 0.9% 100 ML IV SCH ×5 (00:23→23:16)
[2022-01-03] MEDS: INSULIN LISPRO 100 UNIT/ML SUBCUT SCH ×5 (00:23→23:16)
[2022-01-03] MEDS: VANCOMYCIN 50 MG/ML 60 ML/BOTTLE PO SCH ×5 (00:24→23:16)
[2022-01-03] MEDS: methylPREDNISolone SOD SUC 40 MG/1 ML VIAL IV SCH ×4 (00:24→23:16)
[2022-01-03] MEDS: ALBUTEROL/IPRATROPIUM 3 ML NEB RESP TX SCH ×4 (01:45→19:40)
[2022-01-03 04:21] LABS: Basophils % 0.1 % (0.0-0.8); Hematocrit 28.5 VOL% (42.0-52.0); Hemoglobin 8.6 GM/DL (14.0-18.0); Immature Granulocytes % 1.8 %; Immature Granulocytes Absolute 0.27 #; Lymphocytes # 0.8 10*3/uL (1.4-4.0); Lymphocytes % 5.4 % (21.2-54.2); Mean Corpuscular HGB Conc 30.2 GM/DL (32-36); Mean Corpuscular Volume 96.9 FL (87-102); Mean Platelet Volume 11.5 FL (9.6-12.0); Monocytes % 2.9 % (1.7-12.7); Neutrophils % 89.8 % (38.7-73.9); Platelet Count 127 T/CUMM (130-400); Red Blood Count 2.94 MC/CUMM (3.8-5.5); Red Cell Distribution Width 14.9 % (9.3-17.3); White Blood Count 14.9 T/CUMM (4-12)
[2022-01-03 04:28] LABS: Calcium 7.5 MG/DL (8.5-10.1); Osmolality,Calculated 304.1 MOS/KG (273-304)
[2022-01-03 04:44] LABS: Hypochromia Slight; Platelet Estimate Normal
[2022-01-03] MEDS ORDERED: POTASSIUM PHOSPHATE 15 MMOL in SODIUM CHLORIDE 0.9% 100 ML IV ONE (08:00)
[2022-01-03 08:04] LABS: Arterial Base Excess iSTAT 8 MMOL/L (-2.5-2.5); Arterial Bicarbonate iSTAT 32.3 MMOL/L (20-26); Arterial O2 Saturation iSTAT 99 % (95-100); Arterial PCO2 iSTAT 45 MM HG (35-48); Arterial PO2 iSTAT 114 MM HG (80-95); Arterial Total CO2 iSTAT 34 MMO/L (23-27); Arterial pH iSTAT 7.467 (7.35-7.45)
[2022-01-03] MEDS: PHENYTOIN 100 MG/4 ML UDCUP PER TUBE SCH ×2 (09:16→20:12)
[2022-01-03] MEDS: levETIRAcetam LIQUID 100 MG/ML 30 ML/BOTTLE PO SCH ×2 (09:18→20:13)
[2022-01-03] MEDS: ENOXAPARIN 40 MG/0.4 ML SYRINGE SUBCUT SCH (09:18)
[2022-01-03] MEDS: ASPIRIN CHEW 81 MG TABLET PO SCH (09:19)
[2022-01-03] MEDS: SERTRALINE 100 MG TABLET PEG SCH (09:19)
[2022-01-03] MEDS: MENTHOL/ZINC OXIDE OINT 71 GM JAR TOP SCH ×2 (09:19→20:12)
[2022-01-03] MEDS: POLYETHYLENE GLYCOL POWDER 17 GM PACK PEG SCH (09:19)
[2022-01-03] MEDS: PANTOPRAZOLE 40 MG VIAL IV SCH (09:19)
[2022-01-03] MEDS: DONEPEZIL 10 MG TABLET PEG SCH (09:19)
[2022-01-03] MEDS: MULTIVITAMIN LIQUID (CENTRUM) 60 ML BOTTLE PEG SCH (09:20)
[2022-01-03] MEDS ORDERED: FUROSEMIDE 40 MG/4 ML VIAL IV ONE (09:49)
[2022-01-03] MEDS ORDERED: LORazepam 2 MG/1 ML VIAL IV ONE (19:57)
[2022-01-03] MEDS ORDERED: LORazepam 2 MG/1 ML VIAL ONE (20:00)
[2022-01-03] MEDS: INSULIN GLARGINE 100 UNIT/ML SUBCUT SCH (20:13)
[2022-01-04] MEDS: ALBUTEROL/IPRATROPIUM 3 ML NEB RESP TX SCH ×4 (00:05→19:25)
[2022-01-04] MEDS ORDERED: SODIUM CHLORIDE 0.9% 500 ML IV ONE ×2 (03:17→04:02)
[2022-01-04 04:10] LABS: Basophils % 0.1 % (0.0-0.8); Eosinophils % 0.1 % (0.00-10.9); Hematocrit 26.3 VOL% (42.0-52.0); Hemoglobin 7.8 GM/DL (14.0-18.0); Immature Granulocytes % 1.3 %; Immature Granulocytes Absolute 0.22 #; Mean Corpuscular HGB Conc 29.7 GM/DL (32-36); Mean Corpuscular Volume 97.4 FL (87-102); Mean Platelet Volume 11.8 FL (9.6-12.0); Monocytes % 4.2 % (1.7-12.7); NRBC # 0.04 10*3/uL; Neutrophils % 88.3 % (38.7-73.9); Platelet Count 125 T/CUMM (130-400); Red Cell Distribution Width 15.1 % (9.3-17.3); White Blood Count 16.9 T/CUMM (4-12)
[2022-01-04 04:21] LABS: Calcium 7.5 MG/DL (8.5-10.1); Potassium 3.8 MMOL/L (3.5-5.1)
[2022-01-04 04:36] LABS: Osmolality,Calculated 300.6 MOS/KG (273-304)
[2022-01-04 04:43] LABS: Arterial Bicarbonate iSTAT 30.2 MMOL/L (20-26); Arterial pH iSTAT 7.466 (7.35-7.45)
[2022-01-04] MEDS: INSULIN LISPRO 100 UNIT/ML SUBCUT SCH ×4 (05:56→23:12)
[2022-01-04] MEDS: VANCOMYCIN 50 MG/ML 60 ML/BOTTLE PO SCH ×4 (05:56→23:12)
[2022-01-04] MEDS: CEFEPIME 1,000 MG in SODIUM CHLORIDE 0.9% 100 ML IV SCH ×4 (05:56→23:12)
[2022-01-04] MEDS: PHENYTOIN 100 MG/4 ML UDCUP PER TUBE SCH ×2 (08:05→20:13)
[2022-01-04] MEDS ORDERED: POTASSIUM PHOSPHATE 15 MMOL in SODIUM CHLORIDE 0.9% 100 ML IV ONE (08:32)
[2022-01-04] MEDS: DONEPEZIL 10 MG TABLET PEG SCH (09:08)
[2022-01-04] MEDS: ASPIRIN CHEW 81 MG TABLET PO SCH (09:08)
[2022-01-04] MEDS: MENTHOL/ZINC OXIDE OINT 71 GM JAR TOP SCH ×2 (09:08→20:13)
[2022-01-04] MEDS: MULTIVITAMIN LIQUID (CENTRUM) 60 ML BOTTLE PEG SCH (09:08)
[2022-01-04] MEDS: ENOXAPARIN 40 MG/0.4 ML SYRINGE SUBCUT SCH (09:09)
[2022-01-04] MEDS: levETIRAcetam LIQUID 100 MG/ML 30 ML/BOTTLE PO SCH ×2 (09:09→21:19)
[2022-01-04] MEDS: PANTOPRAZOLE 40 MG VIAL IV SCH (09:09)
[2022-01-04] MEDS: SERTRALINE 100 MG TABLET PEG SCH (09:09)
[2022-01-04] MEDS: metroNIDAZOLE INJ 500 MG/100 ML PREMIX IV SCH ×2 (09:46→16:41)
[2022-01-04] MEDS: INSULIN GLARGINE 100 UNIT/ML SUBCUT SCH (20:13)
[2022-01-04] MEDS: predniSONE 20 MG TABLET PO SCH (21:19)
[2022-01-05] MEDS: ALBUTEROL/IPRATROPIUM 3 ML NEB RESP TX SCH ×4 (00:04→18:14)
[2022-01-05] MEDS: metroNIDAZOLE INJ 500 MG/100 ML PREMIX IV SCH ×3 (00:04→18:18)
[2022-01-05 04:07] LABS: Basophils % 0.1 % (0.0-0.8); Eosinophils % 0.1 % (0.00-10.9); Hemoglobin 7.5 GM/DL (14.0-18.0); Immature Granulocytes % 1.8 %; Immature Granulocytes Absolute 0.27 #; Lymphocytes # 0.9 10*3/uL (1.4-4.0); Lymphocytes % 5.9 % (21.2-54.2); Mean Corpuscular Volume 97.3 FL (87-102); Mean Platelet Volume 12.2 FL (9.6-12.0); Monocytes % 2.5 % (1.7-12.7); Neutrophils % 89.6 % (38.7-73.9); Platelet Count 151 T/CUMM (130-400); Red Blood Count 2.57 MC/CUMM (3.8-5.5); Red Cell Distribution Width 15.1 % (9.3-17.3); White Blood Count 14.7 T/CUMM (4-12)
[2022-01-05 04:14] LABS: ABG HCO3 29.9 MMOL/L (20-26); ABG Oxygen Saturation 99.4 % (95-100); ABG PCO2 43.3 MM HG (35-48); ABG PH 7.456 (7.35-7.45); ABG TCO2 28.3 MMOL/L (23-27)
[2022-01-05 04:22] LABS: Calcium 7.5 MG/DL (8.5-10.1); Osmolality,Calculated 295.6 MOS/KG (273-304); Potassium 4.6 MMOL/L (3.5-5.1)
[2022-01-05] MEDS: INSULIN LISPRO 100 UNIT/ML SUBCUT SCH ×4 (05:04→23:54)
[2022-01-05] MEDS: CEFEPIME 1,000 MG in SODIUM CHLORIDE 0.9% 100 ML IV SCH ×4 (05:39→23:55)
[2022-01-05] MEDS: VANCOMYCIN 50 MG/ML 60 ML/BOTTLE PO SCH ×3 (05:40→18:19)
[2022-01-05] MEDS: MENTHOL/ZINC OXIDE OINT 71 GM JAR TOP SCH ×2 (08:42→20:01)
[2022-01-05] MEDS: ASPIRIN CHEW 81 MG TABLET PO SCH (08:42)
[2022-01-05] MEDS: DONEPEZIL 10 MG TABLET PEG SCH (08:42)
[2022-01-05] MEDS: ENOXAPARIN 40 MG/0.4 ML SYRINGE SUBCUT SCH (08:43)
[2022-01-05] MEDS: MULTIVITAMIN LIQUID (CENTRUM) 60 ML BOTTLE PEG SCH (08:43)
[2022-01-05] MEDS: SERTRALINE 100 MG TABLET PEG SCH (08:43)
[2022-01-05] MEDS: PHENYTOIN 100 MG/4 ML UDCUP PER TUBE SCH ×2 (08:43→20:01)
[2022-01-05] MEDS: levETIRAcetam LIQUID 100 MG/ML 30 ML/BOTTLE PO SCH ×2 (08:43→21:05)
[2022-01-05] MEDS: predniSONE 20 MG TABLET PO SCH ×2 (08:43→21:05)
[2022-01-05] MEDS: PANTOPRAZOLE 40 MG VIAL IV SCH (08:43)
[2022-01-05] MEDS: INSULIN GLARGINE 100 UNIT/ML SUBCUT SCH (20:01)
[2022-01-06] MEDS: metroNIDAZOLE INJ 500 MG/100 ML PREMIX IV SCH ×3 (00:02→17:59)
[2022-01-06] MEDS: VANCOMYCIN 50 MG/ML 60 ML/BOTTLE PO SCH ×4 (00:02→17:59)
[2022-01-06] MEDS: ALBUTEROL/IPRATROPIUM 3 ML NEB RESP TX SCH ×4 (00:03→18:12)
[2022-01-06 03:47] LABS: Eosinophils % 0.1 % (0.00-10.9); Hematocrit 25.4 VOL% (42.0-52.0); Hemoglobin 7.9 GM/DL (14.0-18.0); Immature Granulocytes % 1.8 %; Immature Granulocytes Absolute 0.26 #; Lymphocytes # 0.9 10*3/uL (1.4-4.0); Lymphocytes % 5.9 % (21.2-54.2); Mean Corpuscular HGB Conc 31.1 GM/DL (32-36); Mean Corpuscular Volume 96.2 FL (87-102); Mean Platelet Volume 11.1 FL (9.6-12.0); Monocytes % 2.2 % (1.7-12.7); Platelet Count 183 T/CUMM (130-400); Red Blood Count 2.64 MC/CUMM (3.8-5.5); Red Cell Distribution Width 14.9 % (9.3-17.3); White Blood Count 14.3 T/CUMM (4-12)
[2022-01-06 03:55] LABS: ABG Base Excess 6.7 MMOL/L (-2.5-2.5); ABG HCO3 30.6 MMOL/L (20-26); ABG PCO2 41.1 MM HG (35-48); ABG PH 7.483 (7.35-7.45)
[2022-01-06 04:07] LABS: Calcium 7.6 MG/DL (8.5-10.1); Osmolality,Calculated 298.8 MOS/KG (273-304); Potassium 4.8 MMOL/L (3.5-5.1)
[2022-01-06] MEDS: CEFEPIME 1,000 MG in SODIUM CHLORIDE 0.9% 100 ML IV SCH (05:24)
[2022-01-06] MEDS: INSULIN LISPRO 100 UNIT/ML SUBCUT SCH ×3 (05:36→17:59)
[2022-01-06] MEDS: PHENYTOIN 100 MG/4 ML UDCUP PER TUBE SCH ×2 (09:14→21:56)
[2022-01-06] MEDS: PANTOPRAZOLE 40 MG VIAL IV SCH (09:14)
[2022-01-06] MEDS: DONEPEZIL 10 MG TABLET PEG SCH (09:14)
[2022-01-06] MEDS: predniSONE 20 MG TABLET PO SCH ×2 (09:14→21:56)
[2022-01-06] MEDS: MENTHOL/ZINC OXIDE OINT 71 GM JAR TOP SCH ×2 (09:14→21:57)
[2022-01-06] MEDS: MULTIVITAMIN LIQUID (CENTRUM) 60 ML BOTTLE PEG SCH (09:14)
[2022-01-06] MEDS: ENOXAPARIN 40 MG/0.4 ML SYRINGE SUBCUT SCH (09:14)
[2022-01-06] MEDS: levETIRAcetam LIQUID 100 MG/ML 30 ML/BOTTLE PO SCH ×2 (09:14→21:57)
[2022-01-06] MEDS: ASPIRIN CHEW 81 MG TABLET PO SCH (09:14)
[2022-01-06] MEDS: SERTRALINE 100 MG TABLET PEG SCH (09:15)
[2022-01-06] MEDS ORDERED: CALCIUM CHLORIDE 1,000 MG/10 ML SYRINGE IV ONE (19:10)
[2022-01-06] MEDS: INSULIN GLARGINE 100 UNIT/ML SUBCUT SCH (21:56)
[2022-01-07] MEDS: ALBUTEROL/IPRATROPIUM 3 ML NEB RESP TX SCH ×4 (00:35→19:40)
[2022-01-07] MEDS: metroNIDAZOLE INJ 500 MG/100 ML PREMIX IV SCH ×2 (00:51→14:28)
[2022-01-07] MEDS: INSULIN LISPRO 100 UNIT/ML SUBCUT SCH ×4 (00:54→18:29)
[2022-01-07] MEDS: VANCOMYCIN 50 MG/ML 60 ML/BOTTLE PO SCH ×4 (00:55→18:30)
[2022-01-07 04:44] LABS: ABG Base Excess 5.7 MMOL/L (-2.5-2.5); ABG HCO3 29.6 MMOL/L (20-26); ABG Oxygen Saturation 98.2 % (95-100); ABG PCO2 43.4 MM HG (35-48); ABG PH 7.451 (7.35-7.45); ABG TCO2 27.7 MMOL/L (23-27)
[2022-01-07 04:48] LABS: Basophils % 0.1 % (0.0-0.8); Eosinophils % 0.1 % (0.00-10.9); Hematocrit 27.9 VOL% (42.0-52.0); Hemoglobin 8.6 GM/DL (14.0-18.0); Immature Granulocytes % 1.8 %; Immature Granulocytes Absolute 0.26 #; Lymphocytes # 0.8 10*3/uL (1.4-4.0); Lymphocytes % 5.8 % (21.2-54.2); Mean Corpuscular HGB Conc 30.8 GM/DL (32-36); Mean Corpuscular Volume 93.9 FL (87-102); Mean Platelet Volume 11.7 FL (9.6-12.0); Neutrophils % 90.2 % (38.7-73.9); Platelet Count 256 T/CUMM (130-400); Red Blood Count 2.97 MC/CUMM (3.8-5.5); Red Cell Distribution Width 14.7 % (9.3-17.3); White Blood Count 14.2 T/CUMM (4-12)
[2022-01-07 05:09] LABS: Calcium 7.6 MG/DL (8.5-10.1); Osmolality,Calculated 290.1 MOS/KG (273-304); Potassium 4.5 MMOL/L (3.5-5.1)
[2022-01-07] MEDS: ENOXAPARIN 40 MG/0.4 ML SYRINGE SUBCUT SCH (09:12)
[2022-01-07] MEDS: PANTOPRAZOLE 40 MG VIAL IV SCH (09:13)
[2022-01-07] MEDS: MULTIVITAMIN LIQUID (CENTRUM) 60 ML BOTTLE PEG SCH (09:14)
[2022-01-07] MEDS: PHENYTOIN 100 MG/4 ML UDCUP PER TUBE SCH ×2 (09:15→21:06)
[2022-01-07] MEDS: levETIRAcetam LIQUID 100 MG/ML 30 ML/BOTTLE PO SCH ×2 (09:15→21:06)
[2022-01-07] MEDS: ASPIRIN CHEW 81 MG TABLET PO SCH (09:16)
[2022-01-07] MEDS: predniSONE 20 MG TABLET PO SCH ×2 (09:16→21:06)
[2022-01-07] MEDS: SERTRALINE 100 MG TABLET PEG SCH (09:16)
[2022-01-07] MEDS: DONEPEZIL 10 MG TABLET PEG SCH (09:16)
[2022-01-07] MEDS: MENTHOL/ZINC OXIDE OINT 71 GM JAR TOP SCH ×2 (09:41→21:08)
[2022-01-07] MEDS: ATORVASTATIN 80 MG TABLET PEG SCH (21:06)
[2022-01-07] MEDS: INSULIN GLARGINE 100 UNIT/ML SUBCUT SCH (21:07)
[2022-01-08] MEDS: ALBUTEROL/IPRATROPIUM 3 ML NEB RESP TX SCH ×4 (00:02→19:11)
[2022-01-08] MEDS: INSULIN LISPRO 100 UNIT/ML SUBCUT SCH ×4 (00:15→18:30)
[2022-01-08] MEDS: VANCOMYCIN 50 MG/ML 60 ML/BOTTLE PO SCH ×4 (00:15→18:30)
[2022-01-08 04:55] LABS: Basophils % 0.1 % (0.0-0.8); Hematocrit 28.9 VOL% (42.0-52.0); Hemoglobin 9.1 GM/DL (14.0-18.0); Immature Granulocytes % 1.4 %; Immature Granulocytes Absolute 0.24 #; Lymphocytes % 5.7 % (21.2-54.2); Mean Corpuscular HGB Conc 31.5 GM/DL (32-36); Mean Corpuscular Volume 95.4 FL (87-102); Mean Platelet Volume 11.3 FL (9.6-12.0); Monocytes % 2.8 % (1.7-12.7); Platelet Count 289 T/CUMM (130-400); Red Blood Count 3.03 MC/CUMM (3.8-5.5); Red Cell Distribution Width 14.9 % (9.3-17.3); White Blood Count 17.3 T/CUMM (4-12)
[2022-01-08 05:16] LABS: Calcium 8.1 MG/DL (8.5-10.1); Osmolality,Calculated 281.4 MOS/KG (273-304); Potassium 4.3 MMOL/L (3.5-5.1)
[2022-01-08] MEDS: SERTRALINE 100 MG TABLET PEG SCH (09:26)
[2022-01-08] MEDS: PANTOPRAZOLE 40 MG VIAL IV SCH (09:27)
[2022-01-08] MEDS: DONEPEZIL 10 MG TABLET PEG SCH (09:27)
[2022-01-08] MEDS: PHENYTOIN 100 MG/4 ML UDCUP PER TUBE SCH ×2 (09:27→21:49)
[2022-01-08] MEDS: ASPIRIN CHEW 81 MG TABLET PO SCH (09:27)
[2022-01-08] MEDS: ENOXAPARIN 40 MG/0.4 ML SYRINGE SUBCUT SCH (09:28)
[2022-01-08] MEDS: levETIRAcetam LIQUID 100 MG/ML 30 ML/BOTTLE PO SCH ×2 (09:29→21:49)
[2022-01-08] MEDS: MENTHOL/ZINC OXIDE OINT 71 GM JAR TOP SCH ×2 (09:50→21:49)
[2022-01-08] MEDS: predniSONE 20 MG TABLET PO SCH ×2 (10:00→21:49)
[2022-01-08] MEDS: MULTIVITAMIN LIQUID (CENTRUM) 60 ML BOTTLE PEG SCH (13:30)
[2022-01-08] MEDS: INSULIN GLARGINE 100 UNIT/ML SUBCUT SCH (21:49)
[2022-01-08] MEDS: ATORVASTATIN 80 MG TABLET PEG SCH (21:49)
[2022-01-09] MEDS: ALBUTEROL/IPRATROPIUM 3 ML NEB RESP TX SCH ×2 (00:19→07:35)
[2022-01-09] MEDS: INSULIN LISPRO 100 UNIT/ML SUBCUT SCH ×3 (00:26→13:11)
[2022-01-09] MEDS: VANCOMYCIN 50 MG/ML 60 ML/BOTTLE PO SCH ×3 (00:26→13:11)
[2022-01-09 04:39] LABS: Basophils % 0.1 % (0.0-0.8); Hematocrit 26.1 VOL% (42.0-52.0); Hemoglobin 8.1 GM/DL (14.0-18.0); Immature Granulocytes % 1.1 %; Immature Granulocytes Absolute 0.14 #; Lymphocytes # 0.7 10*3/uL (1.4-4.0); Lymphocytes % 5.8 % (21.2-54.2); Mean Platelet Volume 11.1 FL (9.6-12.0); Monocytes % 2.6 % (1.7-12.7); Neutrophils % 90.4 % (38.7-73.9); Platelet Count 275 T/CUMM (130-400); Red Blood Count 2.72 MC/CUMM (3.8-5.5); Red Cell Distribution Width 14.7 % (9.3-17.3); White Blood Count 12.3 T/CUMM (4-12)
[2022-01-09 04:55] LABS: Potassium 4.8 MMOL/L (3.5-5.1)
[2022-01-09 05:02] LABS: Osmolality,Calculated 284.5 MOS/KG (273-304)
[2022-01-09] MEDS: MULTIVITAMIN LIQUID (CENTRUM) 60 ML BOTTLE PEG SCH (08:37)
[2022-01-09] MEDS: ASPIRIN CHEW 81 MG TABLET PO SCH (08:37)
[2022-01-09] MEDS: DONEPEZIL 10 MG TABLET PEG SCH (08:37)
[2022-01-09] MEDS: PHENYTOIN 100 MG/4 ML UDCUP PER TUBE SCH (08:37)
[2022-01-09] MEDS: MENTHOL/ZINC OXIDE OINT 71 GM JAR TOP SCH (08:37)
[2022-01-09] MEDS: levETIRAcetam LIQUID 100 MG/ML 30 ML/BOTTLE PO SCH (08:38)
[2022-01-09] MEDS: PANTOPRAZOLE 40 MG VIAL IV SCH (08:38)
[2022-01-09] MEDS: SERTRALINE 100 MG TABLET PEG SCH (08:38)
[2022-01-09] MEDS: ENOXAPARIN 40 MG/0.4 ML SYRINGE SUBCUT SCH (08:38)
[2022-01-09] MEDS: predniSONE 20 MG TABLET PO SCH (08:38)
== END 2022-01-09 14:00 | DRG 207 ==
LOC: EDBD → EDUNIT# → N.ED 14:19 → SUATTDRO 17:53 → N.3E 17:53 → N.ICU 12-30 00:40
PROVIDERS: ADMIT Hospitalist; ATTEND Hospitalist

== ENCOUNTER 2022-03-07 10:06 | Inpatient (IN) ==
[2022-03-07] MEDS ORDERED: methylPREDNISolone SOD SUC 125 MG/2 ML VIAL IV STA (10:31)
[2022-03-07] MEDS ORDERED: PIPERACILLIN/TAZOBACTAM 3,375 MG in SODIUM CHLORIDE 0.9% 100 ML IV STA (10:31)
[2022-03-07] MEDS ORDERED: ALBUTEROL NEB SOLN 5 MG/ML 20 ML/BOTTLE CONT NEB SCH (11:00)
[2022-03-07 11:10] LABS: Basophils # 0.1 10*3/uL (0.0-0.2); Basophils % 0.3 % (0.0-0.8); Eosinophils # 0.3 10*3/uL (0.0-0.87); Eosinophils % 1.3 % (0.00-10.9); Hemoglobin 11.1 GM/DL (14.0-18.0); Immature Granulocytes % 0.8 %; Immature Granulocytes Absolute 0.16 #; Lymphocytes # 3.6 10*3/uL (1.4-4.0); Lymphocytes % 18.2 % (21.2-54.2); Mean Corpuscular Volume 101.1 FL (87-102); Mean Platelet Volume 12.2 FL (9.6-12.0); Monocytes # 0.8 10*3/uL (0.11-0.8); NRBC # 0.03 10*3/uL; Neutrophils % 75.4 % (38.7-73.9); Platelet Count 223 T/CUMM (130-400); Red Blood Count 3.66 MC/CUMM (3.8-5.5); Red Cell Distribution Width 13.3 % (9.3-17.3); White Blood Count 19.6 T/CUMM (4-12)
[2022-03-07 11:32] LABS: Alanine Aminotransferase 84 U/L (16-61); Albumin 2.3 G/DL (3.4-5.0); Alkaline Phosphatase 229 U/L (45-117); Aspartate Amino Transferase 111 U/L (0-37); Bilirubin,Total < 0.39 MG/DL (0.20-1.00); Blood Urea Nitrogen 42 MG/DL (7-18); Calcium 9.8 MG/DL (8.5-10.1); Carbon Dioxide 29 MMOL/L (21-32); Chloride 114 MMOL/L (98-107); Glucose 249 MG/DL (74-106); Osmolality,Calculated 312.3 MOS/KG (273-304); Sodium 148 MMOL/L (136-145); Total Protein 10.3 G/DL (6.4-8.2)
[2022-03-07] MEDS ORDERED: SODIUM CHLORIDE 0.9% 1,000 ML IV STA (12:04)
[2022-03-07 13:45] LABS: Arterial Base Excess iSTAT 3 MMOL/L (-2.5-2.5); Arterial Bicarbonate iSTAT 29.2 MMOL/L (20-26); Arterial O2 Saturation iSTAT 94 % (95-100); Arterial PCO2 iSTAT 50 MM HG (35-48); Arterial PO2 iSTAT 72 MM HG (80-95); Arterial Total CO2 iSTAT 31 MMO/L (23-27); Arterial pH iSTAT 7.376 (7.35-7.45)
[2022-03-07] MEDS ORDERED: ETOMIDATE 20 MG/10 ML VIAL IV ONE ×3 (14:42→15:10)
[2022-03-07] MEDS ORDERED: SUCCINYLCHOLINE 200 MG/10 ML VIAL ONE (14:44)
[2022-03-07] MEDS ORDERED: ALBUTEROL 2.5 MG/3 ML NEB RESP TX PRN (14:50)
[2022-03-07] MEDS ORDERED: SUCCINYLCHOLINE 200 MG/10 ML VIAL IV ONE (15:10)
[2022-03-07] MEDS: PANTOPRAZOLE 40 MG VIAL IV SCH (15:47)
[2022-03-07] MEDS: ENOXAPARIN 40 MG/0.4 ML SYRINGE SUBCUT SCH (15:47)
[2022-03-07] MEDS: MIDAZOLAM 100 MG in SODIUM CHLORIDE 0.9% 80 ML IV PRN (15:47)
[2022-03-07] MEDS: SODIUM CHLORIDE 0.45% 1,000 ML IV SCH (15:48)
[2022-03-07 16:07] LABS: Arterial Base Excess iSTAT 1 MMOL/L (-2.5-2.5); Arterial Bicarbonate iSTAT 26.8 MMOL/L (20-26); Arterial O2 Saturation iSTAT 99 % (95-100); Arterial PCO2 iSTAT 49 MM HG (35-48); Arterial PO2 iSTAT 171 MM HG (80-95); Arterial Total CO2 iSTAT 28 MMO/L (23-27); Arterial pH iSTAT 7.346 (7.35-7.45)
[2022-03-07] MEDS ORDERED: DIGOXIN 0.5 MG/2 ML AMP IV ONE ×2 (17:04→17:30)
[2022-03-07] MEDS ORDERED: SODIUM CHLORIDE 0.9% 1,000 ML IV ONE (17:30)
[2022-03-07] MEDS: IBUPROFEN 100 MG/5 ML UDCUP PO PRN ×2 (17:38→23:59)
[2022-03-07 18:06] LABS: Bilirubin,Urine Negative (Negative); Glucose,Urine (UA) Negative (Negative); Ketones,Urine Trace mg/dL (Negative); Nitrite,Urine Negative (Negative); Protein,Urine >=300 mg/dL (Negative); Urine Appearance Clear (Clear); Urine Color Yellow (Yellow); Urine pH 7.5 (4.5-8.0)
[2022-03-07 18:07] LABS: Blood, Urine Trace mg/dL (Negative); Urine Urobilinogen 0.2 eU/dL (<2.0)
[2022-03-07 18:10] LABS: Bacteria,Urine Occasional /HPF (Few); Hyaline Casts,Urine 3 /LPF (0-3); Mucus,Urine Occasional /LPF (Occasional); RBC,Urine 7 /HPF (0-4); Squamous Epithelial Cell,Urine Occasional /HPF (0-10)
[2022-03-07] MEDS: PHENYLEPHRINE DRIP 40 MG/250 ML PREMIX IV PRN (20:38)
[2022-03-07] MEDS: cefTRIAXone 1,000 MG in SODIUM CHLORIDE 0.9% 100 ML IV SCH (20:42)
[2022-03-08] MEDS: SODIUM CHLORIDE 0.45% 1,000 ML IV SCH ×4 (02:00→21:30)
[2022-03-08 03:27] LABS: Basophils % 0.1 % (0.0-0.8); Hematocrit 29.1 VOL% (42.0-52.0); Immature Granulocytes % 0.5 %; Immature Granulocytes Absolute 0.15 #; Lymphocytes % 6.7 % (21.2-54.2); Mean Corpuscular HGB Conc 28.9 GM/DL (32-36); Mean Corpuscular Volume 105.8 FL (87-102); Mean Platelet Volume 11.7 FL (9.6-12.0); Monocytes % 3.3 % (1.7-12.7); NRBC # 0.06 10*3/uL; Neutrophils % 89.4 % (38.7-73.9); Platelet Count 203 T/CUMM (130-400); Red Cell Distribution Width 13.9 % (9.3-17.3)
[2022-03-08 03:30] LABS: Calcium 7.9 MG/DL (8.5-10.1); Osmolality,Calculated 323.7 MOS/KG (273-304)
[2022-03-08 03:32] LABS: Hemoglobin 8.4 GM/DL (14.0-18.0); Red Blood Count 2.75 MC/CUMM (3.8-5.5); White Blood Count 29.5 T/CUMM (4-12)
[2022-03-08 04:05] LABS: Band Neutrophils 11 % (0-10); Eosinophils 1 % (0-10); Lymphocytes 10 % (20-55); Macrocytosis Slight; Metamyelocytes 5 %; Total Cells Counted 100
[2022-03-08 04:07] LABS: Platelet Estimate Normal; Polychromasia Slight
[2022-03-08 04:09] LABS: Rouleau Slight
[2022-03-08 04:51] LABS: ABG Base Excess -2.2 MMOL/L (-2.5-2.5); ABG HCO3 22.6 MMOL/L (20-26); ABG Oxygen Saturation 99.8 % (95-100); ABG PCO2 53.7 MM HG (35-48); ABG PH 7.277 (7.35-7.45); ABG TCO2 23.3 MMOL/L (23-27)
[2022-03-08] MEDS: PHENYLEPHRINE DRIP 40 MG/250 ML PREMIX IV PRN ×3 (05:58→21:41)
[2022-03-08] MEDS: MIDAZOLAM 100 MG in SODIUM CHLORIDE 0.9% 80 ML IV PRN (11:52)
[2022-03-08] MEDS ORDERED: GLUCAGON 1 MG VIAL IM PRN (13:34)
[2022-03-08] MEDS: IBUPROFEN 100 MG/5 ML UDCUP PO PRN (14:18)
[2022-03-08] MEDS: PANTOPRAZOLE 40 MG VIAL IV SCH (15:35)
[2022-03-08] MEDS: ENOXAPARIN 40 MG/0.4 ML SYRINGE SUBCUT SCH (15:35)
[2022-03-08] MEDS: MORPHINE 2 MG/1 ML SYRINGE IV PRN ×2 (15:53→22:03)
[2022-03-08] MEDS ORDERED: ACETAMINOPHEN 325 MG/10.15 ML UDCUP PEG PRN (16:48)
[2022-03-08] MEDS: LEVOFLOXACIN INJ 500 MG/100 ML PREMIX IV SCH (18:00)
[2022-03-08] MEDS: cefTRIAXone 1,000 MG in SODIUM CHLORIDE 0.9% 100 ML IV SCH (20:57)
[2022-03-08] MEDS: fentaNYL INJ 1,250 MCG in SODIUM CHLORIDE 0.9% 225 ML IV PRN (22:12)
[2022-03-09] MEDS: SODIUM CHLORIDE 0.45% 1,000 ML IV SCH ×2 (00:56→10:32)
[2022-03-09] MEDS: MIDAZOLAM 100 MG in SODIUM CHLORIDE 0.9% 80 ML IV PRN ×2 (00:57→13:01)
[2022-03-09 03:45] LABS: Basophils # 0.1 10*3/uL (0.0-0.2); Basophils % 0.2 % (0.0-0.8); Eosinophils # 0.2 10*3/uL (0.0-0.87); Eosinophils % 0.6 % (0.00-10.9); Hematocrit 28.9 VOL% (42.0-52.0); Hemoglobin 8.5 GM/DL (14.0-18.0); Immature Granulocytes % 2.3 %; Immature Granulocytes Absolute 0.62 #; Lymphocytes # 1.3 10*3/uL (1.4-4.0); Lymphocytes % 4.7 % (21.2-54.2); Mean Corpuscular HGB Conc 29.4 GM/DL (32-36); Mean Corpuscular Volume 103.6 FL (87-102); Monocytes # 0.7 10*3/uL (0.11-0.8); Monocytes % 2.4 % (1.7-12.7); Neutrophils % 89.8 % (38.7-73.9); Red Blood Count 2.79 MC/CUMM (3.8-5.5); Red Cell Distribution Width 13.7 % (9.3-17.3); White Blood Count 26.8 T/CUMM (4-12)
[2022-03-09 03:46] LABS: Platelet Count 152 T/CUMM (130-400)
[2022-03-09 03:55] LABS: Calcium 8.1 MG/DL (8.5-10.1); Osmolality,Calculated 312.3 MOS/KG (273-304)
[2022-03-09 03:59] LABS: Band Neutrophils 4 % (0-10); Hypochromia Slight; Lymphocytes 2 % (20-55); Platelet Estimate Adequate; Total Cells Counted 100
[2022-03-09 04:18] LABS: ABG HCO3 24.5 MMOL/L (20-26); ABG Oxygen Saturation 98.3 % (95-100); ABG PCO2 50.7 MM HG (35-48); ABG PH 7.328 (7.35-7.45); ABG TCO2 24.4 MMOL/L (23-27); Allen Test Positive; Pt O2 Delivery Device Ventilator
[2022-03-09] MEDS: PHENYLEPHRINE DRIP 40 MG/250 ML PREMIX IV PRN ×2 (05:25→13:40)
[2022-03-09] MEDS: ONDANSETRON 4 MG/2 ML VIAL IV PRN (06:35)
[2022-03-09] MEDS ORDERED: LACTATED RINGERS 1,000 ML IV ONE (10:21)
[2022-03-09] MEDS: fentaNYL INJ 1,250 MCG in SODIUM CHLORIDE 0.9% 225 ML IV PRN ×2 (10:42→20:02)
[2022-03-09] MEDS: METOCLOPRAMIDE 10 MG/2 ML VIAL IV SCH ×3 (11:18→23:50)
[2022-03-09] MEDS: POLYETHYLENE GLYCOL POWDER 17 GM PACK PEG SCH (11:18)
[2022-03-09] MEDS ORDERED: ALBUTEROL/IPRATROPIUM 3 ML NEB RESP TX ONE (11:29)
[2022-03-09] MEDS: ENOXAPARIN 80 MG/0.8 ML SYRINGE SUBCUT SCH ×2 (12:16→23:50)
[2022-03-09] MEDS: ALBUTEROL/IPRATROPIUM 3 ML NEB RESP TX SCH ×2 (13:05→19:03)
[2022-03-09] MEDS: ZINC OXIDE PASTE 113 GM TUBE TOP SCH ×2 (14:54→20:19)
[2022-03-09] MEDS: PANTOPRAZOLE 40 MG VIAL IV SCH (14:54)
[2022-03-09] MEDS: LEVOFLOXACIN INJ 500 MG/100 ML PREMIX IV SCH (17:14)
[2022-03-09] MEDS: levETIRAcetam LIQUID 100 MG/ML 30 ML/BOTTLE PEG SCH (20:19)
[2022-03-09] MEDS: PHENYTOIN 100 MG/4 ML UDCUP PER TUBE SCH (20:19)
[2022-03-09] MEDS: ATORVASTATIN 80 MG TABLET PEG SCH (20:19)
[2022-03-09] MEDS: cefTRIAXone 1,000 MG in SODIUM CHLORIDE 0.9% 100 ML IV SCH (20:20)
[2022-03-10] MEDS: ALBUTEROL/IPRATROPIUM 3 ML NEB RESP TX SCH ×4 (00:14→19:11)
[2022-03-10] MEDS: PHENYLEPHRINE DRIP 40 MG/250 ML PREMIX IV PRN (00:39)
[2022-03-10 03:32] LABS: Basophils # 0.1 10*3/uL (0.0-0.2); Basophils % 0.2 % (0.0-0.8); Eosinophils # 0.3 10*3/uL (0.0-0.87); Eosinophils % 1.5 % (0.00-10.9); Hematocrit 23.7 VOL% (42.0-52.0); Immature Granulocytes % 1.5 %; Immature Granulocytes Absolute 0.34 #; Lymphocytes # 1.3 10*3/uL (1.4-4.0); Lymphocytes % 5.5 % (21.2-54.2); Mean Corpuscular HGB Conc 29.5 GM/DL (32-36); Mean Corpuscular Volume 102.2 FL (87-102); Mean Platelet Volume 11.8 FL (9.6-12.0); Monocytes # 0.5 10*3/uL (0.11-0.8); Monocytes % 2.3 % (1.7-12.7); Platelet Count 146 T/CUMM (130-400); Red Blood Count 2.32 MC/CUMM (3.8-5.5); Red Cell Distribution Width 13.5 % (9.3-17.3); White Blood Count 23.1 T/CUMM (4-12)
[2022-03-10] MEDS: MIDAZOLAM 100 MG in SODIUM CHLORIDE 0.9% 80 ML IV PRN ×2 (03:45→17:51)
[2022-03-10 03:46] LABS: Calcium 8.4 MG/DL (8.5-10.1); Osmolality,Calculated 309.9 MOS/KG (273-304); Potassium 3.9 MMOL/L (3.5-5.1)
[2022-03-10 04:02] LABS: Free T4 (Free Thyroxine) 1.04 NG/DL (0.76-1.46); Thyroid Stimulating Hormone 4.33 uIU/ml (0.358-3.74)
[2022-03-10 04:10] LABS: Arterial Base Excess iSTAT 1 MMOL/L (-2.5-2.5); Arterial Bicarbonate iSTAT 26.1 MMOL/L (20-26); Arterial O2 Saturation iSTAT 98 % (95-100); Arterial PCO2 iSTAT 43 MM HG (35-48); Arterial PO2 iSTAT 100 MM HG (80-95); Arterial Total CO2 iSTAT 27 MMO/L (23-27); Arterial pH iSTAT 7.392 (7.35-7.45)
[2022-03-10 04:12] LABS: Band Neutrophils 1 % (0-10); Eosinophils 1 % (0-10); Hypochromia Slight; Lymphocytes 2 % (20-55); Platelet Estimate Adequate; Total Cells Counted 100
[2022-03-10] MEDS: fentaNYL INJ 1,250 MCG in SODIUM CHLORIDE 0.9% 225 ML IV PRN ×2 (05:01→14:27)
[2022-03-10 05:20] LABS: Folate > 24.00 NG/ML (5.38-24.0); Vitamin B12 1249 PG/ML (211-911)
[2022-03-10] MEDS: METOCLOPRAMIDE 10 MG/2 ML VIAL IV SCH ×3 (05:36→17:47)
[2022-03-10] MEDS: levETIRAcetam LIQUID 100 MG/ML 30 ML/BOTTLE PEG SCH ×2 (09:16→20:22)
[2022-03-10] MEDS: PHENYTOIN 100 MG/4 ML UDCUP PER TUBE SCH ×2 (09:16→20:17)
[2022-03-10] MEDS: DONEPEZIL 10 MG TABLET PEG SCH (09:16)
[2022-03-10] MEDS: SERTRALINE 100 MG TABLET PEG SCH (09:16)
[2022-03-10] MEDS: ZINC OXIDE PASTE 113 GM TUBE TOP SCH ×2 (09:16→20:20)
[2022-03-10] MEDS: ENOXAPARIN 80 MG/0.8 ML SYRINGE SUBCUT SCH (12:18)
[2022-03-10] MEDS: HYDROCORTISONE 100 MG VIAL IV SCH ×2 (12:18→20:18)
[2022-03-10 14:45] LABS: Hematocrit 23.9 VOL% (42.0-52.0); Hemoglobin 7.3 GM/DL (14.0-18.0)
[2022-03-10] MEDS: PANTOPRAZOLE 40 MG VIAL IV SCH (14:58)
[2022-03-10 15:02] LABS: Calcium 8.7 MG/DL (8.5-10.1); Osmolality,Calculated 309.9 MOS/KG (273-304)
[2022-03-10] MEDS: FENTANYL IV PRN (16:11)
[2022-03-10] MEDS: DEXTROSE 5% IV PRN (16:11)
[2022-03-10] MEDS: LEVOFLOXACIN INJ 500 MG/100 ML PREMIX IV SCH (17:49)
[2022-03-10] MEDS: ATORVASTATIN 80 MG TABLET PEG SCH (20:18)
[2022-03-10] MEDS: cefTRIAXone 1,000 MG in SYRINGE 1 EACH IV SCH (20:19)
[2022-03-11] MEDS: ALBUTEROL/IPRATROPIUM 3 ML NEB RESP TX SCH ×4 (00:50→19:27)
[2022-03-11] MEDS: ENOXAPARIN 80 MG/0.8 ML SYRINGE SUBCUT SCH ×2 (01:11→11:57)
[2022-03-11] MEDS: METOCLOPRAMIDE 10 MG/2 ML VIAL IV SCH ×4 (01:11→17:22)
[2022-03-11 03:06] LABS: Arterial Base Excess iSTAT -3 MMOL/L (-2.5-2.5); Arterial Bicarbonate iSTAT 22.5 MMOL/L (20-26); Arterial O2 Saturation iSTAT 97 % (95-100); Arterial PCO2 iSTAT 41 MM HG (35-48); Arterial PO2 iSTAT 94 MM HG (80-95); Arterial Total CO2 iSTAT 24 MMO/L (23-27); Arterial pH iSTAT 7.353 (7.35-7.45)
[2022-03-11 03:43] LABS: Basophils % 0.1 % (0.0-0.8); Hematocrit 23.5 VOL% (42.0-52.0); Immature Granulocytes % 0.7 %; Immature Granulocytes Absolute 0.13 #; Lymphocytes # 0.7 10*3/uL (1.4-4.0); Lymphocytes % 3.6 % (21.2-54.2); Mean Corpuscular HGB Conc 29.8 GM/DL (32-36); Mean Corpuscular Volume 102.6 FL (87-102); Monocytes # 0.2 10*3/uL (0.11-0.8); Neutrophils % 94.6 % (38.7-73.9); Platelet Count 146 T/CUMM (130-400); Red Blood Count 2.29 MC/CUMM (3.8-5.5); Red Cell Distribution Width 13.3 % (9.3-17.3); White Blood Count 17.9 T/CUMM (4-12)
[2022-03-11 04:02] LABS: Hypochromia Slight; Lymphocytes 5 % (20-55); Microcytosis Slight; Platelet Estimate Adequate; Total Cells Counted 100
[2022-03-11 04:08] LABS: Alanine Aminotransferase 25 U/L (16-61); Albumin 1.5 G/DL (3.4-5.0); Alkaline Phosphatase 140 U/L (45-117); Aspartate Amino Transferase 27 U/L (0-37); Bilirubin,Total < 0.39 MG/DL (0.20-1.00); Blood Urea Nitrogen 54 MG/DL (7-18); Calcium 8.5 MG/DL (8.5-10.1); Carbon Dioxide 23 MMOL/L (21-32); Chloride 118 MMOL/L (98-107); Glucose 232 MG/DL (74-106); Osmolality,Calculated 311.6 MOS/KG (273-304); Potassium 4.7 MMOL/L (3.5-5.1); Sodium 146 MMOL/L (136-145)
[2022-03-11] MEDS: HYDROCORTISONE 100 MG VIAL IV SCH ×3 (04:55→21:17)
[2022-03-11] MEDS: INSULIN LISPRO 100 UNIT/ML SUBCUT SCH ×3 (06:00→17:47)
[2022-03-11] MEDS: MIDAZOLAM 100 MG in SODIUM CHLORIDE 0.9% 80 ML IV PRN (08:35)
[2022-03-11] MEDS ORDERED: INSULIN GLARGINE 100 UNIT/ML SUBCUT SCH (09:10)
[2022-03-11] MEDS ORDERED: SODIUM CHLORIDE 0.9% 1,000 ML IV PRN (09:13)
[2022-03-11] MEDS: DONEPEZIL 10 MG TABLET PEG SCH (09:56)
[2022-03-11] MEDS: POLYETHYLENE GLYCOL POWDER 17 GM PACK PEG SCH (09:57)
[2022-03-11] MEDS: PHENYTOIN 100 MG/4 ML UDCUP PER TUBE SCH ×2 (09:57→21:17)
[2022-03-11] MEDS: SERTRALINE 100 MG TABLET PEG SCH (09:57)
[2022-03-11] MEDS: levETIRAcetam LIQUID 100 MG/ML 30 ML/BOTTLE PEG SCH ×2 (10:00→21:18)
[2022-03-11] MEDS: PHENYLEPHRINE DRIP 40 MG/250 ML PREMIX IV PRN (10:01)
[2022-03-11] MEDS: ZINC OXIDE PASTE 113 GM TUBE TOP SCH ×2 (10:01→21:20)
[2022-03-11] MEDS: DEXMEDETOMIDINE 200 MCG in SODIUM CHLORIDE 0.9% 48 ML IV PRN ×2 (10:25→23:00)
[2022-03-11] MEDS: DEXTROSE 5% IV PRN (10:31)
[2022-03-11] MEDS: FENTANYL IV PRN (10:31)
[2022-03-11] MEDS: PANTOPRAZOLE 40 MG VIAL IV SCH (15:17)
[2022-03-11] MEDS: LEVOFLOXACIN INJ 500 MG/100 ML PREMIX IV SCH (17:22)
[2022-03-11] MEDS: ATORVASTATIN 80 MG TABLET PEG SCH (21:17)
[2022-03-11] MEDS: cefTRIAXone 1,000 MG in SYRINGE 1 EACH IV SCH (21:19)
[2022-03-12] MEDS: ALBUTEROL/IPRATROPIUM 3 ML NEB RESP TX SCH ×4 (00:21→19:32)
[2022-03-12] MEDS: INSULIN LISPRO 100 UNIT/ML SUBCUT SCH ×4 (01:20→18:24)
[2022-03-12] MEDS: ENOXAPARIN 80 MG/0.8 ML SYRINGE SUBCUT SCH ×2 (01:20→11:41)
[2022-03-12] MEDS: METOCLOPRAMIDE 10 MG/2 ML VIAL IV SCH ×4 (01:20→18:20)
[2022-03-12 03:40] LABS: ABG Base Excess 0.1 MMOL/L (-2.5-2.5); ABG HCO3 24.5 MMOL/L (20-26); ABG PCO2 38.3 MM HG (35-48); ABG PH 7.415 (7.35-7.45); ABG TCO2 22.7 MMOL/L (23-27)
[2022-03-12] MEDS: HYDROCORTISONE 100 MG VIAL IV SCH ×4 (04:10→21:26)
[2022-03-12 04:20] LABS: Basophils % 0.1 % (0.0-0.8); Hemoglobin 8.4 GM/DL (14.0-18.0); Immature Granulocytes Absolute 0.16 #; Lymphocytes # 0.8 10*3/uL (1.4-4.0); Mean Corpuscular HGB Conc 31.1 GM/DL (32-36); Mean Corpuscular Volume 98.2 FL (87-102); Mean Platelet Volume 11.5 FL (9.6-12.0); Monocytes # 0.5 10*3/uL (0.11-0.8); Monocytes % 3.1 % (1.7-12.7); Neutrophils % 90.8 % (38.7-73.9); Platelet Count 152 T/CUMM (130-400); Red Blood Count 2.75 MC/CUMM (3.8-5.5); Red Cell Distribution Width 14.3 % (9.3-17.3); White Blood Count 15.7 T/CUMM (4-12)
[2022-03-12 04:35] LABS: Calcium 8.3 MG/DL (8.5-10.1); Potassium 3.6 MMOL/L (3.5-5.1)
[2022-03-12 04:45] LABS: Band Neutrophils 1 % (0-10); Hypochromia Slight; Lymphocytes 5 % (20-55); Microcytosis Slight; Platelet Estimate Adequate; Total Cells Counted 100
[2022-03-12] MEDS ORDERED: LACTATED RINGERS 1,000 ML IV ONE ×2 (07:56→10:07)
[2022-03-12] MEDS: DONEPEZIL 10 MG TABLET PEG SCH (08:48)
[2022-03-12] MEDS: INSULIN GLARGINE 100 UNIT/ML SUBCUT SCH (08:48)
[2022-03-12] MEDS: SERTRALINE 100 MG TABLET PEG SCH (08:48)
[2022-03-12] MEDS: ZINC OXIDE PASTE 113 GM TUBE TOP SCH ×2 (08:49→21:27)
[2022-03-12] MEDS: PHENYTOIN 100 MG/4 ML UDCUP PER TUBE SCH ×2 (08:49→21:27)
[2022-03-12] MEDS: levETIRAcetam LIQUID 100 MG/ML 30 ML/BOTTLE PEG SCH ×2 (09:03→21:27)
[2022-03-12] MEDS: DEXMEDETOMIDINE 200 MCG in SODIUM CHLORIDE 0.9% 48 ML IV PRN (11:15)
[2022-03-12] MEDS: VANCOMYCIN INJ 1,250 MG in SODIUM CHLORIDE 0.9% 250 ML IV SCH ×2 (11:42→21:30)
[2022-03-12] MEDS: PANTOPRAZOLE 40 MG VIAL IV SCH (18:10)
[2022-03-12] MEDS: cefTRIAXone 1,000 MG in SYRINGE 1 EACH IV SCH (21:28)
[2022-03-12] MEDS: ATORVASTATIN 80 MG TABLET PEG SCH (21:28)
[2022-03-13] MEDS: ALBUTEROL/IPRATROPIUM 3 ML NEB RESP TX SCH ×4 (00:25→18:55)
[2022-03-13] MEDS: INSULIN LISPRO 100 UNIT/ML SUBCUT SCH ×4 (01:25→17:26)
[2022-03-13] MEDS: ENOXAPARIN 80 MG/0.8 ML SYRINGE SUBCUT SCH ×2 (01:25→12:05)
[2022-03-13] MEDS: METOCLOPRAMIDE 10 MG/2 ML VIAL IV SCH ×4 (01:25→17:32)
[2022-03-13] MEDS: DEXMEDETOMIDINE 200 MCG in SODIUM CHLORIDE 0.9% 48 ML IV PRN (02:46)
[2022-03-13 03:40] LABS: ABG Base Excess 1.1 MMOL/L (-2.5-2.5); ABG HCO3 25.4 MMOL/L (20-26); ABG Oxygen Saturation 98.9 % (95-100); ABG PCO2 37.4 MM HG (35-48); ABG PH 7.437 (7.35-7.45); ABG TCO2 23.4 MMOL/L (23-27)
[2022-03-13] MEDS: HYDROCORTISONE 100 MG VIAL IV SCH ×3 (05:05→21:21)
[2022-03-13 05:25] LABS: Basophils % 0.1 % (0.0-0.8); Hematocrit 27.3 VOL% (42.0-52.0); Hemoglobin 8.7 GM/DL (14.0-18.0); Immature Granulocytes % 1.9 %; Immature Granulocytes Absolute 0.22 #; Lymphocytes # 1.1 10*3/uL (1.4-4.0); Lymphocytes % 9.7 % (21.2-54.2); Mean Corpuscular HGB Conc 31.9 GM/DL (32-36); Mean Corpuscular Volume 95.8 FL (87-102); Mean Platelet Volume 11.6 FL (9.6-12.0); Monocytes # 0.8 10*3/uL (0.11-0.8); Monocytes % 6.6 % (1.7-12.7); NRBC # 0.02 10*3/uL; Neutrophils % 81.7 % (38.7-73.9); Platelet Count 149 T/CUMM (130-400); Red Blood Count 2.85 MC/CUMM (3.8-5.5); Red Cell Distribution Width 13.9 % (9.3-17.3); White Blood Count 11.7 T/CUMM (4-12)
[2022-03-13 05:44] LABS: Alanine Aminotransferase 28 U/L (16-61); Albumin 1.5 G/DL (3.4-5.0); Alkaline Phosphatase 136 U/L (45-117); Aspartate Amino Transferase 35 U/L (0-37); Bilirubin,Total < 0.39 MG/DL (0.20-1.00); Blood Urea Nitrogen 40 MG/DL (7-18); Calcium 8.5 MG/DL (8.5-10.1); Carbon Dioxide 24 MMOL/L (21-32); Chloride 116 MMOL/L (98-107); Glucose 168 MG/DL (74-106); Osmolality,Calculated 307.3 MOS/KG (273-304); Sodium 148 MMOL/L (136-145); Total Protein 6.6 G/DL (6.4-8.2)
[2022-03-13] MEDS: PHENYTOIN 100 MG/4 ML UDCUP PER TUBE SCH ×2 (09:20→21:18)
[2022-03-13] MEDS: POLYETHYLENE GLYCOL POWDER 17 GM PACK PEG SCH (09:20)
[2022-03-13] MEDS: INSULIN GLARGINE 100 UNIT/ML SUBCUT SCH (09:20)
[2022-03-13] MEDS: ZINC OXIDE PASTE 113 GM TUBE TOP SCH ×2 (09:21→21:18)
[2022-03-13] MEDS: POTASSIUM BICARB EFFERVESCENT 20 MEQ TAB.EFF PER TUBE PRN ×4 (09:21→17:30)
[2022-03-13] MEDS: DONEPEZIL 10 MG TABLET PEG SCH (09:21)
[2022-03-13] MEDS: SERTRALINE 100 MG TABLET PEG SCH (09:21)
[2022-03-13] MEDS: levETIRAcetam LIQUID 100 MG/ML 30 ML/BOTTLE PEG SCH ×2 (09:22→21:18)
[2022-03-13] MEDS: VANCOMYCIN INJ 1,250 MG in SODIUM CHLORIDE 0.9% 250 ML IV SCH (09:27)
[2022-03-13] MEDS: LEVOFLOXACIN INJ 750 MG/150 ML PREMIX IV SCH (14:19)
[2022-03-13] MEDS ORDERED: FUROSEMIDE 40 MG/4 ML VIAL IV ONE (14:56)
[2022-03-13] MEDS: PANTOPRAZOLE 40 MG VIAL IV SCH (17:30)
[2022-03-13] MEDS: SODIUM CHLORIDE 3% 4 ML NEB RESP TX SCH (18:55)
[2022-03-13] MEDS: ATORVASTATIN 80 MG TABLET PEG SCH (21:18)
[2022-03-13] MEDS: cefTRIAXone 1,000 MG in SYRINGE 1 EACH IV SCH (21:22)
[2022-03-14] MEDS: INSULIN LISPRO 100 UNIT/ML SUBCUT SCH ×4 (00:02→18:06)
[2022-03-14] MEDS: ALBUTEROL/IPRATROPIUM 3 ML NEB RESP TX SCH ×4 (00:24→18:55)
[2022-03-14] MEDS: METOCLOPRAMIDE 10 MG/2 ML VIAL IV SCH ×2 (00:51→06:20)
[2022-03-14] MEDS: ENOXAPARIN 80 MG/0.8 ML SYRINGE SUBCUT SCH ×2 (00:51→11:20)
[2022-03-14] MEDS: POTASSIUM BICARB EFFERVESCENT 20 MEQ TAB.EFF PER TUBE PRN ×4 (01:41→11:20)
[2022-03-14 03:32] LABS: Basophils % 0.2 % (0.0-0.8); Eosinophils % 0.2 % (0.00-10.9); Hematocrit 28.7 VOL% (42.0-52.0); Hemoglobin 9.3 GM/DL (14.0-18.0); Immature Granulocytes % 2.1 %; Immature Granulocytes Absolute 0.26 #; Lymphocytes # 1.2 10*3/uL (1.4-4.0); Lymphocytes % 9.1 % (21.2-54.2); Mean Corpuscular HGB Conc 32.4 GM/DL (32-36); Mean Corpuscular Volume 94.1 FL (87-102); Mean Platelet Volume 11.3 FL (9.6-12.0); Monocytes # 0.8 10*3/uL (0.11-0.8); Monocytes % 6.1 % (1.7-12.7); NRBC # 0.02 10*3/uL; Neutrophils % 82.3 % (38.7-73.9); Platelet Count 158 T/CUMM (130-400); Red Blood Count 3.05 MC/CUMM (3.8-5.5); Red Cell Distribution Width 13.8 % (9.3-17.3); White Blood Count 12.6 T/CUMM (4-12)
[2022-03-14 03:58] LABS: Calcium 8.1 MG/DL (8.5-10.1); Osmolality,Calculated 303.3 MOS/KG (273-304); Potassium 3.6 MMOL/L (3.5-5.1)
[2022-03-14 04:04] LABS: Arterial Base Excess iSTAT 8 MMOL/L (-2.5-2.5); Arterial Bicarbonate iSTAT 32.5 MMOL/L (20-26); Arterial O2 Saturation iSTAT 96 % (95-100); Arterial PCO2 iSTAT 43 MM HG (35-48); Arterial PO2 iSTAT 78 MM HG (80-95); Arterial Total CO2 iSTAT 34 MMO/L (23-27); Arterial pH iSTAT 7.491 (7.35-7.45)
[2022-03-14] MEDS: ONDANSETRON 4 MG/2 ML VIAL IV PRN (05:04)
[2022-03-14] MEDS: SODIUM CHLORIDE 3% 4 ML NEB RESP TX SCH (07:02)
[2022-03-14] MEDS ORDERED: FUROSEMIDE 40 MG/4 ML VIAL IV ONE (08:42)
[2022-03-14] MEDS: INSULIN GLARGINE 100 UNIT/ML SUBCUT SCH (08:58)
[2022-03-14] MEDS: SERTRALINE 100 MG TABLET PEG SCH (08:58)
[2022-03-14] MEDS: PHENYTOIN 100 MG/4 ML UDCUP PER TUBE SCH ×2 (08:58→20:04)
[2022-03-14] MEDS: POLYETHYLENE GLYCOL POWDER 17 GM PACK PEG SCH (08:58)
[2022-03-14] MEDS: DONEPEZIL 10 MG TABLET PEG SCH (08:59)
[2022-03-14] MEDS: levETIRAcetam LIQUID 100 MG/ML 30 ML/BOTTLE PEG SCH ×2 (08:59→20:03)
[2022-03-14] MEDS: ZINC OXIDE PASTE 113 GM TUBE TOP SCH ×2 (08:59→20:04)
[2022-03-14] MEDS ORDERED: PIPERACILLIN/TAZOBACTAM 3,375 MG in SODIUM CHLORIDE 0.9% 100 ML IV SCH (09:00)
[2022-03-14] MEDS: SCOPOLAMINE 1.5 MG PATCH TRANSDERM SCH (09:00)
[2022-03-14] MEDS: HYDROCORTISONE 100 MG VIAL IV SCH ×2 (09:03→21:15)
[2022-03-14] MEDS: MEROPENEM 500 MG in SODIUM CHLORIDE 0.9% 100 ML IV SCH ×2 (12:02→18:07)
[2022-03-14] MEDS ORDERED: ACETYLCYSTEINE 20% 800 MG/4 ML VIAL ONE (13:14)
[2022-03-14] MEDS: ACETYLCYSTEINE 20% 800 MG/4 ML VIAL RESP TX SCH (13:21)
[2022-03-14] MEDS: LEVOFLOXACIN INJ 750 MG/150 ML PREMIX IV SCH (15:12)
[2022-03-14] MEDS: PANTOPRAZOLE 40 MG VIAL IV SCH (18:07)
[2022-03-14] MEDS: ATORVASTATIN 80 MG TABLET PEG SCH (20:03)
[2022-03-15] MEDS: ACETYLCYSTEINE 20% 800 MG/4 ML VIAL RESP TX SCH ×4 (00:22→19:45)
[2022-03-15] MEDS: ALBUTEROL/IPRATROPIUM 3 ML NEB RESP TX SCH ×4 (00:23→19:45)
[2022-03-15] MEDS: ENOXAPARIN 80 MG/0.8 ML SYRINGE SUBCUT SCH (00:50)
[2022-03-15] MEDS: INSULIN LISPRO 100 UNIT/ML SUBCUT SCH ×4 (00:51→17:16)
[2022-03-15] MEDS: MEROPENEM 500 MG in SODIUM CHLORIDE 0.9% 100 ML IV SCH ×4 (00:51→17:28)
[2022-03-15 03:26] LABS: Basophils % 0.1 % (0.0-0.8); Eosinophils # 0.1 10*3/uL (0.0-0.87); Eosinophils % 0.9 % (0.00-10.9); Hematocrit 28.1 VOL% (42.0-52.0); Hemoglobin 8.9 GM/DL (14.0-18.0); Immature Granulocytes % 1.6 %; Immature Granulocytes Absolute 0.17 #; Lymphocytes # 1.3 10*3/uL (1.4-4.0); Lymphocytes % 11.7 % (21.2-54.2); Mean Corpuscular HGB Conc 31.7 GM/DL (32-36); Mean Corpuscular Volume 95.6 FL (87-102); Mean Platelet Volume 11.3 FL (9.6-12.0); Monocytes # 0.7 10*3/uL (0.11-0.8); Monocytes % 6.1 % (1.7-12.7); Neutrophils % 79.6 % (38.7-73.9); Platelet Count 148 T/CUMM (130-400); Red Blood Count 2.94 MC/CUMM (3.8-5.5); Red Cell Distribution Width 13.9 % (9.3-17.3); White Blood Count 10.9 T/CUMM (4-12)
[2022-03-15 03:39] LABS: Osmolality,Calculated 298.4 MOS/KG (273-304); Potassium 3.2 MMOL/L (3.5-5.1)
[2022-03-15 03:50] LABS: Platelet Estimate Adequate
[2022-03-15 04:18] LABS: Arterial Base Excess iSTAT 14 MMOL/L (-2.5-2.5); Arterial Bicarbonate iSTAT 38.8 MMOL/L (20-26); Arterial O2 Saturation iSTAT 100 % (95-100); Arterial PCO2 iSTAT 48 MM HG (35-48); Arterial PO2 iSTAT 370 MM HG (80-95); Arterial Total CO2 iSTAT 40 MMO/L (23-27); Arterial pH iSTAT 7.518 (7.35-7.45)
[2022-03-15] MEDS: POTASSIUM BICARB EFFERVESCENT 20 MEQ TAB.EFF PER TUBE PRN ×4 (06:09→12:24)
[2022-03-15] MEDS: POLYETHYLENE GLYCOL POWDER 17 GM PACK PEG SCH (08:28)
[2022-03-15] MEDS: PHENYTOIN 100 MG/4 ML UDCUP PER TUBE SCH ×2 (08:29→21:20)
[2022-03-15] MEDS: INSULIN GLARGINE 100 UNIT/ML SUBCUT SCH (08:29)
[2022-03-15] MEDS: levETIRAcetam LIQUID 100 MG/ML 30 ML/BOTTLE PEG SCH ×2 (08:30→21:21)
[2022-03-15] MEDS: ZINC OXIDE PASTE 113 GM TUBE TOP SCH ×2 (08:30→20:43)
[2022-03-15] MEDS: SERTRALINE 100 MG TABLET PEG SCH (08:30)
[2022-03-15] MEDS: DONEPEZIL 10 MG TABLET PEG SCH (08:30)
[2022-03-15] MEDS: ONDANSETRON 4 MG/2 ML VIAL IV PRN (09:34)
[2022-03-15] MEDS: METOCLOPRAMIDE 10 MG/2 ML VIAL IV SCH ×3 (10:11→21:20)
[2022-03-15] MEDS: LEVOFLOXACIN INJ 750 MG/150 ML PREMIX IV SCH (15:13)
[2022-03-15] MEDS: DEXTROSE 10% 250 ML BAG IV PRN ×2 (17:11→20:43)
[2022-03-15] MEDS: PANTOPRAZOLE 40 MG VIAL IV SCH (17:28)
[2022-03-15] MEDS: DEXTROSE 5% NACL 0.45% 1,000 ML IV SCH (17:29)
[2022-03-15] MEDS: ATORVASTATIN 80 MG TABLET PEG SCH (21:20)
[2022-03-15] MEDS: APIXABAN 5 MG TABLET PO SCH (21:20)
[2022-03-16] MEDS: INSULIN LISPRO 100 UNIT/ML SUBCUT SCH ×4 (00:32→17:39)
[2022-03-16] MEDS: MEROPENEM 500 MG in SODIUM CHLORIDE 0.9% 100 ML IV SCH ×4 (00:57→17:38)
[2022-03-16] MEDS: ALBUTEROL/IPRATROPIUM 3 ML NEB RESP TX SCH ×4 (01:10→23:05)
[2022-03-16 04:01] LABS: Basophils % 0.1 % (0.0-0.8); Eosinophils # 0.2 10*3/uL (0.0-0.87); Eosinophils % 1.2 % (0.00-10.9); Hematocrit 26.5 VOL% (42.0-52.0); Hemoglobin 8.2 GM/DL (14.0-18.0); Immature Granulocytes Absolute 0.13 #; Lymphocytes # 1.3 10*3/uL (1.4-4.0); Lymphocytes % 10.5 % (21.2-54.2); Mean Corpuscular HGB Conc 30.9 GM/DL (32-36); Mean Corpuscular Volume 98.5 FL (87-102); Mean Platelet Volume 11.1 FL (9.6-12.0); Monocytes # 0.8 10*3/uL (0.11-0.8); Monocytes % 6.1 % (1.7-12.7); Neutrophils % 81.1 % (38.7-73.9); Platelet Count 157 T/CUMM (130-400); Red Blood Count 2.69 MC/CUMM (3.8-5.5); Red Cell Distribution Width 14.1 % (9.3-17.3); White Blood Count 12.6 T/CUMM (4-12)
[2022-03-16 04:17] LABS: Osmolality,Calculated 290.7 MOS/KG (273-304); Potassium 3.5 MMOL/L (3.5-5.1)
[2022-03-16] MEDS: METOCLOPRAMIDE 10 MG/2 ML VIAL IV SCH ×4 (04:17→21:29)
[2022-03-16] MEDS: DEXTROSE 5% NACL 0.45% 1,000 ML IV SCH ×2 (06:42→20:25)
[2022-03-16] MEDS: ACETYLCYSTEINE 20% 800 MG/4 ML VIAL RESP TX SCH ×3 (07:49→23:05)
[2022-03-16] MEDS: PHENYTOIN 100 MG/4 ML UDCUP PER TUBE SCH ×2 (09:00→21:29)
[2022-03-16] MEDS: SERTRALINE 100 MG TABLET PEG SCH (09:06)
[2022-03-16] MEDS: predniSONE 20 MG TABLET PO SCH (09:06)
[2022-03-16] MEDS: ZINC OXIDE PASTE 113 GM TUBE TOP SCH ×2 (09:06→21:30)
[2022-03-16] MEDS: POLYETHYLENE GLYCOL POWDER 17 GM PACK PEG SCH (09:06)
[2022-03-16] MEDS: DONEPEZIL 10 MG TABLET PEG SCH (09:07)
[2022-03-16] MEDS: POTASSIUM BICARB EFFERVESCENT 20 MEQ TAB.EFF PER TUBE PRN (09:12)
[2022-03-16] MEDS: APIXABAN 5 MG TABLET PO SCH ×2 (09:38→21:29)
[2022-03-16] MEDS: levETIRAcetam LIQUID 100 MG/ML 30 ML/BOTTLE PEG SCH ×2 (09:40→21:30)
[2022-03-16] MEDS ORDERED: FUROSEMIDE 40 MG/4 ML VIAL IV ONE (14:30)
[2022-03-16] MEDS: LEVOFLOXACIN INJ 750 MG/150 ML PREMIX IV SCH (15:06)
[2022-03-16] MEDS: PANTOPRAZOLE 40 MG VIAL IV SCH (17:40)
[2022-03-16] MEDS: ATORVASTATIN 80 MG TABLET PEG SCH (21:29)
[2022-03-17] MEDS: INSULIN LISPRO 100 UNIT/ML SUBCUT SCH ×5 (00:03→23:18)
[2022-03-17] MEDS: MEROPENEM 500 MG in SODIUM CHLORIDE 0.9% 100 ML IV SCH ×3 (00:31→12:06)
[2022-03-17 03:32] LABS: Basophils % 0.1 % (0.0-0.8); Eosinophils # 0.2 10*3/uL (0.0-0.87); Eosinophils % 1.3 % (0.00-10.9); Hematocrit 25.8 VOL% (42.0-52.0); Hemoglobin 8.3 GM/DL (14.0-18.0); Immature Granulocytes % 0.9 %; Lymphocytes # 1.3 10*3/uL (1.4-4.0); Lymphocytes % 11.7 % (21.2-54.2); Mean Corpuscular HGB Conc 32.2 GM/DL (32-36); Mean Corpuscular Volume 95.6 FL (87-102); Monocytes # 0.6 10*3/uL (0.11-0.8); Monocytes % 5.4 % (1.7-12.7); Neutrophils % 80.6 % (38.7-73.9); Platelet Count 174 T/CUMM (130-400); White Blood Count 11.5 T/CUMM (4-12)
[2022-03-17 03:46] LABS: Calcium 8.1 MG/DL (8.5-10.1); Osmolality,Calculated 283.4 MOS/KG (273-304); Phosphorous 2.6 MG/DL (2.5-4.9); Potassium 3.4 MMOL/L (3.5-5.1)
[2022-03-17] MEDS: METOCLOPRAMIDE 10 MG/2 ML VIAL IV SCH ×4 (04:57→21:17)
[2022-03-17] MEDS: POTASSIUM BICARB EFFERVESCENT 20 MEQ TAB.EFF PER TUBE PRN ×2 (06:09→13:26)
[2022-03-17] MEDS: ALBUTEROL/IPRATROPIUM 3 ML NEB RESP TX SCH ×4 (07:40→23:50)
[2022-03-17] MEDS: ACETYLCYSTEINE 20% 800 MG/4 ML VIAL RESP TX SCH ×3 (07:40→23:50)
[2022-03-17] MEDS: APIXABAN 5 MG TABLET PO SCH ×2 (09:22→21:17)
[2022-03-17] MEDS: ZINC OXIDE PASTE 113 GM TUBE TOP SCH ×2 (09:22→21:19)
[2022-03-17] MEDS: DONEPEZIL 10 MG TABLET PEG SCH (09:22)
[2022-03-17] MEDS: PHENYTOIN 100 MG/4 ML UDCUP PER TUBE SCH ×2 (09:22→21:17)
[2022-03-17] MEDS: levETIRAcetam LIQUID 100 MG/ML 30 ML/BOTTLE PEG SCH ×2 (09:23→21:19)
[2022-03-17] MEDS: POLYETHYLENE GLYCOL POWDER 17 GM PACK PEG SCH (09:23)
[2022-03-17] MEDS: predniSONE 20 MG TABLET PO SCH (09:26)
[2022-03-17] MEDS: OMEPRAZOLE ODT 20 MG TABLET PER TUBE SCH (09:26)
[2022-03-17] MEDS: SCOPOLAMINE 1.5 MG PATCH TRANSDERM SCH (09:27)
[2022-03-17] MEDS: SERTRALINE 100 MG TABLET PEG SCH (09:28)
[2022-03-17] MEDS: DEXTROSE 5% NACL 0.45% 1,000 ML IV SCH ×2 (10:00→23:25)
[2022-03-17] MEDS: LEVOFLOXACIN 750 MG TABLET PO SCH (21:17)
[2022-03-17] MEDS: ATORVASTATIN 80 MG TABLET PEG SCH (21:17)
[2022-03-18 03:49] LABS: Basophils % 0.1 % (0.0-0.8); Eosinophils # 0.1 10*3/uL (0.0-0.87); Eosinophils % 0.7 % (0.00-10.9); Hematocrit 24.8 VOL% (42.0-52.0); Hemoglobin 7.6 GM/DL (14.0-18.0); Immature Granulocytes % 0.7 %; Immature Granulocytes Absolute 0.09 #; Lymphocytes # 1.1 10*3/uL (1.4-4.0); Lymphocytes % 8.5 % (21.2-54.2); Mean Corpuscular HGB Conc 30.6 GM/DL (32-36); Mean Platelet Volume 10.4 FL (9.6-12.0); Monocytes # 0.7 10*3/uL (0.11-0.8); Monocytes % 5.1 % (1.7-12.7); Neutrophils % 84.9 % (38.7-73.9); Platelet Count 180 T/CUMM (130-400); Red Blood Count 2.61 MC/CUMM (3.8-5.5); Red Cell Distribution Width 13.8 % (9.3-17.3); White Blood Count 12.9 T/CUMM (4-12)
[2022-03-18 04:03] LABS: Calcium 7.8 MG/DL (8.5-10.1); Osmolality,Calculated 279.4 MOS/KG (273-304); Potassium 3.6 MMOL/L (3.5-5.1)
[2022-03-18] MEDS: METOCLOPRAMIDE 10 MG/2 ML VIAL IV SCH ×4 (04:09→21:02)
[2022-03-18] MEDS: INSULIN LISPRO 100 UNIT/ML SUBCUT SCH ×3 (06:05→17:41)
[2022-03-18] MEDS: POTASSIUM BICARB EFFERVESCENT 20 MEQ TAB.EFF PER TUBE PRN ×2 (06:06→09:02)
[2022-03-18] MEDS: ACETYLCYSTEINE 20% 800 MG/4 ML VIAL RESP TX SCH ×2 (06:58→13:12)
[2022-03-18] MEDS: ALBUTEROL/IPRATROPIUM 3 ML NEB RESP TX SCH ×3 (06:58→19:30)
[2022-03-18] MEDS: DONEPEZIL 10 MG TABLET PEG SCH (09:01)
[2022-03-18] MEDS: SERTRALINE 100 MG TABLET PEG SCH (09:01)
[2022-03-18] MEDS: APIXABAN 5 MG TABLET PO SCH ×2 (09:02→20:02)
[2022-03-18] MEDS: predniSONE 20 MG TABLET PO SCH (09:02)
[2022-03-18] MEDS: OMEPRAZOLE ODT 20 MG TABLET PER TUBE SCH (09:02)
[2022-03-18] MEDS: PHENYTOIN 100 MG/4 ML UDCUP PER TUBE SCH ×2 (09:03→20:01)
[2022-03-18] MEDS: POLYETHYLENE GLYCOL POWDER 17 GM PACK PEG SCH (09:03)
[2022-03-18] MEDS: levETIRAcetam LIQUID 100 MG/ML 30 ML/BOTTLE PEG SCH ×2 (09:04→20:03)
[2022-03-18] MEDS: ZINC OXIDE PASTE 113 GM TUBE TOP SCH ×2 (09:04→20:04)
[2022-03-18] MEDS: DEXTROSE 5% NACL 0.45% 1,000 ML IV SCH (12:39)
[2022-03-18] MEDS ORDERED: FUROSEMIDE 40 MG/4 ML VIAL IV ONE (13:36)
[2022-03-18] MEDS: LEVOFLOXACIN 750 MG TABLET PO SCH (20:01)
[2022-03-18] MEDS: ATORVASTATIN 80 MG TABLET PEG SCH (20:02)
[2022-03-19] MEDS: INSULIN LISPRO 100 UNIT/ML SUBCUT SCH ×2 (00:19→05:15)
[2022-03-19] MEDS: DEXTROSE 5% NACL 0.45% 1,000 ML IV SCH (00:41)
[2022-03-19] MEDS: METOCLOPRAMIDE 10 MG/2 ML VIAL IV SCH ×2 (03:07→09:04)
[2022-03-19 03:21] LABS: Basophils % 0.1 % (0.0-0.8); Eosinophils # 0.1 10*3/uL (0.0-0.87); Eosinophils % 0.9 % (0.00-10.9); Hematocrit 27.2 VOL% (42.0-52.0); Hemoglobin 8.6 GM/DL (14.0-18.0); Immature Granulocytes % 0.8 %; Lymphocytes # 1.7 10*3/uL (1.4-4.0); Mean Corpuscular HGB Conc 31.6 GM/DL (32-36); Mean Corpuscular Volume 96.5 FL (87-102); Monocytes # 0.7 10*3/uL (0.11-0.8); Monocytes % 5.8 % (1.7-12.7); Neutrophils % 78.4 % (38.7-73.9); Platelet Count 205 T/CUMM (130-400); Red Blood Count 2.82 MC/CUMM (3.8-5.5); Red Cell Distribution Width 13.7 % (9.3-17.3)
[2022-03-19 03:24] VITALS: BP 150/76
[2022-03-19 03:45] LABS: Osmolality,Calculated 279.5 MOS/KG (273-304); Potassium 3.6 MMOL/L (3.5-5.1)
[2022-03-19] MEDS: ACETYLCYSTEINE 20% 800 MG/4 ML VIAL RESP TX SCH ×2 (07:01)
[2022-03-19] MEDS: ALBUTEROL/IPRATROPIUM 3 ML NEB RESP TX SCH ×2 (07:01)
[2022-03-19] MEDS: levETIRAcetam LIQUID 100 MG/ML 30 ML/BOTTLE PEG SCH (08:10)
[2022-03-19] MEDS: POLYETHYLENE GLYCOL POWDER 17 GM PACK PEG SCH (08:13)
[2022-03-19] MEDS: predniSONE 20 MG TABLET PO SCH (08:14)
[2022-03-19] MEDS: DONEPEZIL 10 MG TABLET PEG SCH (08:14)
[2022-03-19] MEDS: OMEPRAZOLE ODT 20 MG TABLET PER TUBE SCH (08:14)
[2022-03-19] MEDS: PHENYTOIN 100 MG/4 ML UDCUP PER TUBE SCH (08:14)
[2022-03-19] MEDS: APIXABAN 5 MG TABLET PO SCH (08:14)
[2022-03-19] MEDS: SERTRALINE 100 MG TABLET PEG SCH (08:14)
[2022-03-19] MEDS: ZINC OXIDE PASTE 113 GM TUBE TOP SCH (08:16)
[2022-03-22] MEDS ORDERED: APIXABAN 5 MG TABLET PO SCH (21:00)
== END 2022-03-19 11:00 | DRG 870 ==
LOC: N.ED 10:06 → N.CC 13:44 → SUATTDRO 13:44 → N.CC 15:10
PROVIDERS: ADMIT Internal Medicine; ATTEND Internal Medicine

== ENCOUNTER 2022-09-24 01:29 | Inpatient (IN) ==
[2022-09-24] MEDS ORDERED: ONDANSETRON 4 MG/2 ML VIAL IV STA (01:49)
[2022-09-24] MEDS ORDERED: SODIUM CHLORIDE 0.9% 500 ML IV STA (01:49)
[2022-09-24] MEDS ORDERED: PIPERACILLIN/TAZOBACTAM 3,375 MG in SODIUM CHLORIDE 0.9% 100 ML IV STA (01:49)
[2022-09-24] MEDS ORDERED: PANTOPRAZOLE 40 MG VIAL IV STA (01:49)
[2022-09-24 02:39] LABS: Basophils % 0.2 % (0.0-0.8); Eosinophils % 0.3 % (0.00-10.9); Hematocrit 31.5 VOL% (42.0-52.0); Immature Granulocytes % 0.5 %; Immature Granulocytes Absolute 0.08 #; Lymphocytes # 1.3 10*3/uL (1.4-4.0); Lymphocytes % 8.3 % (21.2-54.2); Mean Corpuscular HGB Conc 31.7 GM/DL (32-36); Mean Platelet Volume 12.6 FL (9.6-12.0); Monocytes % 6.4 % (1.7-12.7); Neutrophils % 84.3 % (38.7-73.9); Platelet Count 116 T/CUMM (130-400); Red Blood Count 3.15 MC/CUMM (3.8-5.5); Red Cell Distribution Width 14.1 % (9.3-17.3); White Blood Count 15.9 T/CUMM (4-12)
[2022-09-24 03:09] LABS: Alanine Aminotransferase 27 U/L (16-61); Albumin 3.1 G/DL (3.4-5.0); Alkaline Phosphatase 192 U/L (45-117); Amylase 61 U/L (25-115); Aspartate Amino Transferase 36 U/L (0-37); Bilirubin,Total < 0.39 MG/DL (0.20-1.00); Blood Urea Nitrogen 29 MG/DL (7-18); Calcium 8.7 MG/DL (8.5-10.1); Carbon Dioxide 34 MMOL/L (21-32); Chloride 110 MMOL/L (98-107); Glucose 137 MG/DL (74-106); Osmolality,Calculated 303.1 MOS/KG (273-304); Potassium 3.7 MMOL/L (3.5-5.1); Sodium 149 MMOL/L (136-145); Total Protein 7.6 G/DL (6.4-8.2)
[2022-09-24 03:21] LABS: Bacteria,Urine Occasional /HPF (Few); Hyaline Casts,Urine 1 /LPF (0-3); Mucus,Urine Occasional /LPF (Occasional); RBC,Urine 18 /HPF (0-4); Squamous Epithelial Cell,Urine Occasional /HPF (0-10)
[2022-09-24 03:22] LABS: Bilirubin,Urine Negative (Negative); Blood, Urine Moderate mg/dL (Negative); Glucose,Urine (UA) Negative (Negative); Ketones,Urine Trace mg/dL (Negative); Nitrite,Urine Negative (Negative); Protein,Urine >=300 mg/dL (Negative); Urine Appearance Clear (Clear); Urine Color Yellow (Yellow); Urine Specific Gravity 1.025 (1.001-1.035); Urine Urobilinogen 0.2 eU/dL (<2.0); Urine pH 5.5 (4.5-8.0)
[2022-09-24] MEDS ORDERED: ETOMIDATE 20 MG/10 ML VIAL IV ONE (03:38)
[2022-09-24] MEDS ORDERED: VECURONIUM 10 MG VIAL IV ONE (03:39)
[2022-09-24] MEDS ORDERED: ETOMIDATE 20 MG/10 ML VIAL IV STA (03:51)
[2022-09-24] MEDS ORDERED: VECURONIUM 10 MG VIAL IV STA (03:51)
[2022-09-24] MEDS ORDERED: VANCOMYCIN INJ 1,000 MG in SODIUM CHLORIDE 0.9% 250 ML IV STA (04:19)
[2022-09-24] MEDS ORDERED: DILTIAZEM 50 MG/10 ML VIAL IV STA (05:13)
[2022-09-24] MEDS ORDERED: ONDANSETRON 4 MG/2 ML VIAL IV PRN (05:24)
[2022-09-24] MEDS ORDERED: LACTULOSE 20 GM/30 ML UDCUP PO PRN (05:24)
[2022-09-24] MEDS ORDERED: hydrALAZINE 20 MG/1 ML VIAL IV PRN (05:24)
[2022-09-24 05:27] LABS: INR 1.1; PT Patient Result 11.7 SECS (10.1-12.1); Partial Thromboplastin Time 31.3 SECS (23.7-32.9)
[2022-09-24] MEDS ORDERED: GLUCAGON 1 MG VIAL IM PRN (06:15)
[2022-09-24] MEDS ORDERED: DEXTROSE 50% 25 GM/50 ML SYRINGE IV PRN (06:17)
[2022-09-24] MEDS: VANCOMYCIN INJ 1,250 MG in SODIUM CHLORIDE 0.9% 250 ML IV SCH ×2 (06:25→17:26)
[2022-09-24] MEDS: SODIUM CHLORIDE 0.45% 1,000 ML IV SCH ×2 (06:25→07:44)
[2022-09-24] MEDS ORDERED: SODIUM CHLORIDE 0.9% 1,000 ML IV ONE (06:33)
[2022-09-24] MEDS: methylPREDNISolone SOD SUC 40 MG/1 ML VIAL IV SCH ×3 (06:40→21:03)
[2022-09-24] MEDS ORDERED: MIDAZOLAM DRIP 100 MG/100 ML PREMIX IV ONE (06:42)
[2022-09-24] MEDS: PHENYLEPHRINE DRIP 40 MG/250 ML PREMIX IV PRN ×3 (06:46→13:20)
[2022-09-24] MEDS: MIDAZOLAM DRIP 100 MG/100 ML PREMIX IV PRN (06:47)
[2022-09-24 06:52] LABS: Arterial Base Excess iSTAT 4 MMOL/L (-2.5-2.5); Arterial Bicarbonate iSTAT 28.8 MMOL/L (20-26); Arterial O2 Saturation iSTAT 96 % (95-100); Arterial PCO2 iSTAT 44 MM HG (35-48); Arterial PO2 iSTAT 82 MM HG (80-95); Arterial Total CO2 iSTAT 30 MMO/L (23-27); Arterial pH iSTAT 7.427 (7.35-7.45)
[2022-09-24] MEDS ORDERED: METOPROLOL TARTRATE 5 MG/5 ML VIAL IV ONE ×2 (06:57→07:00)
[2022-09-24] MEDS ORDERED: MORPHINE 2 MG/1 ML SYRINGE ONE (06:58)
[2022-09-24] MEDS ORDERED: MORPHINE 2 MG/1 ML SYRINGE IV ONE (07:00)
[2022-09-24] MEDS: PHENYTOIN 100 MG/2 ML VIAL IV SCH ×2 (08:00→12:03)
[2022-09-24] MEDS ORDERED: LACTATED RINGERS 1,000 ML IV ONE (08:22)
[2022-09-24] MEDS: ALBUTEROL/IPRATROPIUM 3 ML NEB RESP TX SCH ×3 (08:22→19:34)
[2022-09-24] MEDS: MEROPENEM 500 MG in SODIUM CHLORIDE 0.9% 100 ML IV SCH ×3 (08:52→21:02)
[2022-09-24] MEDS ORDERED: ENOXAPARIN 80 MG/0.8 ML SYRINGE SUBCUT SCH (09:00)
[2022-09-24] MEDS ORDERED: FAMOTIDINE INJ 40 MG in SODIUM CHLORIDE 0.9% 100 ML IV SCH (09:00)
[2022-09-24 09:02] LABS: Arterial Base Excess iSTAT 2 MMOL/L (-2.5-2.5); Arterial O2 Saturation iSTAT 95 % (95-100); Arterial PCO2 iSTAT 54 MM HG (35-48); Arterial PO2 iSTAT 79 MM HG (80-95); Arterial Total CO2 iSTAT 31 MMO/L (23-27); Arterial pH iSTAT 7.339 (7.35-7.45)
[2022-09-24] MEDS: LACTATED RINGERS 1,000 ML IV SCH ×2 (09:51→21:03)
[2022-09-24] MEDS: VANCOMYCIN 50 MG/ML 60 ML/BOTTLE PER TUBE SCH ×3 (10:29→22:31)
[2022-09-24] MEDS ORDERED: LACTATED RINGERS 500 ML IV ONE ×2 (10:56→12:51)
[2022-09-24] MEDS: INSULIN LISPRO 100 UNIT/ML SUBCUT SCH ×3 (11:40→23:40)
[2022-09-24] MEDS ORDERED: NOREPINEPHRINE 4 MG/4 ML VIAL IV ONE (12:57)
[2022-09-24] MEDS: NOREPINEPHRINE 16 MG in SODIUM CHLORIDE 0.9% 234 ML IV PRN (13:00)
[2022-09-24 15:42] LABS: Arterial Base Excess iSTAT 2 MMOL/L (-2.5-2.5); Arterial Bicarbonate iSTAT 27.9 MMOL/L (20-26); Arterial O2 Saturation iSTAT 57 % (95-100); Arterial PCO2 iSTAT 52 MM HG (35-48); Arterial PO2 iSTAT 32 MM HG (80-95); Arterial Total CO2 iSTAT 29 MMO/L (23-27); Arterial pH iSTAT 7.337 (7.35-7.45)
[2022-09-24 15:55] LABS: Arterial Base Excess iSTAT 3 MMOL/L (-2.5-2.5); Arterial Bicarbonate iSTAT 27.5 MMOL/L (20-26); Arterial O2 Saturation iSTAT 100 % (95-100); Arterial PCO2 iSTAT 40 MM HG (35-48); Arterial PO2 iSTAT 207 MM HG (80-95); Arterial Total CO2 iSTAT 29 MMO/L (23-27)
[2022-09-24] MEDS: ZINC OXIDE 16% PASTE 57 GM TUBE TOP SCH ×2 (16:50→21:03)
[2022-09-24 17:34] LABS: Basophils % 0.2 % (0.0-0.8); Hematocrit 28.6 VOL% (42.0-52.0); Hemoglobin 8.7 GM/DL (14.0-18.0); Immature Granulocytes % 0.4 %; Immature Granulocytes Absolute 0.02 #; Lymphocytes # 0.7 10*3/uL (1.4-4.0); Mean Corpuscular HGB Conc 30.4 GM/DL (32-36); Mean Corpuscular Volume 101.8 FL (87-102); Monocytes # 0.6 10*3/uL (0.11-0.8); Monocytes % 11.9 % (1.7-12.7); NRBC # 0.02 10*3/uL; Neutrophils % 73.5 % (38.7-73.9); Platelet Count 113 T/CUMM (130-400); Red Blood Count 2.81 MC/CUMM (3.8-5.5); Red Cell Distribution Width 14.3 % (9.3-17.3); White Blood Count 4.6 T/CUMM (4-12)
[2022-09-24] MEDS ORDERED: levETIRAcetam LIQUID 100 MG/ML 30 ML/BOTTLE PEG SCH (21:00)
[2022-09-24] MEDS: FERROUS SULFATE 300 MG/5 ML UDCUP PO SCH (21:03)
[2022-09-24] MEDS: PHENYTOIN 100 MG/4 ML UDCUP PER TUBE SCH (21:03)
[2022-09-24] MEDS: ACETAMINOPHEN 325 MG TABLET PO PRN (21:04)
[2022-09-24] MEDS: ATORVASTATIN 80 MG TABLET PEG SCH (21:04)
[2022-09-25] MEDS: ALBUTEROL/IPRATROPIUM 3 ML NEB RESP TX SCH ×4 (00:23→19:55)
[2022-09-25] MEDS ORDERED: IBUPROFEN 100 MG/5 ML UDCUP PO ONE (00:30)
[2022-09-25] MEDS: MIDAZOLAM DRIP 100 MG/100 ML PREMIX IV PRN (01:40)
[2022-09-25] MEDS: MEROPENEM 500 MG in SODIUM CHLORIDE 0.9% 100 ML IV SCH ×4 (01:40→20:22)
[2022-09-25] MEDS ORDERED: PANTOPRAZOLE 40 MG VIAL IV SCH (02:00)
[2022-09-25] MEDS: ACETAMINOPHEN 325 MG TABLET PO PRN (02:37)
[2022-09-25] MEDS: NOREPINEPHRINE 16 MG in SODIUM CHLORIDE 0.9% 234 ML IV PRN (03:17)
[2022-09-25 05:00] LABS: Basophils % 0.2 % (0.0-0.8); Immature Granulocytes % 1.3 %; Immature Granulocytes Absolute 0.23 #; Lymphocytes % 5.7 % (21.2-54.2); Mean Corpuscular Volume 102.1 FL (87-102); Mean Platelet Volume 13.4 FL (9.6-12.0); Monocytes # 1.1 10*3/uL (0.11-0.8); Monocytes % 6.4 % (1.7-12.7); Neutrophils % 86.4 % (38.7-73.9); Platelet Count 111 T/CUMM (130-400); Red Blood Count 2.84 MC/CUMM (3.8-5.5); Red Cell Distribution Width 14.3 % (9.3-17.3); White Blood Count 17.6 T/CUMM (4-12)
[2022-09-25 05:07] LABS: Albumin 2.3 G/DL (3.4-5.0); Bilirubin,Total 0.5 MG/DL (0.20-1.00); Potassium 3.5 MMOL/L (3.5-5.1); Total Protein 6.7 G/DL (6.4-8.2)
[2022-09-25 05:26] LABS: Arterial Base Excess iSTAT 2 MMOL/L (-2.5-2.5); Arterial Bicarbonate iSTAT 27.1 MMOL/L (20-26); Arterial O2 Saturation iSTAT 100 % (95-100); Arterial PCO2 iSTAT 43 MM HG (35-48); Arterial PO2 iSTAT 247 MM HG (80-95); Arterial Total CO2 iSTAT 28 MMO/L (23-27); Arterial pH iSTAT 7.409 (7.35-7.45)
[2022-09-25 05:34] LABS: Anisocytosis Slight; Band Neutrophils 9 % (0-10); Hypochromia Slight; Lymphocytes 9 % (20-55); Metamyelocytes 1 %; Myelocytes 4 %; Platelet Estimate Normal; Total Cells Counted 100
[2022-09-25] MEDS: INSULIN LISPRO 100 UNIT/ML SUBCUT SCH ×4 (05:48→23:29)
[2022-09-25] MEDS: LACTATED RINGERS 1,000 ML IV SCH ×4 (05:48→19:42)
[2022-09-25] MEDS: VANCOMYCIN INJ 1,250 MG in SODIUM CHLORIDE 0.9% 250 ML IV SCH (05:48)
[2022-09-25] MEDS: VANCOMYCIN 50 MG/ML 60 ML/BOTTLE PER TUBE SCH ×4 (05:49→23:06)
[2022-09-25] MEDS: methylPREDNISolone SOD SUC 40 MG/1 ML VIAL IV SCH ×3 (05:49→22:50)
[2022-09-25] MEDS: FERROUS SULFATE 300 MG/5 ML UDCUP PO SCH ×2 (09:21→20:22)
[2022-09-25] MEDS: FAMOTIDINE 20 MG/2 ML VIAL IV SCH ×2 (09:21→20:22)
[2022-09-25] MEDS: ZINC OXIDE 16% PASTE 57 GM TUBE TOP SCH ×2 (09:21→20:23)
[2022-09-25] MEDS: PHENYTOIN 100 MG/4 ML UDCUP PER TUBE SCH ×2 (09:21→20:22)
[2022-09-25] MEDS: DONEPEZIL 10 MG TABLET PEG SCH (09:21)
[2022-09-25] MEDS: SERTRALINE 100 MG TABLET PEG SCH (09:22)
[2022-09-25] MEDS: ENOXAPARIN 40 MG/0.4 ML SYRINGE SUBCUT SCH (20:21)
[2022-09-25] MEDS: ATORVASTATIN 80 MG TABLET PEG SCH (20:23)
[2022-09-25 21:06] LABS: Band Neutrophils 17 % (0-10); Lymphocytes 13 % (20-55); Metamyelocytes 1 %; Myelocytes 4 %; Platelet Estimate Decreased
[2022-09-25 21:09] LABS: Total Cells Counted 100
[2022-09-26] MEDS: ALBUTEROL/IPRATROPIUM 3 ML NEB RESP TX SCH ×4 (00:15→19:47)
[2022-09-26] MEDS: MEROPENEM 500 MG in SODIUM CHLORIDE 0.9% 100 ML IV SCH ×3 (01:04→17:03)
[2022-09-26] MEDS ORDERED: METOPROLOL TARTRATE 5 MG/5 ML VIAL IV ONE ×2 (02:15→07:49)
[2022-09-26] MEDS: MIDAZOLAM DRIP 100 MG/100 ML PREMIX IV PRN (02:48)
[2022-09-26] MEDS: NOREPINEPHRINE 16 MG in SODIUM CHLORIDE 0.9% 234 ML IV PRN ×2 (02:50→22:10)
[2022-09-26 03:48] LABS: Basophils % 0.2 % (0.0-0.8); Eosinophils % 0.2 % (0.00-10.9); Hemoglobin 9.3 GM/DL (14.0-18.0); Immature Granulocytes % 2.5 %; Immature Granulocytes Absolute 0.47 #; Lymphocytes # 0.5 10*3/uL (1.4-4.0); Lymphocytes % 2.4 % (21.2-54.2); Mean Corpuscular HGB Conc 32.1 GM/DL (32-36); Mean Corpuscular Volume 98.6 FL (87-102); Monocytes # 0.5 10*3/uL (0.11-0.8); Monocytes % 2.8 % (1.7-12.7); Neutrophils % 91.9 % (38.7-73.9); Platelet Count 105 T/CUMM (130-400); Red Blood Count 2.94 MC/CUMM (3.8-5.5); Red Cell Distribution Width 14.1 % (9.3-17.3); White Blood Count 18.8 T/CUMM (4-12)
[2022-09-26 04:02] LABS: Arterial Base Excess iSTAT 0 MMOL/L (-2.5-2.5); Arterial Bicarbonate iSTAT 24.2 MMOL/L (20-26); Arterial O2 Saturation iSTAT 99 % (95-100); Arterial PCO2 iSTAT 37 MM HG (35-48); Arterial PO2 iSTAT 134 MM HG (80-95); Arterial Total CO2 iSTAT 25 MMO/L (23-27); Arterial pH iSTAT 7.423 (7.35-7.45)
[2022-09-26 04:10] LABS: Lymphocytes 6 % (20-55); Platelet Estimate Decreased; Total Cells Counted 100
[2022-09-26 04:12] LABS: Free T4 (Free Thyroxine) 0.98 NG/DL (0.76-1.46); Phosphorous 2.2 MG/DL (2.5-4.9); Thyroid Stimulating Hormone 2.58 uIU/ml (0.358-3.74)
[2022-09-26 04:16] LABS: Bilirubin,Total 0.5 MG/DL (0.20-1.00); Calcium 7.8 MG/DL (8.5-10.1); Osmolality,Calculated 311.3 MOS/KG (273-304); Potassium 3.1 MMOL/L (3.5-5.1); Total Protein 6.5 G/DL (6.4-8.2)
[2022-09-26] MEDS: LACTATED RINGERS 1,000 ML IV SCH ×2 (04:37→08:07)
[2022-09-26 04:41] LABS: Folate > 24.00 NG/ML (5.38-24.0); Vitamin B12 > 2000 PG/ML (211-911)
[2022-09-26] MEDS: VANCOMYCIN 50 MG/ML 60 ML/BOTTLE PER TUBE SCH ×2 (04:51→11:16)
[2022-09-26] MEDS ORDERED: POTASSIUM CHLORIDE RIDER 10 MEQ/100 ML PREMIX IV PRN (04:56)
[2022-09-26] MEDS: methylPREDNISolone SOD SUC 40 MG/1 ML VIAL IV SCH ×2 (05:25→17:04)
[2022-09-26] MEDS: INSULIN LISPRO 100 UNIT/ML SUBCUT SCH ×3 (05:25→17:55)
[2022-09-26] MEDS: POTASSIUM CHLORIDE RIDER 20 MEQ/100 ML PREMIX IV PRN ×2 (06:15→08:15)
[2022-09-26] MEDS: DONEPEZIL 10 MG TABLET PEG SCH (08:23)
[2022-09-26] MEDS: ZINC OXIDE 16% PASTE 57 GM TUBE TOP SCH ×2 (08:24→20:25)
[2022-09-26] MEDS: FERROUS SULFATE 300 MG/5 ML UDCUP PO SCH ×2 (08:24→20:24)
[2022-09-26] MEDS: PHENYTOIN 100 MG/4 ML UDCUP PER TUBE SCH ×2 (08:24→20:24)
[2022-09-26] MEDS: SERTRALINE 100 MG TABLET PEG SCH (08:24)
[2022-09-26] MEDS: FAMOTIDINE 20 MG/2 ML VIAL IV SCH ×2 (08:24→20:24)
[2022-09-26] MEDS ORDERED: POTASSIUM BICARB EFFERVESCENT 20 MEQ TAB.EFF PER TUBE PRN (09:16)
[2022-09-26] MEDS: METOPROLOL TARTRATE 5 MG/5 ML VIAL IV SCH ×2 (13:20→17:01)
[2022-09-26] MEDS: FIDAXOMICIN 200 MG TABLET PO SCH ×2 (15:50→20:24)
[2022-09-26] MEDS: ALBUMIN 25% 25 GM/100 ML VIAL IV SCH ×2 (15:50→22:00)
[2022-09-26] MEDS: ENOXAPARIN 40 MG/0.4 ML SYRINGE SUBCUT SCH (20:23)
[2022-09-26] MEDS: ATORVASTATIN 80 MG TABLET PEG SCH (20:24)
[2022-09-27] MEDS: METOPROLOL TARTRATE 5 MG/5 ML VIAL IV SCH ×5 (00:06→23:37)
[2022-09-27] MEDS: INSULIN LISPRO 100 UNIT/ML SUBCUT SCH ×5 (00:15→23:37)
[2022-09-27] MEDS: ALBUTEROL/IPRATROPIUM 3 ML NEB RESP TX SCH ×4 (01:06→19:46)
[2022-09-27] MEDS: MEROPENEM 500 MG in SODIUM CHLORIDE 0.9% 100 ML IV SCH ×3 (02:22→17:14)
[2022-09-27 03:58] LABS: Basophils # 0.1 10*3/uL (0.0-0.2); Basophils % 0.3 % (0.0-0.8); Hematocrit 22.8 VOL% (42.0-52.0); Hemoglobin 7.2 GM/DL (14.0-18.0); Immature Granulocytes % 1.7 %; Lymphocytes # 0.9 10*3/uL (1.4-4.0); Lymphocytes % 3.1 % (21.2-54.2); Mean Corpuscular HGB Conc 31.6 GM/DL (32-36); Mean Corpuscular Volume 99.1 FL (87-102); Mean Platelet Volume 13.3 FL (9.6-12.0); Monocytes # 0.8 10*3/uL (0.11-0.8); Monocytes % 2.8 % (1.7-12.7); NRBC # 0.02 10*3/uL; Neutrophils % 92.1 % (38.7-73.9); Platelet Count 95 T/CUMM (130-400); Red Cell Distribution Width 14.6 % (9.3-17.3); White Blood Count 28.6 T/CUMM (4-12)
[2022-09-27 04:15] LABS: Albumin 2.5 G/DL (3.4-5.0); Bilirubin,Total 0.4 MG/DL (0.20-1.00); Calcium 7.7 MG/DL (8.5-10.1); Osmolality,Calculated 311.6 MOS/KG (273-304); Potassium 4.2 MMOL/L (3.5-5.1); Total Protein 6.5 G/DL (6.4-8.2)
[2022-09-27 04:18] LABS: Arterial Base Excess iSTAT 1 MMOL/L (-2.5-2.5); Arterial Bicarbonate iSTAT 26.3 MMOL/L (20-26); Arterial O2 Saturation iSTAT 62 % (95-100); Arterial PCO2 iSTAT 44 MM HG (35-48); Arterial PO2 iSTAT 33 MM HG (80-95); Arterial Total CO2 iSTAT 28 MMO/L (23-27); Arterial pH iSTAT 7.381 (7.35-7.45)
[2022-09-27 04:24] LABS: Arterial Base Excess iSTAT 2 MMOL/L (-2.5-2.5); Arterial Bicarbonate iSTAT 27.3 MMOL/L (20-26); Arterial O2 Saturation iSTAT 100 % (95-100); Arterial PCO2 iSTAT 43 MM HG (35-48); Arterial PO2 iSTAT 187 MM HG (80-95); Arterial Total CO2 iSTAT 29 MMO/L (23-27)
[2022-09-27 04:26] LABS: Lymphocytes 8 % (20-55); Total Cells Counted 100
[2022-09-27 04:27] LABS: Platelet Estimate Decreased
[2022-09-27] MEDS: methylPREDNISolone SOD SUC 40 MG/1 ML VIAL IV SCH ×2 (05:43→17:14)
[2022-09-27] MEDS: ALBUMIN 25% 25 GM/100 ML VIAL IV SCH (06:00)
[2022-09-27] MEDS: FAMOTIDINE 20 MG/2 ML VIAL IV SCH ×2 (08:04→20:04)
[2022-09-27] MEDS: ZINC OXIDE 16% PASTE 57 GM TUBE TOP SCH ×2 (08:06→20:05)
[2022-09-27] MEDS: FIDAXOMICIN 200 MG TABLET PO SCH ×2 (08:06→20:05)
[2022-09-27] MEDS: DONEPEZIL 10 MG TABLET PEG SCH (08:06)
[2022-09-27] MEDS: PHENYTOIN 100 MG/4 ML UDCUP PER TUBE SCH ×2 (08:07→20:04)
[2022-09-27] MEDS: FERROUS SULFATE 300 MG/5 ML UDCUP PO SCH ×2 (08:07→20:05)
[2022-09-27] MEDS: SERTRALINE 100 MG TABLET PEG SCH (08:07)
[2022-09-27 10:34] LABS: Basophils % 0.1 % (0.0-0.8); Immature Granulocytes % 1.8 %; Immature Granulocytes Absolute 0.36 #; Lymphocytes # 1.2 10*3/uL (1.4-4.0); Lymphocytes % 5.7 % (21.2-54.2); Mean Corpuscular Volume 100.5 FL (87-102); Mean Platelet Volume 13.4 FL (9.6-12.0); Monocytes # 0.7 10*3/uL (0.11-0.8); Monocytes % 3.4 % (1.7-12.7); NRBC # 0.02 10*3/uL; Red Blood Count 2.09 MC/CUMM (3.8-5.5); Red Cell Distribution Width 14.6 % (9.3-17.3)
[2022-09-27 10:35] LABS: Hemoglobin 6.5 GM/DL (14.0-18.0); Platelet Count 77 T/CUMM (130-400)
[2022-09-27 10:48] LABS: Band Neutrophils 4 % (0-10); Hypochromia Slight; Lymphocytes 4 % (20-55); Platelet Estimate Decreased; Total Cells Counted 100
[2022-09-27] MEDS ORDERED: SODIUM CHLORIDE 0.9% 1,000 ML IV PRN (10:50)
[2022-09-27 11:00] LABS: % Iron Saturation 39.4 % (18-50); Ferritin 1115.3 ng/mL (26-388)
[2022-09-27] MEDS: MIDAZOLAM DRIP 100 MG/100 ML PREMIX IV PRN (17:30)
[2022-09-27] MEDS: ENOXAPARIN 40 MG/0.4 ML SYRINGE SUBCUT SCH (20:05)
[2022-09-27] MEDS: ATORVASTATIN 80 MG TABLET PEG SCH (20:05)
[2022-09-28] MEDS: ALBUTEROL/IPRATROPIUM 3 ML NEB RESP TX SCH ×4 (00:22→19:35)
[2022-09-28] MEDS: MEROPENEM 500 MG in SODIUM CHLORIDE 0.9% 100 ML IV SCH (01:57)
[2022-09-28 03:44] LABS: Arterial Base Excess iSTAT 1 MMOL/L (-2.5-2.5); Arterial Bicarbonate iSTAT 26.6 MMOL/L (20-26); Arterial O2 Saturation iSTAT 90 % (95-100); Arterial PCO2 iSTAT 46 MM HG (35-48); Arterial PO2 iSTAT 60 MM HG (80-95); Arterial Total CO2 iSTAT 28 MMO/L (23-27); Arterial pH iSTAT 7.372 (7.35-7.45)
[2022-09-28 04:31] LABS: Basophils % 0.1 % (0.0-0.8); Hematocrit 21.4 VOL% (42.0-52.0); Hemoglobin 6.8 GM/DL (14.0-18.0); Immature Granulocytes % 3.1 %; Immature Granulocytes Absolute 0.47 #; Lymphocytes # 0.9 10*3/uL (1.4-4.0); Lymphocytes % 5.6 % (21.2-54.2); Mean Corpuscular HGB Conc 31.8 GM/DL (32-36); Mean Corpuscular Volume 97.7 FL (87-102); Mean Platelet Volume 13.1 FL (9.6-12.0); Monocytes # 0.6 10*3/uL (0.11-0.8); Monocytes % 3.8 % (1.7-12.7); NRBC # 0.03 10*3/uL; Neutrophils % 87.4 % (38.7-73.9); Platelet Count 68 T/CUMM (130-400); Red Blood Count 2.19 MC/CUMM (3.8-5.5); Red Cell Distribution Width 15.2 % (9.3-17.3); White Blood Count 15.2 T/CUMM (4-12)
[2022-09-28 04:48] LABS: Band Neutrophils 1 % (0-10); Lymphocytes 9 % (20-55); Total Cells Counted 100
[2022-09-28 04:49] LABS: Hypochromia Slight; Microcytosis Slight; Platelet Estimate Decreased
[2022-09-28 05:16] LABS: Alanine Aminotransferase 68 U/L (16-61); Albumin 2.3 G/DL (3.4-5.0); Alkaline Phosphatase 252 U/L (45-117); Aspartate Amino Transferase 121 U/L (0-37); Bilirubin,Total < 0.39 MG/DL (0.20-1.00); Blood Urea Nitrogen 70 MG/DL (7-18); Calcium 7.8 MG/DL (8.5-10.1); Carbon Dioxide 28 MMOL/L (21-32); Chloride 114 MMOL/L (98-107); Glucose 173 MG/DL (74-106); Osmolality,Calculated 318.3 MOS/KG (273-304); Potassium 4.1 MMOL/L (3.5-5.1); Sodium 148 MMOL/L (136-145); Total Protein 5.9 G/DL (6.4-8.2)
[2022-09-28] MEDS: METOPROLOL TARTRATE 5 MG/5 ML VIAL IV SCH ×3 (05:25→18:30)
[2022-09-28] MEDS: INSULIN LISPRO 100 UNIT/ML SUBCUT SCH ×3 (05:34→18:20)
[2022-09-28] MEDS: methylPREDNISolone SOD SUC 40 MG/1 ML VIAL IV SCH ×2 (05:34→18:20)
[2022-09-28] MEDS: DONEPEZIL 10 MG TABLET PEG SCH (08:04)
[2022-09-28] MEDS: FERROUS SULFATE 300 MG/5 ML UDCUP PO SCH ×2 (08:04→21:17)
[2022-09-28] MEDS: FIDAXOMICIN 200 MG TABLET PO SCH ×2 (08:04→21:17)
[2022-09-28] MEDS: PHENYTOIN 100 MG/4 ML UDCUP PER TUBE SCH ×2 (08:04→21:13)
[2022-09-28] MEDS: SERTRALINE 100 MG TABLET PEG SCH (08:04)
[2022-09-28] MEDS: FAMOTIDINE 20 MG/2 ML VIAL IV SCH ×2 (08:05→21:18)
[2022-09-28] MEDS: LEVOFLOXACIN INJ 500 MG/100 ML PREMIX IV SCH (09:20)
[2022-09-28] MEDS: ZINC OXIDE 16% PASTE 57 GM TUBE TOP SCH ×2 (11:34→21:18)
[2022-09-28 14:52] LABS: Hematocrit 26.9 VOL% (42.0-52.0); Hemoglobin 8.7 GM/DL (14.0-18.0)
[2022-09-28] MEDS: MIDAZOLAM DRIP 100 MG/100 ML PREMIX IV PRN (17:52)
[2022-09-28] MEDS: ENOXAPARIN 40 MG/0.4 ML SYRINGE SUBCUT SCH (21:16)
[2022-09-28] MEDS: ATORVASTATIN 80 MG TABLET PEG SCH (21:17)
[2022-09-29] MEDS: ALBUTEROL/IPRATROPIUM 3 ML NEB RESP TX SCH ×4 (00:18→19:24)
[2022-09-29] MEDS: INSULIN LISPRO 100 UNIT/ML SUBCUT SCH ×5 (00:19→23:55)
[2022-09-29] MEDS: METOPROLOL TARTRATE 5 MG/5 ML VIAL IV SCH ×5 (00:20→23:55)
[2022-09-29 03:53] LABS: Basophils % 0.2 % (0.0-0.8); Hematocrit 28.2 VOL% (42.0-52.0); Immature Granulocytes % 5.4 %; Immature Granulocytes Absolute 0.95 #; Lymphocytes # 1.5 10*3/uL (1.4-4.0); Lymphocytes % 8.3 % (21.2-54.2); Mean Corpuscular HGB Conc 31.9 GM/DL (32-36); Mean Corpuscular Volume 95.6 FL (87-102); Mean Platelet Volume 13.7 FL (9.6-12.0); Monocytes % 5.6 % (1.7-12.7); NRBC # 0.06 10*3/uL; Neutrophils % 80.5 % (38.7-73.9); Platelet Count 66 T/CUMM (130-400); Red Blood Count 2.95 MC/CUMM (3.8-5.5); Red Cell Distribution Width 16.7 % (9.3-17.3); White Blood Count 17.7 T/CUMM (4-12)
[2022-09-29 04:12] LABS: Alanine Aminotransferase 91 U/L (16-61); Albumin 2.3 G/DL (3.4-5.0); Alkaline Phosphatase 315 U/L (45-117); Aspartate Amino Transferase 154 U/L (0-37); Bilirubin,Total < 0.39 MG/DL (0.20-1.00); Blood Urea Nitrogen 65 MG/DL (7-18); Calcium 8.1 MG/DL (8.5-10.1); Carbon Dioxide 28 MMOL/L (21-32); Chloride 113 MMOL/L (98-107); Glucose 213 MG/DL (74-106); Osmolality,Calculated 314.6 MOS/KG (273-304); Phosphorous 2.6 MG/DL (2.5-4.9); Potassium 3.9 MMOL/L (3.5-5.1); Sodium 146 MMOL/L (136-145); Total Protein 6.5 G/DL (6.4-8.2)
[2022-09-29 04:41] LABS: Hypochromia Slight; Lymphocytes 10 % (20-55); Nucleated Red Blood Cells 1 /100 WBC (0-5); Platelet Estimate Decreased; Total Cells Counted 100
[2022-09-29 04:42] LABS: Microcytosis Slight
[2022-09-29 05:14] LABS: Arterial Base Excess iSTAT 4 MMOL/L (-2.5-2.5); Arterial Bicarbonate iSTAT 27.7 MMOL/L (20-26); Arterial O2 Saturation iSTAT 99 % (95-100); Arterial PCO2 iSTAT 38 MM HG (35-48); Arterial PO2 iSTAT 116 MM HG (80-95); Arterial Total CO2 iSTAT 29 MMO/L (23-27); Arterial pH iSTAT 7.476 (7.35-7.45)
[2022-09-29] MEDS: methylPREDNISolone SOD SUC 40 MG/1 ML VIAL IV SCH ×2 (06:21→17:23)
[2022-09-29] MEDS: PHENYTOIN 100 MG/4 ML UDCUP PER TUBE SCH ×2 (09:42→20:43)
[2022-09-29] MEDS: FERROUS SULFATE 300 MG/5 ML UDCUP PO SCH ×2 (09:42→20:43)
[2022-09-29] MEDS: LEVOFLOXACIN INJ 500 MG/100 ML PREMIX IV SCH (09:42)
[2022-09-29] MEDS: DONEPEZIL 10 MG TABLET PEG SCH (09:43)
[2022-09-29] MEDS: FAMOTIDINE 20 MG/2 ML VIAL IV SCH ×2 (09:43→20:43)
[2022-09-29] MEDS: SERTRALINE 100 MG TABLET PEG SCH (09:43)
[2022-09-29] MEDS: FIDAXOMICIN 200 MG TABLET PO SCH ×2 (09:43→20:43)
[2022-09-29] MEDS: ZINC OXIDE 16% PASTE 57 GM TUBE TOP SCH ×2 (09:44→20:43)
[2022-09-29] MEDS: MIDAZOLAM DRIP 100 MG/100 ML PREMIX IV PRN (17:20)
[2022-09-29] MEDS: ATORVASTATIN 80 MG TABLET PEG SCH (20:43)
[2022-09-29] MEDS: ENOXAPARIN 40 MG/0.4 ML SYRINGE SUBCUT SCH (20:43)
[2022-09-30] MEDS: ALBUTEROL/IPRATROPIUM 3 ML NEB RESP TX SCH ×4 (00:03→19:22)
[2022-09-30 04:08] LABS: Arterial Base Excess iSTAT 5 MMOL/L (-2.5-2.5); Arterial Bicarbonate iSTAT 30.2 MMOL/L (20-26); Arterial O2 Saturation iSTAT 99 % (95-100); Arterial PCO2 iSTAT 45 MM HG (35-48); Arterial PO2 iSTAT 128 MM HG (80-95); Arterial Total CO2 iSTAT 32 MMO/L (23-27); Arterial pH iSTAT 7.437 (7.35-7.45)
[2022-09-30 04:52] LABS: Basophils # 0.1 10*3/uL (0.0-0.2); Basophils % 0.3 % (0.0-0.8); Eosinophils % 0.1 % (0.00-10.9); Hematocrit 29.1 VOL% (42.0-52.0); Hemoglobin 9.3 GM/DL (14.0-18.0); Immature Granulocytes % 6.7 %; Immature Granulocytes Absolute 1.57 #; Lymphocytes # 1.8 10*3/uL (1.4-4.0); Lymphocytes % 7.7 % (21.2-54.2); Mean Corpuscular Volume 96.4 FL (87-102); Mean Platelet Volume 12.5 FL (9.6-12.0); Monocytes # 1.4 10*3/uL (0.11-0.8); NRBC # 0.04 10*3/uL; Neutrophils % 79.2 % (38.7-73.9); Platelet Count 74 T/CUMM (130-400); Red Blood Count 3.02 MC/CUMM (3.8-5.5); Red Cell Distribution Width 16.1 % (9.3-17.3); White Blood Count 23.6 T/CUMM (4-12)
[2022-09-30 05:18] LABS: Hypochromia Slight; Lymphocytes 9 % (20-55); Platelet Estimate Decreased; Total Cells Counted 100
[2022-09-30 05:22] LABS: Alanine Aminotransferase 134 U/L (16-61); Albumin 2.1 G/DL (3.4-5.0); Alkaline Phosphatase 357 U/L (45-117); Aspartate Amino Transferase 204 U/L (0-37); Bilirubin,Total < 0.39 MG/DL (0.20-1.00); Blood Urea Nitrogen 49 MG/DL (7-18); Calcium 8.2 MG/DL (8.5-10.1); Carbon Dioxide 29 MMOL/L (21-32); Chloride 114 MMOL/L (98-107); Glucose 185 MG/DL (74-106); Osmolality,Calculated 311.3 MOS/KG (273-304); Potassium 3.8 MMOL/L (3.5-5.1); Sodium 148 MMOL/L (136-145); Total Protein 6.6 G/DL (6.4-8.2)
[2022-09-30] MEDS: INSULIN LISPRO 100 UNIT/ML SUBCUT SCH ×4 (05:58→23:37)
[2022-09-30] MEDS: methylPREDNISolone SOD SUC 40 MG/1 ML VIAL IV SCH ×2 (05:59→17:27)
[2022-09-30] MEDS: METOPROLOL TARTRATE 5 MG/5 ML VIAL IV SCH ×4 (05:59→23:38)
[2022-09-30] MEDS: LEVOFLOXACIN INJ 500 MG/100 ML PREMIX IV SCH (09:36)
[2022-09-30] MEDS: FIDAXOMICIN 200 MG TABLET PO SCH ×2 (09:36→20:54)
[2022-09-30] MEDS: FERROUS SULFATE 300 MG/5 ML UDCUP PO SCH ×2 (09:36→20:54)
[2022-09-30] MEDS: PHENYTOIN 100 MG/4 ML UDCUP PER TUBE SCH ×2 (09:37→20:54)
[2022-09-30] MEDS: DONEPEZIL 10 MG TABLET PEG SCH (09:37)
[2022-09-30] MEDS: SERTRALINE 100 MG TABLET PEG SCH (09:38)
[2022-09-30] MEDS: ZINC OXIDE 16% PASTE 57 GM TUBE TOP SCH ×2 (09:39→20:53)
[2022-09-30] MEDS: FAMOTIDINE 20 MG/2 ML VIAL IV SCH ×2 (09:40→20:57)
[2022-09-30] MEDS: MIDAZOLAM DRIP 100 MG/100 ML PREMIX IV PRN (17:28)
[2022-09-30] MEDS: ATORVASTATIN 80 MG TABLET PEG SCH (20:57)
[2022-09-30] MEDS: ENOXAPARIN 40 MG/0.4 ML SYRINGE SUBCUT SCH (20:57)
[2022-09-30] MEDS: levETIRAcetam LIQUID 100 MG/ML 30 ML/BOTTLE PER TUBE SCH (20:57)
[2022-10-01] MEDS: ALBUTEROL/IPRATROPIUM 3 ML NEB RESP TX SCH ×4 (00:30→19:30)
[2022-10-01 04:20] LABS: Arterial Base Excess iSTAT 4 MMOL/L (-2.5-2.5); Arterial Bicarbonate iSTAT 29.8 MMOL/L (20-26); Arterial O2 Saturation iSTAT 99 % (95-100); Arterial PCO2 iSTAT 48 MM HG (35-48); Arterial PO2 iSTAT 155 MM HG (80-95); Arterial Total CO2 iSTAT 31 MMO/L (23-27); Arterial pH iSTAT 7.398 (7.35-7.45)
[2022-10-01 04:25] LABS: Basophils % 0.1 % (0.0-0.8); Eosinophils # 0.1 10*3/uL (0.0-0.87); Eosinophils % 0.2 % (0.00-10.9); Hematocrit 29.4 VOL% (42.0-52.0); Hemoglobin 9.1 GM/DL (14.0-18.0); Immature Granulocytes % 4.7 %; Immature Granulocytes Absolute 1.26 #; Lymphocytes # 1.7 10*3/uL (1.4-4.0); Lymphocytes % 6.2 % (21.2-54.2); Mean Platelet Volume 13.5 FL (9.6-12.0); Monocytes # 1.5 10*3/uL (0.11-0.8); Monocytes % 5.5 % (1.7-12.7); NRBC # 0.02 10*3/uL; Neutrophils % 83.3 % (38.7-73.9); Platelet Count 85 T/CUMM (130-400); Red Blood Count 2.97 MC/CUMM (3.8-5.5); Red Cell Distribution Width 15.7 % (9.3-17.3); White Blood Count 27.1 T/CUMM (4-12)
[2022-10-01 04:41] LABS: Alanine Aminotransferase 112 U/L (16-61); Alkaline Phosphatase 361 U/L (45-117); Aspartate Amino Transferase 128 U/L (0-37); Bilirubin,Total < 0.39 MG/DL (0.20-1.00); Blood Urea Nitrogen 44 MG/DL (7-18); Calcium 8.2 MG/DL (8.5-10.1); Carbon Dioxide 31 MMOL/L (21-32); Chloride 110 MMOL/L (98-107); Glucose 192 MG/DL (74-106); Osmolality,Calculated 303.7 MOS/KG (273-304); Potassium 3.8 MMOL/L (3.5-5.1); Sodium 145 MMOL/L (136-145); Total Protein 6.6 G/DL (6.4-8.2)
[2022-10-01 04:43] LABS: Band Neutrophils 1 % (0-10); Lymphocytes 10 % (20-55); Total Cells Counted 100
[2022-10-01 04:44] LABS: Hypochromia Slight; Platelet Estimate Decreased
[2022-10-01] MEDS: INSULIN LISPRO 100 UNIT/ML SUBCUT SCH ×3 (05:20→17:22)
[2022-10-01] MEDS: methylPREDNISolone SOD SUC 40 MG/1 ML VIAL IV SCH ×2 (05:21→17:27)
[2022-10-01] MEDS: METOPROLOL TARTRATE 5 MG/5 ML VIAL IV SCH ×3 (05:21→17:09)
[2022-10-01] MEDS: PHENYTOIN 100 MG/4 ML UDCUP PER TUBE SCH ×2 (09:41→21:41)
[2022-10-01] MEDS: FERROUS SULFATE 300 MG/5 ML UDCUP PO SCH ×2 (09:41→21:41)
[2022-10-01] MEDS: SERTRALINE 100 MG TABLET PEG SCH (09:41)
[2022-10-01] MEDS: DONEPEZIL 10 MG TABLET PEG SCH (09:41)
[2022-10-01] MEDS: FIDAXOMICIN 200 MG TABLET PO SCH ×2 (09:42→21:41)
[2022-10-01] MEDS: ZINC OXIDE 16% PASTE 57 GM TUBE TOP SCH ×2 (09:43→21:41)
[2022-10-01] MEDS: levETIRAcetam LIQUID 100 MG/ML 30 ML/BOTTLE PER TUBE SCH ×2 (09:48→21:40)
[2022-10-01] MEDS: FAMOTIDINE 20 MG/2 ML VIAL IV SCH ×2 (09:49→21:41)
[2022-10-01] MEDS: LEVOFLOXACIN INJ 500 MG/100 ML PREMIX IV SCH (09:52)
[2022-10-01] MEDS: MIDAZOLAM DRIP 100 MG/100 ML PREMIX IV PRN (17:06)
[2022-10-01] MEDS: ENOXAPARIN 40 MG/0.4 ML SYRINGE SUBCUT SCH (21:41)
[2022-10-01] MEDS: ATORVASTATIN 80 MG TABLET PEG SCH (21:41)
[2022-10-02] MEDS: ALBUTEROL/IPRATROPIUM 3 ML NEB RESP TX SCH ×4 (00:10→19:30)
[2022-10-02] MEDS: METOPROLOL TARTRATE 5 MG/5 ML VIAL IV SCH ×4 (00:40→17:07)
[2022-10-02] MEDS: INSULIN LISPRO 100 UNIT/ML SUBCUT SCH ×4 (00:46→17:07)
[2022-10-02 03:28] LABS: Arterial Base Excess iSTAT 4 MMOL/L (-2.5-2.5); Arterial Bicarbonate iSTAT 30.2 MMOL/L (20-26); Arterial O2 Saturation iSTAT 82 % (95-100); Arterial PCO2 iSTAT 52 MM HG (35-48); Arterial PO2 iSTAT 48 MM HG (80-95); Arterial Total CO2 iSTAT 32 MMO/L (23-27); Arterial pH iSTAT 7.375 (7.35-7.45)
[2022-10-02 04:00] LABS: Basophils % 0.1 % (0.0-0.8); Eosinophils % 0.1 % (0.00-10.9); Hemoglobin 8.6 GM/DL (14.0-18.0); Immature Granulocytes % 3.7 %; Immature Granulocytes Absolute 0.95 #; Lymphocytes # 1.4 10*3/uL (1.4-4.0); Lymphocytes % 5.7 % (21.2-54.2); Mean Corpuscular HGB Conc 31.9 GM/DL (32-36); Mean Corpuscular Volume 97.5 FL (87-102); Mean Platelet Volume 12.7 FL (9.6-12.0); Neutrophils % 86.4 % (38.7-73.9); Platelet Count 97 T/CUMM (130-400); Red Blood Count 2.77 MC/CUMM (3.8-5.5); Red Cell Distribution Width 15.1 % (9.3-17.3); White Blood Count 25.4 T/CUMM (4-12)
[2022-10-02 04:06] LABS: Osmolality,Calculated 300.1 MOS/KG (273-304); Potassium 4.3 MMOL/L (3.5-5.1)
[2022-10-02 04:34] LABS: Lymphocytes 3 % (20-55); Platelet Estimate Decreased; Total Cells Counted 100
[2022-10-02 04:36] LABS: Stomatocytes Few
[2022-10-02 04:50] LABS: Arterial Base Excess iSTAT 7 MMOL/L (-2.5-2.5); Arterial Bicarbonate iSTAT 32.1 MMOL/L (20-26); Arterial O2 Saturation iSTAT 99 % (95-100); Arterial PCO2 iSTAT 48 MM HG (35-48); Arterial PO2 iSTAT 159 MM HG (80-95); Arterial Total CO2 iSTAT 34 MMO/L (23-27); Arterial pH iSTAT 7.438 (7.35-7.45)
[2022-10-02] MEDS: methylPREDNISolone SOD SUC 40 MG/1 ML VIAL IV SCH ×2 (06:37→17:08)
[2022-10-02] MEDS: ALBUTEROL 2.5 MG/3 ML NEB RESP TX PRN (07:40)
[2022-10-02] MEDS: MIDAZOLAM DRIP 100 MG/100 ML PREMIX IV PRN ×2 (08:11→20:14)
[2022-10-02] MEDS: ZINC OXIDE 16% PASTE 57 GM TUBE TOP SCH ×2 (08:27→21:38)
[2022-10-02] MEDS: FERROUS SULFATE 300 MG/5 ML UDCUP PO SCH ×2 (08:27→21:38)
[2022-10-02] MEDS: DONEPEZIL 10 MG TABLET PEG SCH (08:27)
[2022-10-02] MEDS: FIDAXOMICIN 200 MG TABLET PO SCH ×3 (08:27→21:39)
[2022-10-02] MEDS: PHENYTOIN 100 MG/4 ML UDCUP PER TUBE SCH ×3 (08:27→21:38)
[2022-10-02] MEDS: SERTRALINE 100 MG TABLET PEG SCH (08:28)
[2022-10-02] MEDS: LEVOFLOXACIN INJ 500 MG/100 ML PREMIX IV SCH (08:28)
[2022-10-02] MEDS: FAMOTIDINE 20 MG/2 ML VIAL IV SCH ×2 (08:28→21:39)
[2022-10-02] MEDS: levETIRAcetam LIQUID 100 MG/ML 30 ML/BOTTLE PER TUBE SCH ×2 (08:32→21:40)
[2022-10-02] MEDS ORDERED: IPRATROPIUM 500 MCG/2.5 ML NEB RESP TX ONE (13:14)
[2022-10-02] MEDS: fentaNYL INJ 1,250 MCG in SODIUM CHLORIDE 0.9% 225 ML IV PRN (20:59)
[2022-10-02] MEDS: ATORVASTATIN 80 MG TABLET PEG SCH (21:39)
[2022-10-02] MEDS: ENOXAPARIN 40 MG/0.4 ML SYRINGE SUBCUT SCH (21:39)
[2022-10-03] MEDS: ALBUTEROL/IPRATROPIUM 3 ML NEB RESP TX SCH ×4 (00:15→20:15)
[2022-10-03] MEDS: METOPROLOL TARTRATE 5 MG/5 ML VIAL IV SCH ×5 (00:17→23:43)
[2022-10-03] MEDS: INSULIN LISPRO 100 UNIT/ML SUBCUT SCH ×5 (00:21→23:47)
[2022-10-03 03:05] LABS: Arterial Base Excess iSTAT 7 MMOL/L (-2.5-2.5); Arterial Bicarbonate iSTAT 32.4 MMOL/L (20-26); Arterial O2 Saturation iSTAT 87 % (95-100); Arterial PCO2 iSTAT 53 MM HG (35-48); Arterial PO2 iSTAT 55 MM HG (80-95); Arterial Total CO2 iSTAT 34 MMO/L (23-27); Arterial pH iSTAT 7.398 (7.35-7.45)
[2022-10-03 03:58] LABS: Basophils % 0.1 % (0.0-0.8); Hematocrit 26.7 VOL% (42.0-52.0); Hemoglobin 8.3 GM/DL (14.0-18.0); Immature Granulocytes % 2.7 %; Immature Granulocytes Absolute 0.56 #; Lymphocytes # 1.4 10*3/uL (1.4-4.0); Lymphocytes % 6.9 % (21.2-54.2); Mean Corpuscular HGB Conc 31.1 GM/DL (32-36); Mean Corpuscular Volume 98.2 FL (87-102); Mean Platelet Volume 12.5 FL (9.6-12.0); Monocytes # 0.7 10*3/uL (0.11-0.8); Monocytes % 3.2 % (1.7-12.7); Neutrophils % 87.1 % (38.7-73.9); Platelet Count 97 T/CUMM (130-400); Red Blood Count 2.72 MC/CUMM (3.8-5.5); Red Cell Distribution Width 14.8 % (9.3-17.3); White Blood Count 20.8 T/CUMM (4-12)
[2022-10-03 04:14] LABS: Osmolality,Calculated 299.1 MOS/KG (273-304); Potassium 4.9 MMOL/L (3.5-5.1)
[2022-10-03 04:17] LABS: Lymphocytes 7 % (20-55); Platelet Estimate Decreased; Total Cells Counted 100
[2022-10-03 04:18] LABS: Hypochromia Slight
[2022-10-03 05:10] LABS: Arterial Base Excess iSTAT 3 MMOL/L (-2.5-2.5); Arterial Bicarbonate iSTAT 29.8 MMOL/L (20-26); Arterial O2 Saturation iSTAT 99 % (95-100); Arterial PCO2 iSTAT 57 MM HG (35-48); Arterial PO2 iSTAT 134 MM HG (80-95); Arterial Total CO2 iSTAT 31 MMO/L (23-27); Arterial pH iSTAT 7.328 (7.35-7.45)
[2022-10-03] MEDS: methylPREDNISolone SOD SUC 40 MG/1 ML VIAL IV SCH ×2 (05:40→18:42)
[2022-10-03] MEDS: ALBUTEROL 2.5 MG/3 ML NEB RESP TX PRN ×2 (07:33→13:10)
[2022-10-03] MEDS: ZINC OXIDE 16% PASTE 57 GM TUBE TOP SCH ×2 (09:23→21:15)
[2022-10-03] MEDS: DONEPEZIL 10 MG TABLET PEG SCH (09:23)
[2022-10-03] MEDS: FERROUS SULFATE 300 MG/5 ML UDCUP PO SCH ×2 (09:23→21:11)
[2022-10-03] MEDS: LEVOFLOXACIN INJ 500 MG/100 ML PREMIX IV SCH (09:23)
[2022-10-03] MEDS: FIDAXOMICIN 200 MG TABLET PO SCH ×2 (09:23→21:11)
[2022-10-03] MEDS: levETIRAcetam LIQUID 100 MG/ML 30 ML/BOTTLE PER TUBE SCH ×2 (09:23→21:50)
[2022-10-03] MEDS: PHENYTOIN 100 MG/4 ML UDCUP PER TUBE SCH ×2 (09:23→21:11)
[2022-10-03] MEDS: FAMOTIDINE 20 MG/2 ML VIAL IV SCH ×2 (09:26→21:11)
[2022-10-03] MEDS: SERTRALINE 100 MG TABLET PEG SCH (09:27)
[2022-10-03] MEDS: fentaNYL INJ 1,250 MCG in SODIUM CHLORIDE 0.9% 225 ML IV PRN (16:30)
[2022-10-03] MEDS ORDERED: IPRATROPIUM 500 MCG/2.5 ML NEB RESP TX ONE (19:13)
[2022-10-03] MEDS: MIDAZOLAM DRIP 100 MG/100 ML PREMIX IV PRN (21:03)
[2022-10-03] MEDS: ATORVASTATIN 80 MG TABLET PEG SCH (21:11)
[2022-10-03] MEDS: ENOXAPARIN 40 MG/0.4 ML SYRINGE SUBCUT SCH (21:12)
[2022-10-04] MEDS: ALBUTEROL/IPRATROPIUM 3 ML NEB RESP TX SCH ×4 (00:08→20:44)
[2022-10-04 03:57] LABS: Basophils % 0.2 % (0.0-0.8); Hematocrit 26.8 VOL% (42.0-52.0); Hemoglobin 8.6 GM/DL (14.0-18.0); Immature Granulocytes % 2.5 %; Immature Granulocytes Absolute 0.44 #; Lymphocytes # 1.2 10*3/uL (1.4-4.0); Lymphocytes % 6.9 % (21.2-54.2); Mean Corpuscular HGB Conc 32.1 GM/DL (32-36); Mean Corpuscular Volume 96.4 FL (87-102); Mean Platelet Volume 12.3 FL (9.6-12.0); Monocytes # 0.5 10*3/uL (0.11-0.8); Monocytes % 2.9 % (1.7-12.7); Neutrophils % 87.5 % (38.7-73.9); Platelet Count 105 T/CUMM (130-400); Red Blood Count 2.78 MC/CUMM (3.8-5.5); White Blood Count 17.9 T/CUMM (4-12)
[2022-10-04 04:13] LABS: Calcium 7.9 MG/DL (8.5-10.1); Osmolality,Calculated 289.7 MOS/KG (273-304); Potassium 4.9 MMOL/L (3.5-5.1)
[2022-10-04 04:21] LABS: Arterial PO2 iSTAT 142 MM HG (80-95)
[2022-10-04 04:22] LABS: Band Neutrophils 1 % (0-10); Hypochromia Slight; Lymphocytes 11 % (20-55); Platelet Estimate Decreased; Total Cells Counted 100
[2022-10-04 04:28] LABS: Arterial Base Excess iSTAT 5 MMOL/L (-2.5-2.5); Arterial O2 Saturation iSTAT 99 % (95-100); Arterial PCO2 iSTAT 49 MM HG (35-48); Arterial PO2 iSTAT 162 MM HG (80-95); Arterial Total CO2 iSTAT 33 MMO/L (23-27); Arterial pH iSTAT 7.408 (7.35-7.45)
[2022-10-04] MEDS: METOPROLOL TARTRATE 5 MG/5 ML VIAL IV SCH ×4 (05:44→23:32)
[2022-10-04] MEDS: methylPREDNISolone SOD SUC 40 MG/1 ML VIAL IV SCH ×2 (05:45→17:45)
[2022-10-04] MEDS: INSULIN LISPRO 100 UNIT/ML SUBCUT SCH ×4 (05:48→23:38)
[2022-10-04] MEDS: ALBUTEROL 2.5 MG/3 ML NEB RESP TX PRN ×2 (07:58→15:29)
[2022-10-04] MEDS: FIDAXOMICIN 200 MG TABLET PO SCH ×2 (09:11→20:36)
[2022-10-04] MEDS: DONEPEZIL 10 MG TABLET PEG SCH (09:11)
[2022-10-04] MEDS: FERROUS SULFATE 300 MG/5 ML UDCUP PO SCH ×2 (09:11→20:36)
[2022-10-04] MEDS: PHENYTOIN 100 MG/4 ML UDCUP PER TUBE SCH ×2 (09:11→20:36)
[2022-10-04] MEDS: SERTRALINE 100 MG TABLET PEG SCH (09:11)
[2022-10-04] MEDS: LEVOFLOXACIN INJ 500 MG/100 ML PREMIX IV SCH (09:12)
[2022-10-04] MEDS: FAMOTIDINE 20 MG/2 ML VIAL IV SCH ×2 (09:12→20:36)
[2022-10-04] MEDS: ZINC OXIDE 16% PASTE 57 GM TUBE TOP SCH ×2 (09:12→20:41)
[2022-10-04] MEDS: levETIRAcetam LIQUID 100 MG/ML 30 ML/BOTTLE PER TUBE SCH ×2 (09:12→20:36)
[2022-10-04] MEDS: fentaNYL INJ 1,250 MCG in SODIUM CHLORIDE 0.9% 225 ML IV PRN (09:14)
[2022-10-04] MEDS: ENOXAPARIN 40 MG/0.4 ML SYRINGE SUBCUT SCH (20:36)
[2022-10-04] MEDS: ATORVASTATIN 80 MG TABLET PEG SCH (20:36)
[2022-10-05] MEDS: ALBUTEROL/IPRATROPIUM 3 ML NEB RESP TX SCH ×3 (00:55→13:22)
[2022-10-05] MEDS: MIDAZOLAM DRIP 100 MG/100 ML PREMIX IV PRN (01:58)
[2022-10-05 03:52] LABS: Basophils % 0.1 % (0.0-0.8); Hematocrit 25.8 VOL% (42.0-52.0); Hemoglobin 8.3 GM/DL (14.0-18.0); Immature Granulocytes % 1.7 %; Immature Granulocytes Absolute 0.27 #; Lymphocytes # 1.1 10*3/uL (1.4-4.0); Lymphocytes % 7.1 % (21.2-54.2); Mean Corpuscular HGB Conc 32.2 GM/DL (32-36); Mean Corpuscular Volume 94.9 FL (87-102); Mean Platelet Volume 12.3 FL (9.6-12.0); Monocytes # 0.5 10*3/uL (0.11-0.8); Monocytes % 3.1 % (1.7-12.7); Platelet Count 116 T/CUMM (130-400); Red Blood Count 2.72 MC/CUMM (3.8-5.5); White Blood Count 15.7 T/CUMM (4-12)
[2022-10-05 04:02] LABS: Calcium 8.2 MG/DL (8.5-10.1); Osmolality,Calculated 288.7 MOS/KG (273-304); Potassium 4.8 MMOL/L (3.5-5.1)
[2022-10-05 04:07] LABS: Arterial Base Excess iSTAT 6 MMOL/L (-2.5-2.5); Arterial Bicarbonate iSTAT 29.3 MMOL/L (20-26); Arterial O2 Saturation iSTAT 99 % (95-100); Arterial PCO2 iSTAT 36 MM HG (35-48); Arterial PO2 iSTAT 108 MM HG (80-95); Arterial Total CO2 iSTAT 30 MMO/L (23-27); Arterial pH iSTAT 7.521 (7.35-7.45)
[2022-10-05] MEDS: INSULIN LISPRO 100 UNIT/ML SUBCUT SCH ×4 (05:22→23:49)
[2022-10-05] MEDS: METOPROLOL TARTRATE 5 MG/5 ML VIAL IV SCH ×3 (05:23→18:18)
[2022-10-05] MEDS: methylPREDNISolone SOD SUC 40 MG/1 ML VIAL IV SCH ×2 (05:26→18:18)
[2022-10-05] MEDS: FAMOTIDINE 20 MG/2 ML VIAL IV SCH ×2 (09:42→21:45)
[2022-10-05] MEDS: INSULIN GLARGINE 100 UNIT/ML SUBCUT SCH (09:42)
[2022-10-05] MEDS: levETIRAcetam LIQUID 100 MG/ML 30 ML/BOTTLE PER TUBE SCH ×2 (09:44→23:15)
[2022-10-05] MEDS: ZINC OXIDE 16% PASTE 57 GM TUBE TOP SCH ×2 (09:44→21:45)
[2022-10-05] MEDS: PHENYTOIN 100 MG/4 ML UDCUP PER TUBE SCH ×2 (09:44→21:46)
[2022-10-05] MEDS: FERROUS SULFATE 300 MG/5 ML UDCUP PO SCH ×2 (09:45→21:46)
[2022-10-05] MEDS: FIDAXOMICIN 200 MG TABLET PO SCH ×2 (09:45→21:46)
[2022-10-05] MEDS: LEVOFLOXACIN INJ 500 MG/100 ML PREMIX IV SCH (09:45)
[2022-10-05] MEDS: SERTRALINE 100 MG TABLET PEG SCH (09:45)
[2022-10-05] MEDS: DONEPEZIL 10 MG TABLET PEG SCH (09:45)
[2022-10-05] MEDS: IPRATROPIUM 500 MCG/2.5 ML NEB RESP TX SCH ×2 (14:35→23:41)
[2022-10-05] MEDS: LEVALBUTEROL 1.25 MG/3 ML NEB RESP TX SCH ×2 (14:35→23:41)
[2022-10-05] MEDS ORDERED: METOPROLOL TARTRATE 25 MG TABLET PEG SCH (21:00)
[2022-10-05] MEDS: fentaNYL INJ 1,250 MCG in SODIUM CHLORIDE 0.9% 225 ML IV PRN (21:10)
[2022-10-05] MEDS: ATORVASTATIN 80 MG TABLET PEG SCH (21:45)
[2022-10-06] MEDS: METOPROLOL TARTRATE 5 MG/5 ML VIAL IV SCH ×4 (00:08→18:24)
[2022-10-06 03:43] LABS: Arterial Base Excess iSTAT 3 MMOL/L (-2.5-2.5); Arterial O2 Saturation iSTAT 81 % (95-100); Arterial PCO2 iSTAT 42 MM HG (35-48); Arterial PO2 iSTAT 44 MM HG (80-95); Arterial Total CO2 iSTAT 29 MMO/L (23-27); Arterial pH iSTAT 7.436 (7.35-7.45)
[2022-10-06 03:49] LABS: Arterial Base Excess iSTAT 5 MMOL/L (-2.5-2.5); Arterial Bicarbonate iSTAT 29.1 MMOL/L (20-26); Arterial O2 Saturation iSTAT 98 % (95-100); Arterial PCO2 iSTAT 43 MM HG (35-48); Arterial PO2 iSTAT 105 MM HG (80-95); Arterial Total CO2 iSTAT 30 MMO/L (23-27); Arterial pH iSTAT 7.444 (7.35-7.45)
[2022-10-06 03:55] LABS: Basophils % 0.1 % (0.0-0.8); Eosinophils % 0.1 % (0.00-10.9); Hematocrit 26.5 VOL% (42.0-52.0); Hemoglobin 8.5 GM/DL (14.0-18.0); Immature Granulocytes % 1.3 %; Lymphocytes # 1.3 10*3/uL (1.4-4.0); Lymphocytes % 8.1 % (21.2-54.2); Mean Corpuscular HGB Conc 32.1 GM/DL (32-36); Mean Platelet Volume 12.2 FL (9.6-12.0); Monocytes # 0.5 10*3/uL (0.11-0.8); Monocytes % 3.3 % (1.7-12.7); Neutrophils % 87.1 % (38.7-73.9); Platelet Count 133 T/CUMM (130-400); Red Blood Count 2.76 MC/CUMM (3.8-5.5); Red Cell Distribution Width 14.1 % (9.3-17.3)
[2022-10-06 04:07] LABS: PT Patient Result 10.9 SECS (10.1-12.1)
[2022-10-06 04:09] LABS: Calcium 8.3 MG/DL (8.5-10.1); Osmolality,Calculated 287.4 MOS/KG (273-304); Potassium 4.4 MMOL/L (3.5-5.1)
[2022-10-06] MEDS: INSULIN LISPRO 100 UNIT/ML SUBCUT SCH ×3 (06:14→18:23)
[2022-10-06] MEDS: methylPREDNISolone SOD SUC 40 MG/1 ML VIAL IV SCH ×2 (06:14→18:23)
[2022-10-06] MEDS: IPRATROPIUM 500 MCG/2.5 ML NEB RESP TX SCH ×3 (07:15→23:40)
[2022-10-06] MEDS: LEVALBUTEROL 1.25 MG/3 ML NEB RESP TX SCH ×3 (07:15→23:40)
[2022-10-06] MEDS: LEVOFLOXACIN INJ 500 MG/100 ML PREMIX IV SCH (09:00)
[2022-10-06] MEDS: FAMOTIDINE 20 MG/2 ML VIAL IV SCH ×2 (09:10→20:54)
[2022-10-06] MEDS: LACTATED RINGERS 1,000 ML IV SCH (09:30)
[2022-10-06] MEDS ORDERED: ROCURONIUM 50 MG/5 ML VIAL IV ONE (10:48)
[2022-10-06] MEDS ORDERED: propofoL 200 MG/20 ML VIAL IV ONE (10:48)
[2022-10-06] MEDS ORDERED: PHENYLEPHRINE 1 MG/10 ML SYRINGE IV ONE (10:48)
[2022-10-06] MEDS: FERROUS SULFATE 300 MG/5 ML UDCUP PO SCH ×2 (12:23→20:54)
[2022-10-06] MEDS: ZINC OXIDE 16% PASTE 57 GM TUBE TOP SCH ×2 (12:23→20:55)
[2022-10-06] MEDS: PHENYTOIN 100 MG/4 ML UDCUP PER TUBE SCH ×2 (12:23→20:54)
[2022-10-06] MEDS: FIDAXOMICIN 200 MG TABLET PO SCH ×2 (12:23→20:54)
[2022-10-06] MEDS: DONEPEZIL 10 MG TABLET PEG SCH (12:23)
[2022-10-06] MEDS: INSULIN GLARGINE 100 UNIT/ML SUBCUT SCH (12:24)
[2022-10-06] MEDS: amLODIPine 5 MG TABLET PEG SCH (12:24)
[2022-10-06] MEDS: SERTRALINE 100 MG TABLET PEG SCH (12:24)
[2022-10-06] MEDS: levETIRAcetam LIQUID 100 MG/ML 30 ML/BOTTLE PER TUBE SCH ×2 (12:24→20:55)
[2022-10-06] MEDS: MIDAZOLAM DRIP 100 MG/100 ML PREMIX IV PRN (13:30)
[2022-10-06] MEDS: ATORVASTATIN 80 MG TABLET PEG SCH (20:54)
[2022-10-07] MEDS: METOPROLOL TARTRATE 5 MG/5 ML VIAL IV SCH ×5 (00:54→23:32)
[2022-10-07] MEDS: INSULIN LISPRO 100 UNIT/ML SUBCUT SCH ×5 (00:54→23:32)
[2022-10-07 02:44] LABS: Arterial Base Excess iSTAT 5 MMOL/L (-2.5-2.5); Arterial Bicarbonate iSTAT 27.7 MMOL/L (20-26); Arterial O2 Saturation iSTAT 99 % (95-100); Arterial PCO2 iSTAT 33 MM HG (35-48); Arterial PO2 iSTAT 131 MM HG (80-95); Arterial Total CO2 iSTAT 29 MMO/L (23-27); Arterial pH iSTAT 7.534 (7.35-7.45)
[2022-10-07 03:47] LABS: Basophils % 0.1 % (0.0-0.8); Hematocrit 24.7 VOL% (42.0-52.0); Hemoglobin 7.7 GM/DL (14.0-18.0); Immature Granulocytes Absolute 0.16 #; Lymphocytes # 1.1 10*3/uL (1.4-4.0); Lymphocytes % 7.2 % (21.2-54.2); Mean Corpuscular HGB Conc 31.2 GM/DL (32-36); Mean Corpuscular Volume 97.2 FL (87-102); Mean Platelet Volume 10.9 FL (9.6-12.0); Monocytes # 0.6 10*3/uL (0.11-0.8); Monocytes % 3.9 % (1.7-12.7); Neutrophils % 87.8 % (38.7-73.9); Platelet Count 144 T/CUMM (130-400); Red Blood Count 2.54 MC/CUMM (3.8-5.5); White Blood Count 15.5 T/CUMM (4-12)
[2022-10-07 04:05] LABS: Calcium 8.2 MG/DL (8.5-10.1); Osmolality,Calculated 284.4 MOS/KG (273-304); Potassium 4.3 MMOL/L (3.5-5.1)
[2022-10-07] MEDS: methylPREDNISolone SOD SUC 40 MG/1 ML VIAL IV SCH (05:49)
[2022-10-07] MEDS ORDERED: FUROSEMIDE 40 MG/4 ML VIAL IV ONE (07:40)
[2022-10-07] MEDS ORDERED: SODIUM CHLORIDE 0.9% 1,000 ML IV PRN ×2 (07:40→07:56)
[2022-10-07] MEDS: IPRATROPIUM 500 MCG/2.5 ML NEB RESP TX SCH ×3 (07:41→23:56)
[2022-10-07] MEDS: LEVALBUTEROL 1.25 MG/3 ML NEB RESP TX SCH ×3 (07:41→23:56)
[2022-10-07] MEDS: PHENYTOIN 100 MG/4 ML UDCUP PER TUBE SCH ×2 (08:41→20:32)
[2022-10-07] MEDS: FERROUS SULFATE 300 MG/5 ML UDCUP PO SCH ×2 (08:43→20:32)
[2022-10-07] MEDS: FIDAXOMICIN 200 MG TABLET PO SCH ×2 (08:43→20:32)
[2022-10-07] MEDS: DONEPEZIL 10 MG TABLET PEG SCH (08:43)
[2022-10-07] MEDS: FAMOTIDINE 20 MG/2 ML VIAL IV SCH ×2 (08:44→20:31)
[2022-10-07] MEDS: amLODIPine 5 MG TABLET PEG SCH (08:44)
[2022-10-07] MEDS: SERTRALINE 100 MG TABLET PEG SCH (08:44)
[2022-10-07] MEDS: INSULIN GLARGINE 100 UNIT/ML SUBCUT SCH (08:45)
[2022-10-07] MEDS: LEVOFLOXACIN INJ 500 MG/100 ML PREMIX IV SCH (08:45)
[2022-10-07] MEDS: LACTATED RINGERS 1,000 ML IV SCH (10:30)
[2022-10-07] MEDS: ZINC OXIDE 16% PASTE 57 GM TUBE TOP SCH ×2 (11:32→20:32)
[2022-10-07] MEDS: levETIRAcetam LIQUID 100 MG/ML 30 ML/BOTTLE PER TUBE SCH ×2 (11:33→20:32)
[2022-10-07 16:46] LABS: Arterial Base Excess iSTAT 4 MMOL/L (-2.5-2.5); Arterial O2 Saturation iSTAT 90 % (95-100); Arterial PCO2 iSTAT 44 MM HG (35-48); Arterial PO2 iSTAT 58 MM HG (80-95); Arterial Total CO2 iSTAT 30 MMO/L (23-27); Arterial pH iSTAT 7.432 (7.35-7.45)
[2022-10-07 18:43] LABS: Hematocrit 34.1 VOL% (42.0-52.0); Hemoglobin 10.8 GM/DL (14.0-18.0)
[2022-10-07] MEDS: ATORVASTATIN 80 MG TABLET PEG SCH (20:32)
[2022-10-07] MEDS: DEXTROSE 10% 250 ML BAG IV PRN (23:32)
[2022-10-08 04:22] LABS: Basophils % 0.1 % (0.0-0.8); Eosinophils % 0.1 % (0.00-10.9); Hematocrit 34.2 VOL% (42.0-52.0); Hemoglobin 10.8 GM/DL (14.0-18.0); Immature Granulocytes % 0.7 %; Immature Granulocytes Absolute 0.15 #; Lymphocytes # 1.5 10*3/uL (1.4-4.0); Mean Corpuscular HGB Conc 31.6 GM/DL (32-36); Mean Corpuscular Volume 96.9 FL (87-102); Mean Platelet Volume 11.2 FL (9.6-12.0); Monocytes # 1.1 10*3/uL (0.11-0.8); Monocytes % 5.2 % (1.7-12.7); Neutrophils % 86.9 % (38.7-73.9); Platelet Count 218 T/CUMM (130-400); Red Blood Count 3.53 MC/CUMM (3.8-5.5); Red Cell Distribution Width 14.2 % (9.3-17.3); White Blood Count 21.5 T/CUMM (4-12)
[2022-10-08 04:42] LABS: Calcium 8.6 MG/DL (8.5-10.1); Osmolality,Calculated 280.3 MOS/KG (273-304); Potassium 3.7 MMOL/L (3.5-5.1)
[2022-10-08 04:48] LABS: Lymphocytes 4 % (20-55); Platelet Estimate Adequate; Total Cells Counted 100
[2022-10-08 04:58] LABS: Arterial Base Excess iSTAT 4 MMOL/L (-2.5-2.5); Arterial Bicarbonate iSTAT 28.3 MMOL/L (20-26); Arterial O2 Saturation iSTAT 93 % (95-100); Arterial PCO2 iSTAT 41 MM HG (35-48); Arterial PO2 iSTAT 63 MM HG (80-95); Arterial Total CO2 iSTAT 30 MMO/L (23-27); Arterial pH iSTAT 7.449 (7.35-7.45)
[2022-10-08] MEDS: INSULIN LISPRO 100 UNIT/ML SUBCUT SCH ×4 (05:08→23:23)
[2022-10-08] MEDS: METOPROLOL TARTRATE 5 MG/5 ML VIAL IV SCH ×3 (05:08→18:09)
[2022-10-08] MEDS: LEVALBUTEROL 1.25 MG/3 ML NEB RESP TX SCH (07:26)
[2022-10-08] MEDS: IPRATROPIUM 500 MCG/2.5 ML NEB RESP TX SCH ×3 (07:26→23:55)
[2022-10-08] MEDS ORDERED: MAGNESIUM SULF RIDER 2 GM/50 ML PREMIX IV PRN (08:33)
[2022-10-08] MEDS ORDERED: MAGNESIUM SULF RIDER 4 GM/100 ML PREMIX IV PRN (08:33)
[2022-10-08] MEDS: methylPREDNISolone SOD SUC 40 MG/1 ML VIAL IV SCH (09:03)
[2022-10-08] MEDS: FERROUS SULFATE 300 MG/5 ML UDCUP PO SCH ×2 (09:04→20:17)
[2022-10-08] MEDS: levETIRAcetam LIQUID 100 MG/ML 30 ML/BOTTLE PER TUBE SCH ×2 (09:04→20:17)
[2022-10-08] MEDS: FAMOTIDINE 20 MG/2 ML VIAL IV SCH ×2 (09:04→20:17)
[2022-10-08] MEDS: PHENYTOIN 100 MG/4 ML UDCUP PER TUBE SCH ×2 (09:04→20:17)
[2022-10-08] MEDS: DONEPEZIL 10 MG TABLET PEG SCH (09:05)
[2022-10-08] MEDS: amLODIPine 5 MG TABLET PEG SCH (09:06)
[2022-10-08] MEDS: INSULIN GLARGINE 100 UNIT/ML SUBCUT SCH (09:06)
[2022-10-08] MEDS: SERTRALINE 100 MG TABLET PEG SCH (09:06)
[2022-10-08] MEDS: FIDAXOMICIN 200 MG TABLET PO SCH ×2 (09:06→20:17)
[2022-10-08] MEDS: ZINC OXIDE 16% PASTE 57 GM TUBE TOP SCH ×2 (09:07→20:17)
[2022-10-08] MEDS ORDERED: FUROSEMIDE 40 MG/4 ML VIAL IV ONE (09:20)
[2022-10-08] MEDS: ALBUTEROL 2.5 MG/3 ML NEB RESP TX SCH ×2 (14:46→23:55)
[2022-10-08] MEDS: DEXTROSE 10% 250 ML BAG IV PRN (18:09)
[2022-10-08] MEDS: ATORVASTATIN 80 MG TABLET PEG SCH (20:17)
[2022-10-09] MEDS: METOPROLOL TARTRATE 5 MG/5 ML VIAL IV SCH ×4 (00:26→17:53)
[2022-10-09 04:46] LABS: Arterial Base Excess iSTAT 5 MMOL/L (-2.5-2.5); Arterial Bicarbonate iSTAT 29.6 MMOL/L (20-26); Arterial O2 Saturation iSTAT 96 % (95-100); Arterial PCO2 iSTAT 43 MM HG (35-48); Arterial PO2 iSTAT 81 MM HG (80-95); Arterial Total CO2 iSTAT 31 MMO/L (23-27); Arterial pH iSTAT 7.451 (7.35-7.45)
[2022-10-09 05:00] LABS: Basophils % 0.2 % (0.0-0.8); Eosinophils % 0.2 % (0.00-10.9); Hematocrit 35.8 VOL% (42.0-52.0); Hemoglobin 11.2 GM/DL (14.0-18.0); Immature Granulocytes % 0.6 %; Immature Granulocytes Absolute 0.07 #; Lymphocytes # 1.4 10*3/uL (1.4-4.0); Lymphocytes % 11.3 % (21.2-54.2); Mean Corpuscular HGB Conc 31.3 GM/DL (32-36); Mean Corpuscular Volume 97.8 FL (87-102); Mean Platelet Volume 10.8 FL (9.6-12.0); Monocytes # 0.9 10*3/uL (0.11-0.8); Monocytes % 6.8 % (1.7-12.7); Neutrophils % 80.9 % (38.7-73.9); Platelet Count 209 T/CUMM (130-400); Red Blood Count 3.66 MC/CUMM (3.8-5.5); White Blood Count 12.7 T/CUMM (4-12)
[2022-10-09] MEDS: INSULIN LISPRO 100 UNIT/ML SUBCUT SCH (05:15)
[2022-10-09 05:19] LABS: Calcium 8.5 MG/DL (8.5-10.1); Osmolality,Calculated 279.5 MOS/KG (273-304); Potassium 3.8 MMOL/L (3.5-5.1)
[2022-10-09] MEDS: IPRATROPIUM 500 MCG/2.5 ML NEB RESP TX SCH ×3 (07:30→22:30)
[2022-10-09] MEDS: ALBUTEROL 2.5 MG/3 ML NEB RESP TX SCH ×3 (07:30→22:30)
[2022-10-09] MEDS: DONEPEZIL 10 MG TABLET PEG SCH (09:17)
[2022-10-09] MEDS: levETIRAcetam LIQUID 100 MG/ML 30 ML/BOTTLE PER TUBE SCH ×2 (09:17→21:38)
[2022-10-09] MEDS: FERROUS SULFATE 300 MG/5 ML UDCUP PO SCH ×2 (09:17→21:37)
[2022-10-09] MEDS: ZINC OXIDE 16% PASTE 57 GM TUBE TOP SCH ×2 (09:17→21:37)
[2022-10-09] MEDS: INSULIN GLARGINE 100 UNIT/ML SUBCUT SCH (09:17)
[2022-10-09] MEDS: FIDAXOMICIN 200 MG TABLET PO SCH ×2 (09:17→22:31)
[2022-10-09] MEDS: PHENYTOIN 100 MG/4 ML UDCUP PER TUBE SCH ×2 (09:17→21:37)
[2022-10-09] MEDS: methylPREDNISolone SOD SUC 40 MG/1 ML VIAL IV SCH (09:18)
[2022-10-09] MEDS: amLODIPine 5 MG TABLET PEG SCH (09:18)
[2022-10-09] MEDS: SERTRALINE 100 MG TABLET PEG SCH (09:18)
[2022-10-09] MEDS: FAMOTIDINE 20 MG/2 ML VIAL IV SCH ×2 (09:18→21:38)
[2022-10-09] MEDS: ATORVASTATIN 80 MG TABLET PEG SCH (21:37)
[2022-10-09] MEDS: ENOXAPARIN 40 MG/0.4 ML SYRINGE SUBCUT SCH (21:37)
[2022-10-10] MEDS: METOPROLOL TARTRATE 5 MG/5 ML VIAL IV SCH ×4 (00:48→18:05)
[2022-10-10 05:44] LABS: Basophils % 0.2 % (0.0-0.8); Eosinophils % 0.3 % (0.00-10.9); Hematocrit 30.8 VOL% (42.0-52.0); Hemoglobin 9.8 GM/DL (14.0-18.0); Immature Granulocytes % 0.5 %; Immature Granulocytes Absolute 0.06 #; Lymphocytes # 1.4 10*3/uL (1.4-4.0); Lymphocytes % 11.9 % (21.2-54.2); Mean Corpuscular HGB Conc 31.8 GM/DL (32-36); Mean Platelet Volume 11.1 FL (9.6-12.0); Monocytes # 0.9 10*3/uL (0.11-0.8); Monocytes % 8.2 % (1.7-12.7); Neutrophils % 78.9 % (38.7-73.9); Platelet Count 229 T/CUMM (130-400); Red Blood Count 3.21 MC/CUMM (3.8-5.5); Red Cell Distribution Width 13.8 % (9.3-17.3); White Blood Count 11.5 T/CUMM (4-12)
[2022-10-10 06:08] LABS: Alanine Aminotransferase 76 U/L (16-61); Albumin 2.3 G/DL (3.4-5.0); Alkaline Phosphatase 260 U/L (45-117); Aspartate Amino Transferase 62 U/L (0-37); Bilirubin,Total < 0.39 MG/DL (0.20-1.00); Blood Urea Nitrogen 21 MG/DL (7-18); Calcium 8.1 MG/DL (8.5-10.1); Carbon Dioxide 30 MMOL/L (21-32); Chloride 105 MMOL/L (98-107); Glucose 176 MG/DL (74-106); Osmolality,Calculated 287.3 MOS/KG (273-304); Potassium 3.8 MMOL/L (3.5-5.1); Sodium 141 MMOL/L (136-145); Total Protein 6.9 G/DL (6.4-8.2)
[2022-10-10] MEDS: IPRATROPIUM 500 MCG/2.5 ML NEB RESP TX SCH ×3 (07:45→22:20)
[2022-10-10] MEDS: ALBUTEROL 2.5 MG/3 ML NEB RESP TX SCH ×3 (07:45→22:20)
[2022-10-10] MEDS: PHENYTOIN 100 MG/4 ML UDCUP PER TUBE SCH ×2 (10:01→20:01)
[2022-10-10] MEDS: ZINC OXIDE 16% PASTE 57 GM TUBE TOP SCH ×2 (10:01→20:01)
[2022-10-10] MEDS: DONEPEZIL 10 MG TABLET PEG SCH (10:01)
[2022-10-10] MEDS: INSULIN GLARGINE 100 UNIT/ML SUBCUT SCH (10:02)
[2022-10-10] MEDS: levETIRAcetam LIQUID 100 MG/ML 30 ML/BOTTLE PER TUBE SCH ×2 (10:02→20:02)
[2022-10-10] MEDS: methylPREDNISolone SOD SUC 40 MG/1 ML VIAL IV SCH (10:02)
[2022-10-10] MEDS: amLODIPine 5 MG TABLET PEG SCH (10:02)
[2022-10-10] MEDS: FERROUS SULFATE 300 MG/5 ML UDCUP PO SCH ×2 (10:02→20:01)
[2022-10-10] MEDS: FAMOTIDINE 20 MG/2 ML VIAL IV SCH ×2 (10:02→20:00)
[2022-10-10] MEDS: SERTRALINE 100 MG TABLET PEG SCH (10:03)
[2022-10-10 13:32] LABS: % Iron Saturation 38.2 % (18-50); Ferritin 618.5 ng/mL (26-388)
[2022-10-10 14:03] LABS: Folate 17.81 NG/ML (5.38-24.0); Vitamin B12 > 2000 PG/ML (211-911)
[2022-10-10] MEDS: ATORVASTATIN 80 MG TABLET PEG SCH (20:01)
[2022-10-10] MEDS: ENOXAPARIN 40 MG/0.4 ML SYRINGE SUBCUT SCH (20:02)
[2022-10-11] MEDS: METOPROLOL TARTRATE 5 MG/5 ML VIAL IV SCH ×3 (00:25→18:53)
[2022-10-11 05:44] LABS: Calcium 8.3 MG/DL (8.5-10.1); Osmolality,Calculated 289.3 MOS/KG (273-304); Potassium 4.6 MMOL/L (3.5-5.1)
[2022-10-11] MEDS: ALBUTEROL 2.5 MG/3 ML NEB RESP TX SCH (07:20)
[2022-10-11] MEDS: IPRATROPIUM 500 MCG/2.5 ML NEB RESP TX SCH (07:20)
[2022-10-11 07:25] LABS: Basophils % 0.2 % (0.0-0.8); Eosinophils % 0.4 % (0.00-10.9); Hematocrit 35.4 VOL% (42.0-52.0); Hemoglobin 11.3 GM/DL (14.0-18.0); Immature Granulocytes % 0.4 %; Immature Granulocytes Absolute 0.04 #; Lymphocytes # 1.3 10*3/uL (1.4-4.0); Lymphocytes % 12.7 % (21.2-54.2); Mean Corpuscular HGB Conc 31.9 GM/DL (32-36); Mean Corpuscular Volume 96.5 FL (87-102); Mean Platelet Volume 10.5 FL (9.6-12.0); Monocytes # 0.8 10*3/uL (0.11-0.8); Monocytes % 7.9 % (1.7-12.7); Neutrophils % 78.4 % (38.7-73.9); Platelet Count 248 T/CUMM (130-400); Red Blood Count 3.67 MC/CUMM (3.8-5.5); White Blood Count 10.1 T/CUMM (4-12)
[2022-10-11 07:49] LABS: Anisocytosis 1+; Macrocytosis Slight; Platelet Estimate Normal
[2022-10-11] MEDS: DONEPEZIL 10 MG TABLET PEG SCH (10:22)
[2022-10-11] MEDS: FERROUS SULFATE 300 MG/5 ML UDCUP PO SCH ×2 (10:22→20:30)
[2022-10-11] MEDS: ZINC OXIDE 16% PASTE 57 GM TUBE TOP SCH ×2 (10:22→20:31)
[2022-10-11] MEDS: PHENYTOIN 100 MG/4 ML UDCUP PER TUBE SCH ×2 (10:22→20:30)
[2022-10-11] MEDS: amLODIPine 5 MG TABLET PEG SCH (10:23)
[2022-10-11] MEDS: levETIRAcetam LIQUID 100 MG/ML 30 ML/BOTTLE PER TUBE SCH ×2 (10:23→20:31)
[2022-10-11] MEDS: INSULIN GLARGINE 100 UNIT/ML SUBCUT SCH (10:23)
[2022-10-11] MEDS: SERTRALINE 100 MG TABLET PEG SCH (10:23)
[2022-10-11] MEDS: methylPREDNISolone SOD SUC 40 MG/1 ML VIAL IV SCH (10:23)
[2022-10-11] MEDS: FAMOTIDINE 20 MG/2 ML VIAL IV SCH ×2 (10:23→20:30)
[2022-10-11] MEDS: ALBUTEROL/IPRATROPIUM 3 ML NEB RESP TX SCH ×2 (14:12→23:50)
[2022-10-11] MEDS: ENOXAPARIN 40 MG/0.4 ML SYRINGE SUBCUT SCH (20:29)
[2022-10-11] MEDS: ATORVASTATIN 80 MG TABLET PEG SCH (20:30)
[2022-10-12] MEDS: METOPROLOL TARTRATE 5 MG/5 ML VIAL IV SCH ×4 (00:49→18:09)
[2022-10-12 06:34] LABS: Calcium 8.1 MG/DL (8.5-10.1); Osmolality,Calculated 285.5 MOS/KG (273-304); Potassium 5.3 MMOL/L (3.5-5.1)
[2022-10-12 07:18] LABS: Basophils % 0.2 % (0.0-0.8); Eosinophils % 0.1 % (0.00-10.9); Hematocrit 45.6 VOL% (42.0-52.0); Hemoglobin 13.8 GM/DL (14.0-18.0); Immature Granulocytes % 0.2 %; Immature Granulocytes Absolute 0.04 #; Lymphocytes # 1.6 10*3/uL (1.4-4.0); Lymphocytes % 9.5 % (21.2-54.2); Mean Corpuscular HGB Conc 30.3 GM/DL (32-36); Mean Corpuscular Volume 101.1 FL (87-102); Mean Platelet Volume 12.4 FL (9.6-12.0); Monocytes # 1.6 10*3/uL (0.11-0.8); Monocytes % 9.4 % (1.7-12.7); Neutrophils % 80.6 % (38.7-73.9); Platelet Count 67 T/CUMM (130-400); Red Blood Count 4.51 MC/CUMM (3.8-5.5); Red Cell Distribution Width 14.3 % (9.3-17.3); White Blood Count 16.8 T/CUMM (4-12)
[2022-10-12] MEDS: ALBUTEROL/IPRATROPIUM 3 ML NEB RESP TX SCH ×2 (07:28→14:49)
[2022-10-12] MEDS ORDERED: SODIUM POLYSTYRENE SULFATE 15 GM/60 ML BOTTLE PO ONE (10:00)
[2022-10-12] MEDS: SERTRALINE 100 MG TABLET PEG SCH (10:12)
[2022-10-12] MEDS: FAMOTIDINE 20 MG/2 ML VIAL IV SCH ×2 (10:13→20:55)
[2022-10-12] MEDS: DONEPEZIL 10 MG TABLET PEG SCH (10:13)
[2022-10-12] MEDS: PHENYTOIN 100 MG/4 ML UDCUP PER TUBE SCH ×2 (10:13→20:55)
[2022-10-12] MEDS: FERROUS SULFATE 300 MG/5 ML UDCUP PO SCH ×2 (10:13→20:55)
[2022-10-12] MEDS: amLODIPine 5 MG TABLET PEG SCH (10:13)
[2022-10-12] MEDS: methylPREDNISolone SOD SUC 40 MG/1 ML VIAL IV SCH (10:14)
[2022-10-12] MEDS: INSULIN GLARGINE 100 UNIT/ML SUBCUT SCH (10:14)
[2022-10-12] MEDS: levETIRAcetam LIQUID 100 MG/ML 30 ML/BOTTLE PER TUBE SCH ×2 (11:37→20:52)
[2022-10-12 12:01] LABS: Basophils % 0.2 % (0.0-0.8); Eosinophils % 0.2 % (0.00-10.9); Hematocrit 39.6 VOL% (42.0-52.0); Hemoglobin 12.4 GM/DL (14.0-18.0); Immature Granulocytes % 0.5 %; Immature Granulocytes Absolute 0.08 #; Lymphocytes # 1.1 10*3/uL (1.4-4.0); Lymphocytes % 6.9 % (21.2-54.2); Mean Corpuscular HGB Conc 31.3 GM/DL (32-36); Mean Corpuscular Volume 97.3 FL (87-102); Mean Platelet Volume 10.5 FL (9.6-12.0); Monocytes # 0.8 10*3/uL (0.11-0.8); Monocytes % 5.1 % (1.7-12.7); Neutrophils % 87.1 % (38.7-73.9); Platelet Count 249 T/CUMM (130-400); Red Blood Count 4.07 MC/CUMM (3.8-5.5); Red Cell Distribution Width 14.2 % (9.3-17.3)
[2022-10-12] MEDS: ZINC OXIDE 16% PASTE 57 GM TUBE TOP SCH ×2 (13:05→20:52)
[2022-10-12] MEDS ORDERED: FUROSEMIDE 40 MG/4 ML VIAL IV ONE (15:00)
[2022-10-12] MEDS: ENOXAPARIN 40 MG/0.4 ML SYRINGE SUBCUT SCH (20:55)
[2022-10-12] MEDS: ATORVASTATIN 80 MG TABLET PEG SCH (20:55)
[2022-10-13] MEDS: METOPROLOL TARTRATE 5 MG/5 ML VIAL IV SCH ×4 (01:07→18:44)
[2022-10-13 06:47] LABS: Basophils % 0.3 % (0.0-0.8); Eosinophils % 0.3 % (0.00-10.9); Hematocrit 32.6 VOL% (42.0-52.0); Hemoglobin 10.2 GM/DL (14.0-18.0); Immature Granulocytes % 0.3 %; Immature Granulocytes Absolute 0.04 #; Lymphocytes # 1.4 10*3/uL (1.4-4.0); Lymphocytes % 12.5 % (21.2-54.2); Mean Corpuscular HGB Conc 31.3 GM/DL (32-36); Mean Corpuscular Volume 99.1 FL (87-102); Mean Platelet Volume 11.2 FL (9.6-12.0); Monocytes # 1.1 10*3/uL (0.11-0.8); Monocytes % 9.8 % (1.7-12.7); Neutrophils % 76.8 % (38.7-73.9); Platelet Count 197 T/CUMM (130-400); Red Blood Count 3.29 MC/CUMM (3.8-5.5); Red Cell Distribution Width 14.4 % (9.3-17.3); White Blood Count 11.5 T/CUMM (4-12)
[2022-10-13 06:48] LABS: Calcium 8.3 MG/DL (8.5-10.1); Potassium 3.6 MMOL/L (3.5-5.1)
[2022-10-13] MEDS: ALBUTEROL/IPRATROPIUM 3 ML NEB RESP TX SCH ×4 (07:32→23:50)
[2022-10-13] MEDS: DONEPEZIL 10 MG TABLET PEG SCH (09:40)
[2022-10-13] MEDS: INSULIN GLARGINE 100 UNIT/ML SUBCUT SCH (10:04)
[2022-10-13] MEDS: FERROUS SULFATE 300 MG/5 ML UDCUP PO SCH ×2 (10:04→21:07)
[2022-10-13] MEDS: ZINC OXIDE 16% PASTE 57 GM TUBE TOP SCH ×2 (10:04→21:12)
[2022-10-13] MEDS: levETIRAcetam LIQUID 100 MG/ML 30 ML/BOTTLE PER TUBE SCH ×2 (10:04→21:07)
[2022-10-13] MEDS: PHENYTOIN 100 MG/4 ML UDCUP PER TUBE SCH ×2 (10:04→22:55)
[2022-10-13] MEDS: amLODIPine 5 MG TABLET PEG SCH (10:05)
[2022-10-13] MEDS: FAMOTIDINE 20 MG/2 ML VIAL IV SCH ×2 (10:05→21:07)
[2022-10-13] MEDS: SERTRALINE 100 MG TABLET PEG SCH (10:06)
[2022-10-13] MEDS: predniSONE 20 MG TABLET PO SCH (10:06)
[2022-10-13] MEDS: ATORVASTATIN 80 MG TABLET PEG SCH (21:07)
[2022-10-13] MEDS: ENOXAPARIN 40 MG/0.4 ML SYRINGE SUBCUT SCH (21:07)
[2022-10-14] MEDS: METOPROLOL TARTRATE 5 MG/5 ML VIAL IV SCH ×4 (00:58→18:00)
[2022-10-14 06:08] LABS: Basophils % 0.2 % (0.0-0.8); Eosinophils # 0.1 10*3/uL (0.0-0.87); Eosinophils % 0.6 % (0.00-10.9); Hematocrit 33.6 VOL% (42.0-52.0); Hemoglobin 10.7 GM/DL (14.0-18.0); Immature Granulocytes % 0.2 %; Immature Granulocytes Absolute 0.03 #; Lymphocytes # 1.6 10*3/uL (1.4-4.0); Lymphocytes % 13.1 % (21.2-54.2); Mean Corpuscular HGB Conc 31.8 GM/DL (32-36); Mean Platelet Volume 10.7 FL (9.6-12.0); Monocytes % 7.8 % (1.7-12.7); Neutrophils % 78.1 % (38.7-73.9); Platelet Count 230 T/CUMM (130-400); Red Blood Count 3.43 MC/CUMM (3.8-5.5); Red Cell Distribution Width 14.3 % (9.3-17.3); White Blood Count 12.2 T/CUMM (4-12)
[2022-10-14 06:20] LABS: Calcium 8.5 MG/DL (8.5-10.1); Potassium 3.9 MMOL/L (3.5-5.1)
[2022-10-14] MEDS: ALBUTEROL/IPRATROPIUM 3 ML NEB RESP TX SCH ×3 (07:10→23:05)
[2022-10-14] MEDS: levETIRAcetam LIQUID 100 MG/ML 30 ML/BOTTLE PER TUBE SCH ×2 (10:55→21:24)
[2022-10-14] MEDS: FERROUS SULFATE 300 MG/5 ML UDCUP PO SCH ×2 (10:55→21:24)
[2022-10-14] MEDS: PHENYTOIN 100 MG/4 ML UDCUP PER TUBE SCH ×2 (10:56→22:18)
[2022-10-14] MEDS: DONEPEZIL 10 MG TABLET PEG SCH (10:57)
[2022-10-14] MEDS: SERTRALINE 100 MG TABLET PEG SCH (10:57)
[2022-10-14] MEDS: amLODIPine 5 MG TABLET PEG SCH (10:57)
[2022-10-14] MEDS: predniSONE 20 MG TABLET PO SCH (10:58)
[2022-10-14] MEDS: FAMOTIDINE 20 MG/2 ML VIAL IV SCH ×2 (11:04→21:26)
[2022-10-14] MEDS: ZINC OXIDE 16% PASTE 57 GM TUBE TOP SCH ×2 (11:05→21:28)
[2022-10-14] MEDS: INSULIN GLARGINE 100 UNIT/ML SUBCUT SCH (11:06)
[2022-10-14] MEDS: ATORVASTATIN 80 MG TABLET PEG SCH (21:24)
[2022-10-14] MEDS: ENOXAPARIN 40 MG/0.4 ML SYRINGE SUBCUT SCH (21:24)
[2022-10-15] MEDS: METOPROLOL TARTRATE 5 MG/5 ML VIAL IV SCH ×4 (00:54→17:44)
[2022-10-15 07:13] LABS: Basophils % 0.2 % (0.0-0.8); Eosinophils # 0.1 10*3/uL (0.0-0.87); Eosinophils % 0.8 % (0.00-10.9); Hematocrit 33.2 VOL% (42.0-52.0); Hemoglobin 10.5 GM/DL (14.0-18.0); Immature Granulocytes % 0.1 %; Immature Granulocytes Absolute 0.01 #; Lymphocytes # 1.3 10*3/uL (1.4-4.0); Lymphocytes % 14.1 % (21.2-54.2); Mean Corpuscular HGB Conc 31.6 GM/DL (32-36); Mean Corpuscular Volume 98.5 FL (87-102); Mean Platelet Volume 10.5 FL (9.6-12.0); Monocytes # 0.9 10*3/uL (0.11-0.8); Monocytes % 9.1 % (1.7-12.7); Neutrophils % 75.7 % (38.7-73.9); Platelet Count 207 T/CUMM (130-400); Red Blood Count 3.37 MC/CUMM (3.8-5.5); Red Cell Distribution Width 14.2 % (9.3-17.3); White Blood Count 9.3 T/CUMM (4-12)
[2022-10-15 07:39] LABS: Potassium 4.3 MMOL/L (3.5-5.1)
[2022-10-15] MEDS: ALBUTEROL/IPRATROPIUM 3 ML NEB RESP TX SCH ×2 (07:40→14:50)
[2022-10-15] MEDS: SERTRALINE 100 MG TABLET PEG SCH (10:28)
[2022-10-15] MEDS: amLODIPine 5 MG TABLET PEG SCH (10:28)
[2022-10-15] MEDS: DONEPEZIL 10 MG TABLET PEG SCH (10:28)
[2022-10-15] MEDS: FERROUS SULFATE 300 MG/5 ML UDCUP PO SCH ×2 (10:28→22:04)
[2022-10-15] MEDS: PHENYTOIN 100 MG/4 ML UDCUP PER TUBE SCH ×2 (10:28→22:04)
[2022-10-15] MEDS: predniSONE 20 MG TABLET PO SCH (10:28)
[2022-10-15] MEDS: FAMOTIDINE 20 MG/2 ML VIAL IV SCH ×2 (10:39→22:04)
[2022-10-15] MEDS: ZINC OXIDE 16% PASTE 57 GM TUBE TOP SCH ×2 (10:39→22:05)
[2022-10-15] MEDS: levETIRAcetam LIQUID 100 MG/ML 30 ML/BOTTLE PER TUBE SCH ×2 (10:39→22:05)
[2022-10-15] MEDS: INSULIN GLARGINE 100 UNIT/ML SUBCUT SCH (10:40)
[2022-10-15] MEDS: ENOXAPARIN 40 MG/0.4 ML SYRINGE SUBCUT SCH (22:04)
[2022-10-15] MEDS: ATORVASTATIN 80 MG TABLET PEG SCH (22:04)
[2022-10-16] MEDS: ALBUTEROL/IPRATROPIUM 3 ML NEB RESP TX SCH ×2 (00:44→07:41)
[2022-10-16] MEDS: METOPROLOL TARTRATE 5 MG/5 ML VIAL IV SCH ×3 (00:54→13:54)
[2022-10-16] MEDS: INSULIN GLARGINE 100 UNIT/ML SUBCUT SCH (10:26)
[2022-10-16] MEDS: PHENYTOIN 100 MG/4 ML UDCUP PER TUBE SCH (10:26)
[2022-10-16] MEDS: amLODIPine 5 MG TABLET PEG SCH (10:27)
[2022-10-16] MEDS: FERROUS SULFATE 300 MG/5 ML UDCUP PO SCH (10:27)
[2022-10-16] MEDS: DONEPEZIL 10 MG TABLET PEG SCH (10:27)
[2022-10-16] MEDS: FAMOTIDINE 20 MG/2 ML VIAL IV SCH (10:27)
[2022-10-16] MEDS: predniSONE 20 MG TABLET PO SCH (10:27)
[2022-10-16] MEDS: SERTRALINE 100 MG TABLET PEG SCH (10:27)
[2022-10-16] MEDS: ZINC OXIDE 16% PASTE 57 GM TUBE TOP SCH (10:29)
[2022-10-16] MEDS: levETIRAcetam LIQUID 100 MG/ML 30 ML/BOTTLE PER TUBE SCH (10:30)
[2022-10-16 12:25] VITALS: BP 141/78
[2022-10-16] MEDS ORDERED: APIXABAN 5 MG TABLET PO SCH (21:00)
[2022-10-17] MEDS ORDERED: predniSONE 10 MG TABLET PO SCH (09:00)
== END 2022-10-16 15:05 | DRG 870 ==
LOC: EDBD → EDUNIT# → N.ED 01:29 → SUATTDRO 05:13 → N.EDINP 05:13 → N.CC 05:41 → N.5E 10-09 17:15 → N.2E 10-13 11:30
PROVIDERS: ADMIT Family Medicine; ATTEND Internal Medicine
PROC: EGDWPEG (ICD-10-PCS; 2022-10-06 10:20)